=== PATIENT | female | born 1960 | race Caucasian/White ===

== ENCOUNTER 2018-03-28 11:19 | Emergency (ER) | payer OTHER, SELFPAY ==
[2018-03-28 11:23] VITALS: BP 156/100; PULSE 92; RESP 18; TEMP 36.7; O2SAT 93
--- NOTE | 2018-03-28 11:49 | DI.CT_ITS ---
SYMPTOMS/DIAGNOSIS: SURGICAL HARDWARE, ANTERIOR NECK STIFFNESS, SPASM CERVICAL CT: CT examination of the cervical region was performed without contrast administration. The visualized portions of the brain appear intact. The orbital structures appear intact. The temporal bone structures and mastoid air cells are unremarkable. The visualized paranasal sinuses are clear. The tracheal laryngeal structures appear normal. No cervical mass or adenopathy seen. No mass of the visualized portions of superior mediastinum. The visualized lung apices are clear. Note is made of cervical fusion anteriorly at the C 5 - 6 and C 7 levels which appears to have been present on previous examinations including chest film of November [address] of 2014. There appears to be new hardware at the C 7 - T 1 level both in the anterior vertebral bodies and cerclage wires are present in the posterior elements. There appears to be slight anterior spondylolisthesis of C 7 on T 1 which was not present on previous examination of 2014. I would request that examinations from outside institutions be obtained to evaluate the possibility that the spondylolisthesis is acute or subacute. No evidence of abscess by noncontrast criteria. CONCLUSION: No neck mass or adenopathy. Post surgical changes of the lower cervical spine and C-T junction some of which appear to be new. Please correlate with the patient's surgical history and if clinically appropriate, previous scans or radiographs could be obtained for comparison to evaluate any significant change in alignment.
[2018-03-28 11:53] VITALS: RESP 18
--- NOTE | 2018-03-28 11:56 | ED.GENADUL_ITS ---
Discharge Plan Discharge Details Chief Complaint: SOB Clinical Impression: Cervical paraspinous muscle spasm Primary Care Provider: Kourtney Chahal ED Provider: Tristin Lemus Disposition Patient Disposition: HOME Condition: Improving Home Meds and New Rx's Prescriptions: New baclofen 10 mg tablet 10 mg PO TID PRN (Reason: Muscle pain and spasm) Qty: 20 RF: 0 Continue ipratropium-albuterol [Combivent Respimat] 4 GM mist 1 puff Inhalation QID PRNQty: 1 RF: 12 hydrochlorothiazide 25 MG tablet 1 tab PO DAILY Qty: 90 RF: 12 trazodone 150 MG tablet 150 mg PO HS Qty: 90 RF: 11 prazosin 1 MG capsule PO HS Qty: 100 RF: 2 Citalopram Hydrobromide [Citalopram HBr] 10 MG tablet 10 mg PO DAILY Qty: 90 RF: 11 clonazepam 0.5 MG tablet 0.5 mg PO DAILY PRNQty: 10 RF: 2 Discharge Instructions Instructions: Cervical Strain (ED), Muscle Spasm (ED) Additional Instructions: Please follow-up with Dr. Chahal in the clinic for recheck. Call for an appointment the next 7-14 days time. I do recommend you follow-up with Dr. Dobson at for recheck as well. Continue previously prescribed medications, and may begin baclofen, as prescribed, as needed up to 3 times daily for neck pain and spasm. This may cause mild sedation and should be used with caution with your as needed clonazepam. Return to the ER for worsening pain, the development of weakness, numbness or tingling in the hands or fingers, or any other concern Stand Alone Forms: Physical Therapy Referral Medical Decision Making Medical Records 57-year-old female with bilateral anterior cervical's tenderness and spasm over weeks to months time. She is a history of previous cervical fixation. She is afebrile, well-appearing, with normal motor and sensory exam. She is quite tender overlying sternocleidomastoid bilaterally as well as posteriorly in the paraspinous musculature. She has had some ongoing anxiety and feels that her neck discomfort has been worse since decreasing her use of clonazepam in conjunction with her primary care physician Differential diagnosis includes displaced cervical hardware, edema or infection , muscular spasm. Patient had screening CT scan of the cervical spine and was given baclofen by mouth. CT does not show any soft tissue abnormalities. There is no acute findings of the exception of anterolisthesis since placement of hardware in comparison to previous exam. Patient improved with baclofen. I did discuss case with her primary care physician Dr. Chahal, who agrees a trial of baclofen, referral to physical therapy. Patient stable and improved, appropriate for discharge to home HPI - General Adult General Mode of arrival: ambulatory . Date/Time Provider Initiated Documentation: 03/28/18 11:31 . Limitations to Documentation: no limitations . Information obtained by: patient and family . History of Present Illness 57 year old F presents to the emergency department with the chief complaint of Next, described as moderate, Quality is described as aching, and is localized to the neck. Patient reports no radiation. Patient started experiencing this week(s) and it has been intermittent. No relieving factors improve symptom(s), No exacerbating factors reported . HPI Narrative: 57-year-old female presents from home with her daughter. She states that she has had weeks of near daily episodes of anterior lateral, moderate, nonradiating neck stiffness it is aching constant. It is been worse since having decreased use of as needed clonazepam that she uses for mood. She admits to ongoing moderate to severe anxiety regarding her discomfort, recent changes to her medicines, as well as pending trip to [place] to visit family in approximately 1 month. She states that she was seen for difficulty breathing at [facility] had a follow-up echo cardiogram that were unremarkable. She denies chest pain or shortness of breath today. She has not fallen or hurt her neck. She does not have numbness, tingling, weakness of the upper extremity. She has pre-standing fixation of cervical spine Related Data Previous Rx's Medication Instructions Recorded baclofen 10 mg PO TID PRN #20 tab 03/28/18 Allergies Allergy/AdvReac Type Severity Reaction Status Date / Time Penicillins Allergy Severe SKIN RASH Unverified 03/28/18 11:29 oxycodone AdvReac Mild NAUSEA Unverified 03/28/18 11:29 General Stated Complaint: SOB JACK: 3 Review of Systems Review of Systems 8 systems reviewed, otherwise neg PFSH Family History Mother Asthma Father Hip fracture Alcohol abuse CAD (coronary artery disease) Alzheimer disease Heart disease Sister Heart disease Brother Alcohol abuse Heart disease Hyperlipidemia Mental disorder Cerebrovascular accident Brother Alcohol abuse CAD (coronary artery disease) Brother Alcohol abuse CAD (coronary artery disease) FAMILY HISTORY Essential hypertension Hyperlipidemia Sister No problems noted. Sister No problems noted. Sister No problems noted. Sister No problems noted. Brother No problems noted. Brother Depression Daughter Depression Daughter Depression Asthma Social History Smoking/Tobacco Use Status: Former Tobacco Use Surgical History AXILLARY MASS BX BUNIONECTOMY LIVER BX Ligation of fallopian tube Reduction mammoplasty SKIN GRAFT Spinal Fusion cervical fusion Exam Const General: cooperative and comfortable Nutritional Appearance: average body habitus Orientation: alert, awake and oriented x3 HENMT Head: normal to inspection and normocephalic Eyes General: appearance normal, both eyes and all related structures Eyelids: eyelids normal Pupils: PERRL EOM: EOM intact bilaterally Neck Neck: no lymphadenopathy, no meningeal signs, tender and other (Anterior bilateral paraspinous cervical muscular spasm and tenderness. Posterior midline vertical incision is well-healed. No step-off or deformity appreciated. No posterior midline tenderness) Thyroid: thyroid normal Lymphatic: no lymphadenopathy noted Chest Chest: normal inspection of the chest Resp Effort & Inspection: normal respiratory effort and able to speak in complete sentences Auscultation: clear to auscultation bilaterally Cardio Rate: regular rate Rhythm: regular rhythm Heart Sounds: no murmurs GI Inspection: normal to inspection Palpation: soft and no hepatosplenomegaly Back/Spine/Pelvis Back: No back tenderness Thoracic/Lumbar Spine: other (Healed vertical midline posterior incisions of cervical and lumbar) Skin General skin exam: no rashes or lesions noted and no jaundice Neuro General: alert, awake and oriented x3 Cognition: normal cognition Speech: speech normal Motor: muscle tone normal throughout and strength 5/5 throughout Sensory Exam: no sensory deficits noted Extrem General: normal to inspection Right upper extremity: full ROM Left upper extremity: full ROM Psych Appearance: grossly normal Mood: congruent mood Affect: normal affect Course Vital Signs Temperature 36.7 C 03/28/18 11:23 Pulse 92 H 03/28/18 11:23 Respiratory Rate 18 03/28/18 11:23 Blood Pressure 156/100 H 03/28/18 11:23 Pulse Oximetry 93 L 03/28/18 11:23 Temperature 36.7 C 03/28/18 11:23 Pulse 92 H 03/28/18 11:23 Respiratory Rate 18 03/28/18 11:23 Blood Pressure 156/100 H 03/28/18 11:23 Pulse Oximetry 93 L 03/28/18 11:23
[2018-03-28] MEDS: Baclofen 10 MG TAB PO (11:57)
[2018-03-28 12:33] VITALS: BP 133/92; PULSE 88; RESP 18; TEMP 36.7; O2SAT 93
[2018-03-28 13:05] VITALS: BP 133/92; PULSE 88; RESP 18; TEMP 36.7; O2SAT 93
== END 2018-03-28 13:25 | disposition home or self-care (01) ==
PROVIDERS: Emergency Provider Emergency Medicine; PCP Family Medicine
DX: M62.838 Other muscle spasm (principal)
CPT/HCPCS: 99284; 70490

== ENCOUNTER 2018-05-03 07:58 | Outpatient (CLI) | payer OTHER, SELFPAY ==
--- NOTE | 2018-05-03 08:45 | DI.US_ITS ---
SYMPTOMS/DIAGNOSIS: GLOBUS SENSATION, F45.8, DYSPHAGIA, R13.10, HOARSENESS OF VOICE, R49.0, DYSPNEA, R06.00 THYROID ULTRASOUND: Routine examination. Comparison CT scan of the neck is from 03/28/18. The right lobe of the thyroid gland measures 4.5 x 2 x 2 cm. There is a small 0.2 cm avascular cystic lesion in the inferior pole of the right lobe. There is normal blood flow to the right lobe of the thyroid gland. The isthmus measures 0.5 cm. The left lobe measures 3.7 x 1.1 x 1.4 cm. There is a 1 x 0.5 x 0.9 cm slightly hypoechoic avascular nodule in the lower pole of the left thyroid gland. IMPRESSION: A 1.0 cm solid avascular left thyroid nodule. The finding is nonspecific. Followup as clinically appropriate. Otherwise negative thyroid ultrasound.
== END 2018-05-03 08:18 ==
PROVIDERS: PCP Family Medicine; Visit Provider Otolaryngology Otolaryngology/Facial Plastic Surgery
DX: F45.8 Other somatoform disorders (principal); R13.10 Dysphagia, unspecified; R49.0 Dysphonia; R06.00 Dyspnea, unspecified; E04.1 Nontoxic single thyroid nodule
CPT/HCPCS: 76536

== ENCOUNTER 2018-05-10 00:48 | Outpatient (CLI) | payer OTHER, SELFPAY ==
--- NOTE | 2018-05-10 09:09 | DI.RAD_ITS ---
SYMPTOMS/DIAGNOSIS: DYSPHAGIA, R13.10, GLOBUS SENSATION, F45.8 MODIFIED BARIUM SWALLOW: Fluoroscopy Time: 1.52 min The patient swallowed without difficulty. There is no abnormality involving the oropharynx or hypopharynx. There is no evidence of a mass or diverticulum. Please see the procedure report of Bonny Becker for further information.
== END 2018-05-10 01:08 ==
PROVIDERS: PCP Family Medicine; Visit Provider Otolaryngology Otolaryngology/Facial Plastic Surgery
DX: R13.10 Dysphagia, unspecified (principal); F45.8 Other somatoform disorders
CPT/HCPCS: 74220

== ENCOUNTER 2018-05-10 02:35 | Outpatient (CLI) | payer OTHER, SELFPAY | END 2018-05-10 02:55 | PROVIDERS: PCP Family Medicine | DX: R13.12 Dysphagia, oropharyngeal phase (principal) | CPT/HCPCS: 92611 ==

== ENCOUNTER 2018-07-12 01:53 | Outpatient (CLI) | payer OTHER, SELFPAY ==
[2018-07-12 10:08] LABS: HCT 46.5 % (36.0-46.0); Mean Corp. HGB Concentration 32.3 g/dL (32.0-36.0); Mean Corpuscular Volume 96.1 fL (80-95); Mean Platelet Volume 9.2 fL (8.0-11.0); Platelet Count 269 x1000/uL (130-400); RBC 4.84 m/cumm (4.00-5.20); RBC Distribution Width 12.7 % (11.7-14.6); White Blood Cell Count 8.96 k/cumm (4.4-10.8)
[2018-07-12 11:10] LABS: ALT 23 U/L (12-78); AST 16 U/L (15-37); Albumin 3.8 g/dL (3.4-5.0); Alkaline Phosphatase 75 U/L (46-116); Anion Gap 6.2 mmol/L (3-11); BUN 16 mg/dL (7-18); Bilirubin, Total 0.3 mg/dL (0.2-1.0); CO2 30.8 mmol/L (21.0-32.0); CREATININE 0.86 mg/dL (0.55-1.02); Calcium 9.6 mg/dL (8.5-10.1); Chloride 104 mmol/L (98-107); Cholesterol 261 mg/dL (50-200); Glucose 89 mg/dL (70-100); HDL Cholesterol 74 mg/dL (40-60); LDL CHOLESTEROL 160 mg/dL (<100); Potassium 4.8 mmol/L (3.5-5.1); Sodium 141 mmol/L (136-145); Total Protein 7.3 g/dL (6.4-8.2); Triglyceride 149 mg/dL (30-150)
== END 2018-07-12 02:13 ==
PROVIDERS: PCP Family Medicine; Visit Provider Family Medicine
DX: I10 Essential (primary) hypertension (principal); D75.1 Secondary polycythemia; I27.20 Pulmonary hypertension, unspecified
CPT/HCPCS: 36415; 80053; 80061; 83721; 85027; 85025

== ENCOUNTER 2018-10-17 15:56 | Outpatient (CLI) | payer OTHER, SELFPAY ==
--- NOTE | 2018-10-17 09:10 | DI.RAD_ITS ---
SYMPTOMS/DIAGNOSIS: ABD PAIN, DIVERTICULITIS, CONSTIPATION, R10.9, K57.92, K59.00 ABDOMEN: Three views were obtained. The bowel gas is unremarkable. No gross free intraperitoneal air identified on upright view.
== END 2018-10-17 16:16 ==
PROVIDERS: PCP Family Medicine; Visit Provider Family Medicine
DX: R10.9 Unspecified abdominal pain (principal); K57.92 Diverticulitis of intestine, part unspecified, without perforation or abscess without bleeding; K59.00 Constipation, unspecified
CPT/HCPCS: 74018

== ENCOUNTER 2019-03-06 16:23 | Outpatient (CLI) | payer OTHER, SELFPAY ==
[2019-03-06 17:08] LABS: Abs Immature Grans 0.02 k/cumm (0.0-0.09); Absolute Eosinophil Count 0.34 k/cumm (0.0-0.7); Absolute Lymphocyte Count 3.06 k/cumm (1.2-3.4); Absolute Monocyte Count 0.51 k/cumm (0.11-0.7); Absolute Neutrophil Count 4.48 k/cumm (1.2-6.7); Basophils % 1.2; HCT 47.5 % (36.0-46.0); HGB 15.7 g/dL (12.0-15.5); Immature Grans % 0.2; Mean Corp. HGB Concentration 33.1 g/dL (32.0-36.0); Mean Corpuscular Hemoglobin 32.3 pg (27.0-33.0); Mean Corpuscular Volume 97.7 fL (80-95); Mean Platelet Volume 9.6 fL (8.0-11.0); Neutrophils % 52.6; Platelet Count 254 x1000/uL (130-400); RBC 4.86 m/cumm (4.00-5.20); RBC Distribution Width 13.4 % (11.7-14.6); White Blood Cell Count 8.51 k/cumm (4.4-10.8)
[2019-03-06 17:49] LABS: D-Dimer 304 ng/mlFEU (<500)
[2019-03-06 17:54] LABS: ALT 36 U/L (12-78); AST 30 U/L (15-37); Albumin 4.1 g/dL (3.4-5.0); Alkaline Phosphatase 92 U/L (46-116); Anion Gap 9.3 mmol/L (3-11); BUN 14 mg/dL (7-18); Bilirubin, Total 0.3 mg/dL (0.2-1.0); CO2 29.7 mmol/L (21.0-32.0); CREATININE 0.97 mg/dL (0.55-1.02); Calcium 9.4 mg/dL (8.5-10.1); Chloride 101 mmol/L (98-107); Estimated GFR 58.98 (mL/min/1.73m2); Glucose 117 mg/dL (70-100); Potassium 3.8 mmol/L (3.5-5.1); Sodium 140 mmol/L (136-145); TSH (W/Ref FT4) 1.86 uIU/mL (0.36-3.74); Total Protein 7.8 g/dL (6.4-8.2)
== END 2019-03-06 16:43 ==
PROVIDERS: PCP Family Medicine; Visit Provider Family Medicine
DX: D75.1 Secondary polycythemia (principal); I27.20 Pulmonary hypertension, unspecified; R06.02 Shortness of breath
CPT/HCPCS: 36415; 80053; 84443; 85025; 85379

== ENCOUNTER 2019-03-12 01:27 | Outpatient (CLI) | payer OTHER, SELFPAY ==
--- NOTE | 2019-03-12 08:31 | DI.CT_ITS ---
SYMPTOM/DIAGNOSIS: K SOB D75.1, I 27.20, R06.[address]: 03/12 CT examination of the chest was performed with a bolus infusion of 70 cc Omnipaque 350. Note is made of anterior fusion of the lower cervical spine. Fixation plate and screws in place. Images obtained through the upper abdomen show unremarkable appearance of visualized portions of liver, spleen, pancreas, adrenals and kidneys. There is no evidence of mediastinal or hilar adenopathy. No evidence of pulmonary embolic disease. No thoracic aortic dissection or aneurysm. The lungs are clear with mild scattered central lobular emphysematous changes. Tracheobronchial tree appears intact. CONCLUSION: Mild changes of emphysema. No other specific abnormality.
[2019-03-12] MEDS: Omnipaque 350 MG/ML 100 ML BTL IJ (08:51)
== END 2019-03-12 01:47 ==
PROVIDERS: PCP Family Medicine; Visit Provider Family Medicine
DX: D75.1 Secondary polycythemia (principal); I27.20 Pulmonary hypertension, unspecified; R06.02 Shortness of breath; J43.9 Emphysema, unspecified
CPT/HCPCS: 71260; J3490

== ENCOUNTER 2019-03-27 00:34 | Outpatient (CLI) | payer OTHER, SELFPAY ==
--- NOTE | 2019-03-27 07:30 | MERGE_ITS ---
*[facility]* *[facility]* [address] [place] [address] Date of study: 03/27/2019 Transthoracic Echocardiography M-mode, complete 2D, complete spectral Doppler, and color Doppler *STUDY CONCLUSIONS* Summary: 1. Left ventricle: The cavity size was normal. Systolic function was normal. The estimated ejection fraction was 60-65%. There was no evidence of elevated ventricular filling pressure by Doppler parameters. 2. Aorta: Ascending aortic diameter: 3.9cm (S). 3. Ascending aorta: The ascending aorta was moderately dilated. 4. Right ventricle: The cavity size was normal. Wall thickness was normal. Systolic function was normal. 5. Pulmonary arteries: Pulmonary systolic pressure was in the range of 20mm Hg to 30mm Hg. 6. Inferior vena cava: The vessel was patent and normal in size. The respirophasic diameter changes were in the normal range (greater than or equal to 50%), consistent with normal central venous pressure. *PATIENT PRESENTATION* Height: 167.6cm (66in ) S/D Pressure: 141 / 85 Weight: 93.9kg (206.6lb ) BSA: 2.13m^2 Test start time: 07:45 AM. Test stop time: 08:40 AM. CONSULTING Kourtney Chahal ORDERING Kourtney Chahal REFERRING Kourtney Chahal PERFORMING Unknown PERFORMING [facility] MUSIC AGENT Giuliana Gerardo, (Lili)(KAVON)ROBERT *PROCEDURE DATA* Procedure information: The patient was identified by two identifiers. This study was interpreted by [facility]. Pertinent images and digital data are archived for permanent storage and are available for subsequent review. Comparison was made to the study of 12/22/2017. Study status: Routine. Transthoracic echocardiography. M-mode, complete 2D, complete spectral Doppler, and color Doppler. A Transthoracic Echocardiogram was performed. Scanning was performed from the parasternal, apical, subcostal, and suprasternal notch acoustic windows. Images were obtained using an [id number] cardiac ultrasound machine. Image quality was adequate. Study completion: The patient tolerated the procedure well. History: PMH: Pulmonary HTN SOB. I27.20 r06.02. *CARDIAC ANATOMY* Left ventricle: The cavity size was normal. Systolic function was normal. The estimated ejection fraction was 60-65%. There was no evidence of elevated ventricular filling pressure by Doppler parameters. Aortic valve: Doppler: There was no stenosis. There was no regurgitation. VTI ratio of LVOT to aortic valve: 0.75. Valve area (VTI): 2.4cm^2. Indexed valve area (VTI): 1.1cm^2/m^2. Peak velocity ratio of LVOT to aortic valve: 0.76. Valve area (Vmax): 2.5cm^2. Indexed valve area (Vmax): 1.2cm^2/m^2. Mean velocity ratio of LVOT to aortic valve: 0.8. Valve area (Vmean): 2.6cm^2. Indexed valve area (Vmean): 1.2cm^2/m^2. Mean gradient (S): 2.8mm Hg. Peak gradient (S): 4.5mm Hg. Aorta: Aortic root: The aortic root was normal in size. Ascending aorta: The ascending aorta was moderately dilated. Mitral valve: Doppler: There was no evidence for stenosis. There was no significant regurgitation. Valve area by pressure half-time: 4cm^2. Indexed valve area by pressure half-time: 1.9cm^2/m^2. Left atrium: The atrium was normal in size. Atrial septum: Poorly visualized. Right ventricle: The cavity size was normal. Wall thickness was normal. Systolic function was normal. Pulmonic valve: Doppler: There was no evidence for stenosis. There was no significant regurgitation. Peak gradient (S): 2.5mm Hg. Tricuspid valve: Doppler: There was mild regurgitation. Pulmonary artery: Poorly visualized. Pulmonary systolic pressure was in the range of 20mm Hg to 30mm Hg. Right atrium: The atrium was normal in size. Pericardium: There was no pericardial effusion. Systemic veins: Inferior vena cava: Well visualized. The vessel was patent and normal in size. The respirophasic diameter changes were in the normal range (greater than or equal to 50%), consistent with normal central venous pressure. Baseline ECG: Normal sinus rhythm. Measurements Left ventricle Value 12/22/2017 Reference LV ID, ED, PLAX 3.7 cm 4.1 3.5 - 6.0 LV ID, ES, PLAX 2.5 cm 2.8 2.1 - 4.0 LV PW thickness, ED, PLAX 1.1 cm 1.0 LV end-diastolic volume, 65 ml 43 1-p A2C LV ejection fraction, 1-p 61 % 70 A2C LV end-diastolic volume, 56 ml 76 1-p A4C LV ejection fraction, 1-p 56 % 65 A4C LV e', lateral 0.093 m/sec 0.087 LV E/e', lateral 5 8 LV e', medial 0.094 m/sec 0.069 LV E/e', medial 5 10 LV e', average 0.094 m/sec 0.078 LV E/e', average 5 9 Ventricular septum Value 12/22/2017 Reference IVS thickness, ED, PLAX 1.3 cm 1.0 LVOT Value 12/22/2017 Reference LVOT ID, A-P 2.0 cm 2.0 LVOT area 3.2 cm^2 3.1 LVOT peak velocity, S 0.8 m/sec 0.97 LVOT mean velocity, S 0.64 m/sec 0.75 LVOT VTI, S 17.3 cm 21.6 LVOT peak gradient, S 2.6 mm Hg 3.8 LVOT mean gradient, S 1.8 mm Hg 2.5 Stroke volume (SV), LVOT 56 ml 66 DP Stroke index (SV/bsa), 26 ml/m^2 34 LVOT DP Aortic valve Value 12/22/2017 Reference Aortic valve peak 1.1 m/sec 1.3 velocity, S Aortic valve mean 0.8 m/sec 0.9 velocity, S Aortic valve VTI, S 23.0 cm 25.9 Aortic mean gradient, S 2.8 mm Hg 3.4 Aortic peak gradient, S 4.5 mm Hg 6.5 VTI ratio, LVOT/AV 0.75 0.83 Aortic valve area, VTI 2.4 cm^2 2.6 Velocity ratio, peak, 0.76 0.76 LVOT/AV Aortic valve area, peak 2.5 cm^2 2.4 velocity Velocity ratio, mean, 0.8 0.85 LVOT/AV Aortic valve area, mean 2.6 cm^2 2.6 velocity Aortic valve area/bsa, 1.2 cm^2/m^2 1.3 mean velocity Aorta Value 12/22/2017 Reference Aortic root ID, ED 3.6 cm 3.4 Ascending aorta ID, A-P, S 3.9 cm 3.8 Left atrium Value 12/22/2017 Reference LA ID, A-P, ES 2.7 cm 2.2 LA ID/bsa, A-P 1.3 cm/m^2 1.1 <=2.2 LA volume/bsa, ES, 1-p A4C 24 ml/m^2 14 LA volume, ES, 2-p 45 ml 36 LA volume/bsa, ES, 2-p 21 ml/m^2 18 LA/aortic root ratio 0.76 0.66 Mitral valve Value 12/22/2017 Reference Mitral E-wave peak 0.5 m/sec 0.66 velocity Mitral A-wave peak 0.78 m/sec 0.86 velocity Mitral deceleration time 191 ms 244 150 - 230 Mitral pressure half-time 55 ms 71 Mitral E/A ratio, peak 0.64 0.77 Mitral valve area, PHT, DP 4 cm^2 3.1 Tricuspid valve Value 12/22/2017 Reference Tricuspid regurg peak 2.5 m/sec 2.8 velocity Tricuspid peak RV-RA 24.2 mm Hg 31.6 gradient Right atrium Value 12/22/2017 Reference RA area, ES, A4C 11.5 cm^2 12 8.3 - 19.5 Pulmonic valve Value 12/22/2017 Reference Pulmonic peak gradient, S 2.5 mm Hg Legend: (L) and (H) lauri values outside specified reference range. I have personally reviewed the images and have reviewed and edited the reported findings. Electronically signed by Satish Dickens MD 03/27/2019 13:13
== END 2019-03-27 00:54 ==
PROVIDERS: PCP Family Medicine; Visit Provider Family Medicine
DX: I27.20 Pulmonary hypertension, unspecified (principal); R06.02 Shortness of breath; I35.1 Nonrheumatic aortic (valve) insufficiency
CPT/HCPCS: 93306

== ENCOUNTER 2019-04-18 01:01 | Outpatient (CLI) | payer OTHER, SELFPAY ==
--- NOTE | 2019-04-18 10:00 | DI.MAMMO_ITS ---
EXAM: MG MAMMO SCREENING CLINICAL HISTORY: Screening, Z12.31. TECHNIQUE: Mammograms were interpreted according to the usual protocol including computer analysis w real trends CAD system, tomosynthesis and C-view imaging. COMPARISON: No exams were available for comparison FINDINGS: The breast tissue is moderately radiodense. There is no evidence of a mass. There are no suspicious calcifications. IMPRESSION: There is no evidence of malignancy, category 1, yearly screening mammography is recommended. BI-RADS category B BI-RADS Cat 1 - Negative Breast Density - Category B - Scattered areas of fibroglandular density
== END 2019-04-18 01:21 ==
PROVIDERS: PCP Family Medicine; Visit Provider Family Medicine
DX: Z12.31 Encounter for screening mammogram for malignant neoplasm of breast (principal)
CPT/HCPCS: 77063; 77067

== ENCOUNTER 2019-06-11 08:58 | Day surgery (SDC) | payer OTHER, SELFPAY ==
--- NOTE | 2019-06-11 06:47 | COLE_ITS ---
Date of service: 06/11/19 Time of Service: 10:07 Colonoscopy Report Date of procedure: 06/11/19 Pre-op diagnosis general: Colon CAncer Screening and change in bowel habits Post-op diagnosis procedure note: other (Polyps, diverticulosis) Procedure: Colonoscopy with polypectomy by cold forceps Surgeon: Karon Dao Anesthesia proc note operative: other (General/ ASA 3/Jami Rodriguez, CUSTOMER ENGAGEMENT MANAGER) Estimated blood loss (mL): 3 Complications: None Disposition: same day Indications: Mrs. Du is a pleasant 58 year old female seen in the office for a screening colonoscopy. She also has noted some change in bowel habits. Risks, benefits and complications have been reviewed. Complications include but are not limited to bleeding, pain, perforation, missed small lesion/polyp, sore throat, aspiration and adverse reaction to the medications. Questions were entertained and answered to their satisfaction and they wished to proceed. No guarantees were given or implied. Prep: Miralax/Dulcolax Procedure Start Time: 10:07 Procedure End Time: 10:38 Retraction Time: 23 minutes Findings: Moderate descending and sigmoid diverticulosis Multiple polyps Procedure Description: After informed consent was obtained the patient was taken to the procedure room and placed in a left decubitous position. Monitors were applied and a time out was done. The patients name, date of , procedure, allergies to medications and metal in their body was reviewed. The patient was then sedated. Once sedated and comfortable a rectal exam was done. External exam was normal. Internal exam revealed a normal sphincter tone and no palpable masses. The scope was then introduced and retro-flexed. No internal hemorrhoids, or masses were identified on retro-flexion. The scope was then advanced to the cecum without difficulty. The TI and appendiceal orifice were identified. The prep was adequate. The scope was then slowly retracted over 23 minutes back into the rectum. Polyps were removed with cold forceps in the Ascending colon x2, descending colon x1 and rectal polyps x2. There was moderate diverticulosis of the descending and sigmoid colon. The scope was removed and the patient was woken up and taken back to Same day surgery in stable condition. The patient tolerated the procedure well and there were no immediate complications. Follow up: The patient should follow up in 3-5 years unless they develop changes in bowel habits or other new gastrointestinal complaints.
--- NOTE | 2019-06-11 06:50 | W.PM.DSUDISC ---
Discharge Plan Disposition Patient Disposition: HOME Condition: Good Discharge Details Reason For Visit: SCREENING Attending Provider: Karon Dao Primary Care Provider: Kourtney Chahal Home Meds and New Rx's Prescriptions: Continued Symbicort 160-4.5 mcg/actuation HFA aerosol inhaler 2 puff IH BID Qty: 10.2 RF: 6 albuterol sulfate 90 mcg/actuation HFA aerosol inhaler 2 puff IH QID RF: 0 ipratropium-albuterol 20-100 mcg/actuation mist 1 puff IH QID RF: 0 hydrochlorothiazide 25 mg tablet 25 mg PO DAILY Qty: 90 RF: 3 trazodone 150 mg tablet 150 mg PO HS PRN (Reason: insomnia) Qty: 90 RF: 4 lorazepam 0.5 mg tablet 0.5 mg PO BID PRN (Reason: anxiety) Qty: 45 RF: 0 Discontinued polyethylene glycol 3350 17 gram/dose powder 238 g PO ONCE Qty: 238 RF: 0 bisacodyl [Dulcolax (bisacodyl)] 5 mg tablet,delayed release (DR/EC) 5 mg PO ONCE Qty: 4 RF: 0 Discharge Instructions Instructions: Colonoscopy (DC), Diverticulosis (DC), Colorectal Polyps (DC) Additional Instructions: Findings: 5 small polyps Diverticulosis Follow up: 3-5 years. You will receive a letter with my final recommendations in about 7-10 days Please call if you develop: fevers >101.5 Nausea or Vomiting Abdominal pain that is not transient DAY SURGERY UNIT POST ENDOSCOPY INSTRUCTIONS 1. Because there will be medication in your system for the next 24 hours, you may feel a little sleepy. Your coordination will be affected. Therefore: a. Do not drive or operate dangerous equipment for 24 hours. b. Do not drink alcohol beverages for 24 hours (not even beer). c. Plan to go home and rest for the day. 2. Generally there are no restrictions on your activity after a day or so has gone by, but you may feel a bit fatigued for a few days. 3 After you arrive home you may have a light meal and return to a normal diet as you can tolerate it without feeling sick to your stomach. 4. After surgery, you may feel pain or discomfort. This should be only transient, but if it persists please contact your doctor. 5. If there are any questions regarding the findings of your procedure, please feel free to contact your doctor. 6. If you are unable to contact your doctor with a problem, contact the hospital at [phone]. 7. Continue all your regular medications unless directed otherwise. I understand the above instructions and have no questions. Signature of Patient or Responsible Adult Escort Date/Time Name of Responsible Adult Escort Signature of Nurse Date/Time Activity:: Activity as Tolerated Diet:: High Fiber diet Discharge Orders Discharge Orders: Discharge Order (Routine); Ordered 06/11/19 Ordered By: Karon Dao DS: Diagnosis Discharge Diagnosis (1) S/P colonoscopy: Status: Acute (2) Colorectal polyps: Status: Acute
[2019-06-11 09:07] VITALS: BP 148/103; PULSE 97; RESP 16; TEMP 37; O2SAT 89
[2019-06-11] MEDS: Lactated Ringers 1,000 ML 80 ML IV (09:48)
--- NOTE | 2019-06-11 10:17 | BOWEL_PTH ---
PATIENT: Kandi Du LOC: [facility] U#:[id number] AGE/SX: 58/F ROOM: RE06/11/[address]: Karon Dao MD : 1960 BED: DIS: 06/11/2019 SPEC #: [id number] RECD: 06/11/19 11:37 STATUS: DANILO REQ #: [id number] JAYA: 06/11/19 10:[address]: Karon Dao DEPT: Surgical Specimen RECD BY: Lupe Cummins ENTERED: 06/11/19 11:38 SP TYPE: Bowel OTHR DR: Kourtney Chahal MD, DC Tissues: 1 - BIOPSY BOWEL 2 - BIOPSY BOWEL 3 - BIOPSY BOWEL Procedures: GROSS AND MICRO LEVEL 4 Comments: [id number]
[2019-06-11 11:27] VITALS: BP 135/91; PULSE 73; RESP 16; TEMP 36.2; O2SAT 92
== END 2019-06-11 11:32 | disposition home or self-care (01) ==
LOC: SUR 08:58
PROVIDERS: PCP Family Medicine; Visit Provider Surgery
PROC: 0DJD8ZZ Inspection of Lower Intestinal Tract, Via Natural or Artificial Opening Endoscopic (ICD-10-PCS; CPT 45378; principal; 2019-06-11 10:15)
DX: Z12.11 Encounter for screening for malignant neoplasm of colon (principal); K59.09 Other constipation; K57.30 Diverticulosis of large intestine without perforation or abscess without bleeding; D12.2 Benign neoplasm of ascending colon; D12.4 Benign neoplasm of descending colon; K62.1 Rectal polyp; K63.89 Other specified diseases of intestine
CPT/HCPCS: 45380; 88305

== ENCOUNTER 2019-07-31 18:15 | Outpatient (REF) | payer OTHER, SELFPAY ==
--- NOTE | 2019-07-31 16:00 | PAPFT_PTH ---
PATIENT: Kandi Du LOC: [facility] U#:[id number] AGE/SX: 58/F ROOM: RE07/31/[address]: Kourtney Chahal MD, DC : 1960 BED: DIS: 07/31/2019 SPEC #: [id number] RECD: 07/31/19 18:25 STATUS: DANILO REQ #: [id number] JAYA: 07/31/19 16:[address]: Kourtney Chahal DEPT: [facility] Cytology RECD BY: Myranda Reeder Tissues: 1 - CX/ENDOCX FOR PAP SMEARS Procedures: PAP THIN PREP/UVM Screening HPV DNA PROBE Comments: [id number]
== END 2019-07-31 18:35 ==
LOC: LBN 18:15
PROVIDERS: PCP Family Medicine; Visit Provider Family Medicine
DX: Z12.4 Encounter for screening for malignant neoplasm of cervix (principal)
CPT/HCPCS: 88142; 87624

== ENCOUNTER 2019-09-03 09:14 | Outpatient (CLI) | payer OTHER, SELFPAY ==
[2019-09-03 09:48] LABS: HCT 45.5 % (36.0-46.0); Mean Corpuscular Hemoglobin 31.3 pg (27.0-33.0); Mean Platelet Volume 9.2 fL (8.0-11.0); Platelet Count 354 x1000/uL (130-400); RBC 4.79 m/cumm (4.00-5.20); RBC Distribution Width 13.2 % (11.7-14.6); White Blood Cell Count 9.79 k/cumm (4.4-10.8)
[2019-09-03 10:53] LABS: Magnesium 2.2 mg/dL (1.8-2.4); Uric Acid 5.7 mg/dL (2.6-6.0)
[2019-09-03 11:15] LABS: ESR 21 mm/hr (0-30)
[2019-09-03 12:51] LABS: Vitamin D 25 Total 29.9 ng/ml (30-100)
[2019-09-03 14:01] LABS: Calculated LDL 145 mg/dL (<100); Cholesterol 241 mg/dL (<200); HDL Cholesterol 70 mg/dL (40-60); Triglyceride 133 mg/dL (<150); Vitamin B12 587 pg/mL (193-986)
[2019-09-04 09:53] LABS: Alpha 1 Antitrypsin,Serum 116 mg/dL (90-200)
[2019-09-04 11:49] LABS: Hepatitis C Ab w Rflx HCV PCR Reactive (Negative)
[2019-09-06 08:37] LABS: HCV RNA Detection Quantitative 0 IU/mL (Undetected)
== END 2019-09-03 09:34 ==
PROVIDERS: PCP Family Medicine; Visit Provider Family Medicine
DX: I10 Essential (primary) hypertension (principal); E11.9 Type 2 diabetes mellitus without complications; G62.9 Polyneuropathy, unspecified; M25.50 Pain in unspecified joint; J44.9 Chronic obstructive pulmonary disease, unspecified
CPT/HCPCS: 36415; 80061; 82306; 85027; 85652; 86803; 82103; 82607; 83036; 83735; 84550; 87522

== ENCOUNTER 2019-09-17 06:10 | Day surgery (SDC) | payer OTHER, SELFPAY ==
[2019-09-17 06:36] VITALS: BP 129/82; PULSE 80; RESP 18; TEMP 36; O2SAT 92
[2019-09-17] MEDS: Lactated Ringers 1,000 ML 80 ML IV (07:10)
[2019-09-17] MEDS: ceFAZolin 1 GM/50 ML BAG IVPB (12:25)
--- NOTE | 2019-09-17 13:05 | W.PM.DSUDISC ---
Discharge Plan Disposition Patient Disposition: HOME Condition: Good Discharge Details Reason For Visit: NEWSOME'S NEUROMA (R) FOOT Attending Provider: Tristin Gonzalez Primary Care Provider: Kourtney Chahal Home Meds and New Rx's Prescriptions: New ibuprofen 600 mg tablet 600 mg PO TID Qty: 30 RF: 0 hydrocodone-acetaminophen 5-325 mg tablet 1 tab PO Q6H PRN (Reason: pain) Qty: 7 RF: 0 Continued albuterol sulfate 90 mcg/actuation HFA aerosol inhaler 2 puff IH QID PRN (Reason: bronchospasm) RF: 0 hydrochlorothiazide 25 mg tablet 25 mg PO DAILY Qty: 90 RF: 3 trazodone 150 mg tablet 150 mg PO HS PRN (Reason: insomnia) Qty: 90 RF: 4 lorazepam 0.5 mg tablet 0.5 mg PO BID PRN (Reason: anxiety) Qty: 45 RF: 0 Discharge Instructions Additional Instructions: Try to elevate R foot on 1-2 pillows as much as possible for next 48 hours. May put as much weight on R foot as your pain allows. Crutches to walk. Discontinue crutches when you can step on R foot with minimal discomfort. May remove dressings, shower, and get incision wet in 72 hours. May leave incision uncovered when it is dry and sealed. After you remove dressings in 72 hours, can wear usual walking shoes/sneakers when you fit in them comfortably. Follow up with in 3 weeks. Take ibuprofen 3 times/day for 10 days to decrease swelling and inflammation. Take hydrocodone for breakthru pain, if needed. Referrals: Tristin Gonzalez MD [ [facility] STAFF PHYSICIAN] - (f/u in 3 weeks.) Equipment/Supplies: Partial Weight Bearing Crutches Activity:: Activity as Tolerated Remove Dressings/Wound Care:: 72 hours Shower/Bathe:: 72 hours Diet:: As Tolerated Discharge Orders Discharge Orders: Discharge Order (Routine); Ordered 09/17/19 Ordered By: Tristin Gonzalez DS: Diagnosis Discharge Diagnosis (1) Newsome's neuroma of right foot: Status: Acute
--- NOTE | 2019-09-17 16:19 | ROE_ITS ---
DATE OF PROCEDURE: September 17, 2019 PREOPERATIVE DIAGNOSIS: Newsome's neuroma, right foot between third and fourth toes. POSTOPERATIVE DIAGNOSIS: Same. PROCEDURE: Excision of Newsome's neuroma between third and fourth toes of the right foot. ANESTHESIA: General. SURGEON: Tristin Gonzalez M.D. SAP SPECIALIST: Damaris Zheng INDICATIONS: This is a 59-year-old white female who has been experiencing severe pain on the plantar aspect of the right foot. The pain has been progressing to the point where it's difficult for her t o walk. The pain is described as a burning pain that radiates proximally to the ankle. The pain is relieved by rest. I offered her orthotic treatment with a metatarsal pad. She did not want to try f urther conservative treatment. She wished to have the neuroma excised to alleviate her pain so that she can get walking again. The risks and complications of the procedure have been explained to the p atdipika in detail preoperatively. She is especially counseled that she will experience some numbness between the third and fourth toes following resection of the Newsome's neuroma. PROCEDURE: The patient was taken to the operating room on 09/17/2019. She was placed supine. A prox imal tourniquet was applied to the right thigh. A general anesthetic was administered. The right fo ot and ankle were prepped and draped free in the usual sterile fashion. An incision was made on the dorsum of the right foot between the third and fourth toes; it began at the web space between the thi rd and fourth toes and extended proximally about 2.5 inches. The incision was carried down through t he skin and subcu. Blunt-tipped Littler scissors were used to mobilize the soft tissue so that the i ntermetatarsal ligament was visualized. This ligament was then incised and released. The third and fourth metatarsal heads were spread with retractors and the digital nerve was encountered. The patie nt had noticeable enlargement of the digital nerve right at its bifurcation, consistent with a Newsome 's neuroma. I mobilized the digital branches to the nerve and in the distal portion of the wound I t ransected the branches of the plantar cutaneous nerve to the lateral side of the third toe and medial side of the fourth toe. I then grasped the nerve with an Allis clamp and mobilized the nerve proxim ally and put tension on the nerve to bring it up into the wound. I then transected the nerve with Li ttler scissors far proximal to the metatarsal heads. The nerve then was allowed to retract into the depths of the wound. The wound was irrigated with Betadine and saline solution. There were only a f ew bleeders and they were cauterized. The wound margins were then infiltrated with 0.5% Marcaine wit h an epinephrine solution, as was the digital nerve between the third and fourth metatarsals. The sk in edges were approximated with a running subcuticular suture followed by tissue glue. The wound was dressed with Xeroform gauze followed by fluff gauze 4x4's between the toes, wrapped with a 4-inch Ke rlix bandage and then wrapped with an LOLIS bandage. She was placed in a postop shoe. The tourniquet did not need to be used. The patient's anesthesia was reversed without complications. She was disch arged to the recovery room in good condition. The patient was later discharged home from the Day Surgery Unit when fully recovered from her anesthe noel. She was given instructions to try to elevate her right foot on one to two pillows as much as po ssible for the next 48 hours. She will use crutches to walk, weightbearing as tolerated to the right foot. She may discontinue the crutches as soon as she can step fully on her right foot with minimal pain. She may remove her dressings, shower and get her incision wet after 72 hours. She can leave the wound uncovered after 72 hours if it is dry and sealed. She may transition from the postop cristiano l to her regular shoes as soon as swelling allows her to fit comfortably in her own shoes. She will take ibuprofen 600 mg p.o. t.i.d. for ten days. She was also given a prescription of Hydrocodone wit h APAP 5/325, one tablet every six hours, if needed, for breakthrough pain. She will follow-up with me in three weeks for suture removal in the office.
== END 2019-09-17 14:06 | disposition home or self-care (01) ==
PROVIDERS: PCP Family Medicine; Visit Provider Orthopaedic Surgery
PROC: (CPT 28080; principal; 2019-09-17 07:30)
DX: G57.61 Lesion of plantar nerve, right lower limb (principal); I10 Essential (primary) hypertension
CPT/HCPCS: 28080; E0114; J0690; J1885; J2001; J2250

== ENCOUNTER 2020-01-23 09:11 | Emergency (ER) | payer OTHER, SELFPAY ==
[2020-01-23] VITALS (28 sets, daily range): BP systolic 123–163; BP diastolic 62–106; PULSE 83–118; RESP 9–40; TEMP 36.4–36.5; O2SAT 83–98
--- NOTE | 2020-01-23 09:15 | DI.US_ITS ---
EXAM: US ABDOMEN RENAL CLINICAL HISTORY: R/O Cholecystitis, vs kidney stone TECHNIQUE: Ultrasound abdomen performed using standard protocol. COMPARISON: No exams were available for comparison FINDINGS: LIVER: Normal. Mild hepatomegaly. GALLBLADDER: No evidence of cholelithiasis. No evidence of wall thickening. No pericholecystic fluid identified. KIDNEYS: Kidneys are symmetric in size. No evidence of renal calculi. No evidence of hydronephrosis. No renal mass or cyst identified. BILIARY SYSTEM: Common bile duct measures 2.8 mm. No intrahepatic biliary ductal dilation. HORTA'S SIGN: Negative. PANCREAS: Normal where visualized. SPLEEN: Not enlarged. ABDOMINAL AORTA AND IVC: Visualized portions normal caliber. ASCITES: None seen. Renal size in cm: Right: 10 left: 10.8 Echogenicity: Normal Hydronephrosis: No Cyst or mass: No Nephrolithiasis: No Other findings: None Bladder:Normal Prevoid vol:46 cc Both ureteral jets were visualized. IMPRESSION: Mild hepatomegaly otherwise negative examination. No evidence nephrolithiasis or hydronephrosis. Un remarkable gallbladder. No biliary ductal dilatation. DATA REPOSITORY:
--- NOTE | 2020-01-23 09:28 | ED.GENADUL_ITS ---
Discharge Plan Disposition Patient Disposition: HOME Condition: Stable Discharge Details Chief Complaint: Abd Prob Clinical Impression: Acute right flank pain, Incidental pulmonary nodule, less than or equal to 3mm Primary Care Provider: Kourtney Chahal ED Provider: Selina Muniz Home Meds and New Rx's Prescriptions: New ondansetron HCl [Zofran] 4 mg tablet 4 mg PO Q8H PRN (Reason: nausea and vomiting) Qty: 7 RF: 0 No Action albuterol sulfate 90 mcg/actuation HFA aerosol inhaler 2 puff IH QID PRN (Reason: bronchospasm) RF: 0 trazodone 150 mg tablet 150 mg PO HS PRN (Reason: insomnia) Qty: 90 RF: 4 lorazepam 0.5 mg tablet 0.5 mg PO BID PRN (Reason: anxiety) Qty: 45 RF: 3 ibuprofen 600 mg tablet 600 mg PO TID Qty: 30 RF: 0 Discharge Instructions Instructions: Flank Pain (ED) Additional Instructions: Follow up with primary care provider in 3-5 days. Return to ED sooner if any worsening or concerns. Increase oral fluids. On the chest CT you have a 2 mm small nodule in your right lower lobe which needs to be followed up on in the next 6 months. Return to the ED if you have any worsening pain, fever, shortness of breath, chest pain or any other concerns. Referrals: Kourtney Chahal MD, [place] [Primary Care Provider] - Discharge Data Discharge Date/Time-TO BE ENTERED AT DEPARTURE: 01/23/20 13:48 Medical Decision Making 59-year-old female presents to the ED with chief complaint of right upper quadrant abdominal pain which radiates into her back which began increased since last night. She rates his pain 10 out of 10. She reports recent weight loss 20 pounds and associated nausea. Denies fever, diarrhea. Reports straining to have a bowel movement but no constipation. She does have surgical history to her foot and back. Denies any dysuria or problems urinating. She is postmenopausal with a history of tubal ligation. Has a history of anxiety, depression, diverticulosis, hypertension, pulmonary hypertension. 0933: At this time abdominal work-up ordered including CBC, CMP, lipase, urinalysis, ultrasound of abdomen renal to rule out Cholecystitis, gallstones, renal stone. Meds ordered including normal saline 1 L, Zofran 4 mg, Dilaudid 0.5 mg. Patient is slightly tachycardic and hypertensive upon initial exam. Will observe and reevaluate. 1130: Preliminary result received from prior roof technician reports no gallstones or cholecystitis no renal stones. Patient reevaluation and, she is still complaining of moderate right upper quadrant abdominal pain. Discussed options for discharge outpatient general surgery follow-up for possible HIDA scan versus CT abdomen pelvis. Patient opted for CT at this time. GI cocktail ordered. Patient does have a history of hiatal hernia and reports increased stress at home which could be contributing to her abdominal pain. At this time vital signs have improved, heart rate is down to 85 bpm, blood pressure is 125/66. 1206: Informed by director staffing that patient's O2 sat has decreased to 87 to 91% on room air. Patient has no complaints of shortness of breath or cough. She does have some posterior right chest wall tenderness with palpation. She does have a history of COPD and states that she has weaned herself off the steroids and nebulizers recently. She is no longer taking those. Patient sat up in bed placed on 2 L oxygen nasal cannula, she does have clear lung sounds on the right, will add on a chest x-ray to rule out pneumonia or other etiology. At this time also I feel like it could be due to due to the Dilaudid and is causing the patient mild respiratory depression. CT chest abdomen pelvis resulted shows a small incidental 2 mm right upper lobe pulmonary nodule, some scarring to the bases bilateral lung puga, hepatomegaly, IMPRESSION: 1. Mild hepatomegaly. 2. Colonic diverticulosis but no evidence of acute diverticulitis. 3. No acute abdominal or pelvic process. 4. 2 mm noncalcified right upper lobe pulmonary nodule. If there are known risk factors (example smoking), follow-up CT scan in 12 months is recommended. 5. Centrilobular emphysema. 6. No acute pulmonary process. 7. These findings were discussed with the emergency department on the date of the examination. Discussed findings with patient,verbalized understanding. Discussed follow-up with PCP and follow-up CT scan in 6 to 12 months for incidental pulmonary lobe nodule. Patient verbalized understanding. Patient discharged home with Zofran 4 mg as needed for nausea vomiting and given a to go bottle of tramadol 2 tablets in it. Patient remained hemodynamically stable throughout stay. Markedly improved prior to discharge. This text was generated using Ruby Ribbonation system, please disregard any oddities of phrase or misspellings. HPI General Mode of arrival: ambulatory . Date/Time Provider Initiated Documentation: 01/23/20 09:12 . Limitations to Documentation: no limitations . Information obtained by: patient . HPI Narrative: 59-year-old female presents to the ED with chief complaint of right upper quadrant abdominal pain which radiates into her back which began increased since last night. She rates his pain 10 out of 10. She reports recent weight loss 20 pounds and associated nausea. Denies fever, diarrhea. Reports straining to have a bowel movement but no constipation. She does have surgical history to her foot and back. Denies any dysuria or problems urinating. She is postmenopausal with a history of tubal ligation. Has a history of anxiety, depression, diverticulosis, hypertension, pulmonary hypertension. Related Data Home Medications Medication Instructions Recorded Confirmed trazodone 150 mg tablet 150 mg PO HS PRN #90 tab 01/29/19 01/23/20 albuterol sulfate 90 mcg/actuation 2 puff IH QID PRN gm 07/31/19 01/23/20 aerosol inhaler ibuprofen 600 mg PO TID #30 tab 09/17/19 01/23/20 lorazepam 0.5 mg tablet 0.5 mg PO BID PRN #45 tab 10/11/19 01/23/20 ondansetron HCl [Zofran] 4 mg PO Q8H PRN #7 tab 01/23/20 Previous Rx's Medication Instructions Recorded trazodone 150 mg tablet 150 mg PO HS PRN #90 tab 01/29/19 ibuprofen 600 mg PO TID #30 tab 09/17/19 lorazepam 0.5 mg tablet 0.5 mg PO BID PRN #45 tab 10/11/19 ondansetron HCl [Zofran] 4 mg PO Q8H PRN #7 tab 01/23/20 Allergies Allergy/AdvReac Type Severity Reaction Status Date / Time Penicillins Allergy Severe SKIN RASH Unverified 01/23/20 09:24 oxycodone AdvReac Mild NAUSEA Unverified 01/23/20 09:24 General Stated Complaint: Abd Prob JACK: 3 Review of Systems Narrative: Constitutional: Negative for alert and oriented, well groomed, normal body habitus, appears uncomfortable. Recent intended weight loss of 20 pounds. HEENT: Denies trauma, headaches, blurry vision, nasal discharge, sore throat, trouble swallowing. Chest: Denies chest pain, palpitations, irregular rhythm, hypertension. Respiratory: Denies Shortness of breath, cough, hemoptysis. GI: Denies vomiting, diarrhea, constipation. Positive right upper quadrant abdominal pain radiating into the back, associated with nausea. : Denies dysuria, hematuria, rectal bleeding. Reports right flank pain. Neuro: Denies dizziness, blurry vision, weakness, syncope, headache or facial numbness. Hematologic: Denies easy bruising, intolerance to heat or cold, hair loss. 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 Insomnia (Chronic 06/14/16) Keratoacanthoma of chin (Resolved) 12/08/15 right chin Lipoma of axilla (Resolved) 07/28/15 left. removed 05/08 Memory impairment of gradual onset (Acute) Neck pain (Chronic 01/10/15) surgery March,, repeat with titanium plates and cadaver grafts 06/11/15 Polycythemia (Chronic 03/15/16) Pulmonary hypertension (Chronic 12/22/17) Right hand pain (Resolved) 08/17/17 Shortness of breath (Inactive) Speech disturbance (Chronic 07/28/15) Spondylolisthesis at L5-S1 level (Chronic 04/25/13) MRI, LUMBAR 2000: GRADE 1 2 LB surgeries with fusing Unspecified injury of head, sequela (Resolved) 07/28/15 continue post-concussive headaches Unspecified injury of right shoulder and upper arm, subsequent encounter (Resolved) 06/14/17 Surgical History AXILLARY MASS BX cervical fusion 03/2014 C5-6 fusion Teresita Valle[facility] ; 06/11/15 H/O reduction mammoplasty (Resolved) H/O skin graft (Resolved) for lumbar fusion (scars B/L flanks/buttocks H/O spinal fusion (Resolved) 07/25/99 L5-S1 History of bilateral tubal ligation (Resolved) LIVER BX S/P bunionectomy (Resolved) B/L S/P colonoscopy (Acute ~06/11/19) Hyperplastic polyps x2. Tubular adenoma x2. Sessile serrated adenoma x1. SKIN GRAFT FOR LUMBAR FUSION (SCARS B/L FLANKS/BUTTOCKS) Status post cervical spinal arthrodesis (Inactive) Family History Mother , at age 74. Asthma Father , AGE 74 Hip fracture Alcohol abuse CAD (coronary artery disease) Alzheimer disease Heart disease Sister Heart disease Alzheimer disease Brother , AGE 70 Alcohol abuse Heart disease Hyperlipidemia Mental disorder Stroke Brother , AGE 58 CAD (coronary artery disease) Stroke Depression Brother , AGE 55 Alcohol abuse CAD (coronary artery disease) FAMILY HISTORY Essential hypertension Hyperlipidemia Sister Diabetes Hyperlipidemia Sister No problems noted. Sister Asthma Sister Asthma Brother Depression Daughter Depression Daughter Depression Asthma Social History Smoking/Tobacco Use Status: Former Tobacco Use Quit Date: 07/25/10 Tobacco: How many years used: 30 Alcohol Intake: former Drug use: Occasionally Substance use type: former substance user Date of last use: LAST TIME , marijuana, heroin, opiates and painkillers Details: She consumes marijuana edibles. t-1, edibles Caregiver/Support person: No Household members: spouse Housing: house Do you need help understanding health information?: Never Pets and animals: Yes Pets and animals: cat(s) Sexually active: No Do you think of yourself as: straight/heterosexual Current gender identity: female What is your relationship status?: How often do you talk on the phone with friends or family?: three or more times per week How often do you get together with friends or relatives?: twice per week How often do you attend advent or buddhist services?: 1-3 times per year Do you belong to any clubs or organized social groups?: no Panel score (0-1 are the most socially isolated patients): 2 What type of physical activity do you participate in: swimming Duration: 60-90 minutes/day Frequency: 5-6 times per week Lisa/Anabaptist: Latter-Day Special lisa needs: No Seatbelt use: always Drive intox or ride w/intox 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 Appears stated age. Normal body habitus. Head: Normocephalic, no trauma. Eyes: Pupils PERRLA, Red reflex noted, EOM's intact. Eyelids symmetrical without lesions, discharge, or swelling. ENT: Bilateral TM's WNL, External ear normal to inspection, no mastoid TTP, swelling, or erythema, Nasal turbinates WNL, no nasal discharge. Normal dentition, Posterior pharynx WNL, no exudate. Chest: RRR, Normal S1, S2, distal pulses intact. Resp: Lungs clear to auscultation bilaterally, no wheezes, rales, or rhonchi. Musculoskeletal: Normal gait, 5/5 strength to all four extremities. Abdomen: Tender to palpation right upper quadrant, hyperactive bowel sounds all 4 quadrants. Soft, nondistended. Positive Hardin sign on initial exam. Right CVA tenderness. Skin: No suspicious rashes or lesions. Capillary refill less than 2 sec. Neurologic: Cranial nerves II-XII intact. Alert and oriented x 3. DTR's intact. Hematologic/Lymphatic: No ecchymosis, no lymphadenopathy. Course Vital Signs Vital signs: Vital Signs Temperature 36.5 C 01/23/20 09:16 Pulse 118 H 01/23/20 09:16 Respiratory Rate 18 01/23/20 09:16 Blood Pressure 147/102 H 01/23/20 09:16 Pulse Oximetry 94 L 01/23/20 09:16 Temperature 36.5 C 01/23/20 09:16 Temperature Source Temporal Artery Scan 01/23/20 09:16 Pulse 118 H 01/23/20 09:16 Respiratory Rate 18 01/23/20 09:16 Respiratory Effort Non-Labored 01/23/20 09:21 Blood Pressure 147/102 H 01/23/20 09:16 Blood Pressure Position Sitting 01/23/20 09:16 Pulse Oximetry 94 L 01/23/20 09:16 Oxygen Delivery Method Room Air 01/23/20 09:16 Oxygen Flow Rate 0 01/23/20 09:16 Pain Level 10 01/23/20 09:16
[2020-01-23 09:39] LABS: Abs Immature Grans 0.01 k/cumm (0.0-0.09); Absolute Basophil Count 0.05 k/cumm (0.0-0.2); Absolute Eosinophil Count 0.11 k/cumm (0.0-0.7); Absolute Lymphocyte Count 2.98 k/cumm (1.2-3.4); Absolute Monocyte Count 0.45 k/cumm (0.11-0.7); Absolute Neutrophil Count 5.21 k/cumm (1.2-6.7); Basophils % 0.6; Eosinophils % 1.2; HCT 46.8 % (36.0-46.0); HGB 15.3 g/dL (12.0-15.5); Immature Grans % 0.1 %; Lymphocytes % 33.8; Mean Corp. HGB Concentration 32.7 g/dL (32.0-36.0); Mean Corpuscular Hemoglobin 30.4 pg (27.0-33.0); Mean Platelet Volume 9.4 fL (8.0-11.0); Monocytes % 5.1; Neutrophils % 59.2; Platelet Count 322 x1000/uL (130-400); RBC 5.03 m/cumm (4.00-5.20); RBC Distribution Width 12.9 % (11.7-14.6); White Blood Cell Count 8.81 k/cumm (4.4-10.8)
[2020-01-23] MEDS: Ondansetron 4 MG/2 ML VIAL IVP (09:45)
[2020-01-23] MEDS: HYDROmorphone 2 MG/ML VIAL 0.5 MG IVP (09:46)
[2020-01-23] MEDS: Normal Saline 1,000 ML 1000 ML IV (09:46)
[2020-01-23 09:55] LABS: ALT 23 U/L (14-59); AST 22 U/L (15-37); Albumin 4.3 g/dL (3.4-5.0); Alkaline Phosphatase 80 U/L (46-116); Anion Gap 10.7 mmol/L (3-11); BUN 18 mg/dL (7-18); Bilirubin, Total 0.5 mg/dL (0.2-1.0); CO2 28.3 mmol/L (21.0-32.0); CREATININE 1.07 mg/dL (0.55-1.02); Calcium 9.7 mg/dL (8.5-10.1); Chloride 100 mmol/L (98-107); Estimated GFR 52.49 (mL/min/1.73m2); Glucose 143 mg/dL (74-106); Lipase 135 U/L (73-393); Potassium 3.4 mmol/L (3.5-5.1); Sodium 139 mmol/L (136-145); Total Protein 8.5 g/dL (6.4-8.2)
[2020-01-23 10:06] LABS: Bilirubin Negative (Negative); Blood Negative (Negative); Clarity Clear (Clear); Glucose Negative (Negative); Ketones 15 mg/dL (Negative); Leukocyte Esterase Trace (Negative); Nitrite Negative (Negative); Specific Gravity >= 1.030 (1.005-1.025); Urobilinogen 0.2 EU/dL (Up TO 0.2); pH 5.5 (5-8)
[2020-01-23 10:24] LABS: Bacteria Many HPF (Negative); C & S Indicated? No/Sq. Contamination; Casts Negative LPF (Negative); Crystals Negative HPF (Negative); Epithelial Cells Many HPF (Negative); Mucus Negative (Negative)
--- NOTE | 2020-01-23 11:30 | DI.CT_ITS ---
EXAM: CT CHEST/ABD/PEL W CLINICAL HISTORY: RUQ abdominal pain, hx of hiatal hernia TECHNIQUE: Imaging Protocol: Axial computed tomography images with coronal and sagittal reformatted images were created and reviewed CONTRAST MATERIAL: Intravenous: Omnipaque 350 Contrast volume:100 mL Oral: No COMPARISON: No exams were available for comparison FINDINGS: Patient motion artifact is present. CHEST: Tracheobronchial tree: Patent where visualized. Mediastinum and Angela: No dominant adenopathy or fluid collection. Pulmonary parenchyma: There is a 2 mm noncalcified pulmonary nodule in the posterolateral aspect of t he right upper lobe. There is scarring seen in the right lower lobe. No focal consolidating infiltr ate is present. Mild centrilobular emphysematous changes. Pleura: No effusion or pneumothorax. Heart: The heart is not dilated. Mild coronary artery calcification is present. No significant peric ardial effusion. Aorta: Atherosclerosis. Lymph nodes: Within normal limits. Bones:Degenerative changes are present in the thoracic spine. Fusion is seen in the lower cervical s pine. ABDOMEN: Liver: Normal density. No measurable mass. Mild hepatomegaly. Portal, Superior Mesenteric, and Splenic Veins: Unremarkable. Gallbladder and Biliary Tract: No radiodense calculus or dilation. Pancreas: Normal density, no abnormal calcifications or inflammatory process. Spleen: Normal. Adrenals: No masses seen. Kidneys: Normal size, contour and axis. No radiodense stones or obstructive uropathy. No masses seen. Abdominal Aorta: Abdominal portion non-dilated. Atherosclerosis. Bowel: No obstruction or bowel wall thickening. Appendix is unremarkable. Colonic diverticulosis but no evidence of acute diverticulitis. Peritoneal Cavity: No ascites, collection or mesenteric inflammatory response. Lymph Nodes: Within normal limits. Bones: Degenerative changes are present. Grade 1 pseudo spondylolisthesis of L5 on S1. Soft Tissues: Unremarkable. PELVIS: Bladder: Symmetric distention, no gross wall thickening. Reproductive Organs: Unremarkable as visualized. Lymph Nodes: Within normal limits. Bones: Please see above. IMPRESSION: 1. Mild hepatomegaly. 2. Colonic diverticulosis but no evidence of acute diverticulitis. 3. No acute abdominal or pelvic process. 4. 2 mm noncalcified right upper lobe pulmonary nodule. If there are known risk factors (example smo yuniel), follow-up CT scan in 12 months is recommended. 5. Centrilobular emphysema. 6. No acute pulmonary process. 7. These findings were discussed with the emergency department on the date of the examination. RADIATION DOSE DELIVERED: Total DLP DATA REPOSITORY: All CT scans at this facility are submitted to the National Radiology Data Registry (NRDR) Dose Index Registry (DIR) with the [employer] (A[employer]). RADIATION OPTIMIZATION: All CT scans at this facility use at least one of these dose optimization te chniques: automated exposure control; mA and/or kV adjustment per patient size (includes targeted exa ms where dose is matched to clinical indication); or iterative reconstruction.
[2020-01-23] MEDS: Omnipaque 350 MG/ML 100 ML BTL IJ (12:59)
== END 2020-01-23 13:48 | disposition home or self-care (01) ==
PROVIDERS: Emergency Provider Registered Nurse Emergency; PCP Family Medicine
DX: R10.11 Right upper quadrant pain (principal); R91.1 Solitary pulmonary nodule; R11.0 Nausea; I10 Essential (primary) hypertension; J44.9 Chronic obstructive pulmonary disease, unspecified; Z87.891 Personal history of nicotine dependence
CPT/HCPCS: 36415; 74177; 76770; 80053; 83690; 96361; 96374; 96375; 99285; 71260; 76700; 81003; 81015; 83735; 85025; 99284; J2405; J3490

== ENCOUNTER 2020-03-09 18:33 | Emergency (ER) | payer OTHER, SELFPAY ==
[2020-03-09 18:37] VITALS: BP 148/92; PULSE 100; RESP 18; TEMP 36.7; O2SAT 94
--- NOTE | 2020-03-09 18:42 | ED.GENADUL_ITS ---
Discharge Plan Disposition Patient Disposition: HOME Condition: Stable Discharge Details Chief Complaint: Cellulitis Clinical Impression: Leg wound, left, Cellulitis of leg, left Primary Care Provider: Kourtney Chahal ED Provider: Delaney Powell Home Meds and New Rx's Prescriptions: New clindamycin HCl 150 mg capsule 450 mg PO TID 7 Days Qty: 63 RF: 0 Continued albuterol sulfate 90 mcg/actuation HFA aerosol inhaler 2 puff IH QID PRN (Reason: bronchospasm) RF: 0 trazodone 150 mg tablet 150 mg PO HS PRN (Reason: insomnia) Qty: 90 RF: 4 lorazepam 0.5 mg tablet 0.5 mg PO BID PRN (Reason: anxiety) Qty: 45 RF: 3 ibuprofen 600 mg tablet 600 mg PO TID Qty: 30 RF: 0 Discharge Instructions Instructions: Cellulitis (ED), Acute Wound Care (ED) Additional Instructions: Keep wound clean and dry. Cover wound with bandage if risk of contamination. Otherwise you can keep the wound open to air if resting at home to allow edges to dry and heal. Apply the topical antibiotic ointment as directed. If you have no relief or worsening of symptoms in the next 24 hours, start the oral antibiotics. Follow-up with your primary care doctor in 1 week. Return to the emergency department with any worsening or new concerning symptoms. Discharge Data Discharge Date/Time-TO BE ENTERED AT DEPARTURE: 03/09/20 19:20 Discharge Physician: Delaney Powell Medical Decision Making 59-year-old female presents with left leg wound sustained on a stick 3 days ago now with worsening redness, pain and swelling. She appears nontoxic. There is a 3 x 1 cm open wound with surrounding cellulitis to the left lower leg. No evidence of abscess. She is neurovascular intact. We will treat with mupirocin. Also give prescription for clindamycin if symptoms do not improve or worsen. She has a history of allergy to penicillin which causes rash and declines Keflex. Advised to follow up with the primary care doctor for re-evaluation. Usual and customary return precautions given prior to discharge. Medical Records Medical records reviewed: Yes I reviewed the patient's medical records. HPI General Mode of arrival: ambulatory . Date/Time Provider Initiated Documentation: 03/09/20 18:33 . Limitations to Documentation: no limitations . Information obtained by: patient . HPI Narrative: Patient is a 59-year-old female presents with left leg wound for the past 3 days after caught on a stick while outside. She has noticed increased pain, redness and swelling to the area and is concerned about infection. She denies any fever. She has been washing the area with soap and water and applying Neosporin and bag balm. Tetanus up-to-date. Related Data Home Medications Medication Instructions Recorded Confirmed trazodone 150 mg tablet 150 mg PO HS PRN #90 tab 01/29/19 03/09/20 albuterol sulfate 90 mcg/actuation 2 puff IH QID PRN gm 07/31/19 03/09/20 aerosol inhaler ibuprofen 600 mg PO TID #30 tab 09/17/19 03/09/20 lorazepam 0.5 mg tablet 0.5 mg PO BID PRN #45 tab 10/11/19 03/09/20 clindamycin HCl 450 mg PO TID 7 Days #63 cap 03/09/20 Previous Rx's Medication Instructions Recorded trazodone 150 mg tablet 150 mg PO HS PRN #90 tab 01/29/19 ibuprofen 600 mg PO TID #30 tab 09/17/19 lorazepam 0.5 mg tablet 0.5 mg PO BID PRN #45 tab 10/11/19 clindamycin HCl 450 mg PO TID 7 Days #63 cap 03/09/20 Allergies Allergy/AdvReac Type Severity Reaction Status Date / Time Penicillins Allergy Severe SKIN RASH Unverified 03/09/20 18:41 oxycodone AdvReac Mild NAUSEA Unverified 03/09/20 18:41 General Stated Complaint: Cellulitis JACK: 3 Review of Systems All systems reviewed & are unremarkable except as noted in HPI and below Constitutional Constitutional: Reports as per HPI, Denies chills and Denies fever(s) Eyes Eyes: Denies blurry vision ENT Ears, Nose, Mouth, and Throat: Denies dizziness, Denies sore throat and Denies throat swelling Cardiovascular Cardiovascular: Denies chest pain and Denies dyspnea Respiratory Respiratory: Denies cough and Denies dyspnea Gastrointestinal Gastrointestinal: Denies abdominal pain, Denies diarrhea and Denies vomiting Genitourinary Genitourinary: Denies hematuria and Denies dysuria Musculoskeletal Musculoskeletal: Denies back pain and Denies numbness Integumentary/Breasts Skin/Breast: Reports lesions and Denies rash Neurologic Neurologic: Denies dizziness, Denies localized weakness and Denies numbness Allergic/Immunologic Allergic/Immunologic: Denies throat swelling [facility] Medical History (Updated 03/09/20 @ 19:07 by Delaney Powell DO) Anxiety (Chronic 12/26/12) 11/24/17/ SYBIL 7 SCORE=20 Chronic pain (Chronic 02/28/15) Colorectal polyps (Inactive) Depressive disorder (Chronic 11/22/12) Diverticula of colon (Chronic) Diverticulosis (Acute) Essential hypertension (Chronic) Headache (Chronic 04/25/13) HEAD CT 2005 NORMAL History of drug abuse (Resolved) 11/22/12 h/o heroin, rehab [employer] [facility];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 2016:27 years sober! Insomnia (Chronic 06/14/16) Keratoacanthoma of chin (Resolved) 12/08/15 right chin Lipoma of axilla (Resolved) 07/28/15 left. removed 05/08 Memory impairment of gradual onset (Acute) Neck pain (Chronic 01/10/15) surgery March,, repeat with titanium plates and cadaver grafts 06/11/15 Polycythemia (Chronic 03/15/16) Pulmonary hypertension (Chronic 12/22/17) Right hand pain (Resolved) 08/17/17 Shortness of breath (Inactive) Speech disturbance (Chronic 07/28/15) Spondylolisthesis at L5-S1 level (Chronic 04/25/13) MRI, LUMBAR 2000: GRADE 1 2 LB surgeries with fusing Unspecified injury of head, sequela (Resolved) 07/28/15 continue post-concussive headaches Unspecified injury of right shoulder and upper arm, subsequent encounter (Resolved) 06/14/17 Surgical History AXILLARY MASS BX cervical fusion 03/2014 C5-6 fusion Teresita Vallejo ; 06/11/15 H/O reduction mammoplasty (Resolved) H/O skin graft (Resolved) for lumbar fusion (scars B/L flanks/buttocks H/O spinal fusion (Resolved) 07/25/99 L5-S1 History of bilateral tubal ligation (Resolved) LIVER BX S/P bunionectomy (Resolved) B/L S/P colonoscopy (Acute ~06/11/19) Hyperplastic polyps x2. Tubular adenoma x2. Sessile serrated adenoma x1. SKIN GRAFT FOR LUMBAR FUSION (SCARS B/L FLANKS/BUTTOCKS) Status post cervical spinal arthrodesis (Inactive) Family History Mother , at age 74. Asthma Father , AGE 74 Hip fracture Alcohol abuse CAD (coronary artery disease) Alzheimer disease Heart disease Sister Heart disease Alzheimer disease Brother , AGE 70 Alcohol abuse Heart disease Hyperlipidemia Mental disorder Stroke Brother , AGE 58 CAD (coronary artery disease) Stroke Depression Brother , AGE 55 Alcohol abuse CAD (coronary artery disease) FAMILY HISTORY Essential hypertension Hyperlipidemia Sister Diabetes Hyperlipidemia Sister No problems noted. Sister Asthma Sister Asthma Brother Depression Daughter Depression Daughter Depression Asthma Social History Smoking/Tobacco Use Status: Former Tobacco Use Quit Date: 07/25/10 Tobacco: How many years used: 30 Alcohol Intake: former Drug use: Occasionally Substance use type: former substance user Date of last use: LAST TIME , marijuana, crack/cocaine, heroin, opiates and painkillers Details: She consumes marijuana edibles. t-1, edibles Caregiver/Support person: No Household members: spouse Housing: house Do you need help understanding health information?: Never Pets and animals: Yes Pets and animals: cat(s) Sexually active: No Do you think of yourself as: straight/heterosexual Current gender identity: female What is your relationship status?: How often do you talk on the phone with friends or family?: three or more times per week How often do you get together with friends or relatives?: twice per week How often do you attend scientologist or presybeterian services?: 1-3 times per year Do you belong to any clubs or organized social groups?: no Panel score (0-1 are the most socially isolated patients): 2 What type of physical activity do you participate in: swimming Duration: 60-90 minutes/day Frequency: 5-6 times per week Lisa/Taoism: Rastafarian Special lisa needs: No Seatbelt use: always Drive 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 Do you feel safe at home: Yes Do you feel safe in your relationship?: Yes Exam Const General: cooperative and healthy appearing Orientation: alert and awake [facility] Head: normal to inspection Ears: hearing grossly normal bilaterally and external ears normal General nose exam: external nose normal Face and sinus: normal facial exam Eyes General: appearance normal, both eyes and all related structures Neck Neck: normal visual inspection Lymphatic: no lymphadenopathy noted Chest Chest: normal inspection of the chest Resp Effort & Inspection: normal respiratory effort and able to speak in complete sentences Cardio Rate: regular rate Skin General skin exam: no rashes or lesions noted Neuro General: patient alert and patient awake Cognition: normal cognition Speech: speech normal Gait: normal gait Motor: muscle tone normal throughout Sensory Exam: no sensory deficits noted Extrem General: full ROM and capillary refill normal Ankle/foot/toe images: 1. [id number] open wound with 1 cm of surrounding erythema, edema and tenderness to left anterior distal leg. There is no fluctuance, drainage or bleeding. No crepitus. Psych Appearance: grossly normal Mental Status: mental status grossly normal Speech and Movement: speech and movement normal Affect: normal affect Thought Process: normal Course Vital Signs Vital signs: Vital Signs Temperature 98.1 F 03/09/20 18:37 Pulse 100 H 03/09/20 18:37 Respiratory Rate 18 03/09/20 18:37 Blood Pressure 148/92 H 03/09/20 18:37 Pulse Oximetry 94 L 03/09/20 18:37 Temperature 98.1 F 03/09/20 18:37 Temperature Source Skin 03/09/20 18:37 Pulse 100 H 03/09/20 18:37 Respiratory Rate 18 03/09/20 18:37 Respiratory Effort Non-Labored 03/09/20 18:39 Blood Pressure 148/92 H 03/09/20 18:37 Blood Pressure Position Sitting 03/09/20 18:37 Pulse Oximetry 94 L 03/09/20 18:37 Oxygen Delivery Method Room Air 03/09/20 18:37 Oxygen Flow Rate 0 03/09/20 18:37 Pain Level 7 03/09/20 18:37
== END 2020-03-09 19:20 | disposition home or self-care (01) ==
PROVIDERS: Emergency Provider Physician Assistant; PCP Family Medicine
DX: L03.116 Cellulitis of left lower limb (principal); S81.832A Puncture wound without foreign body, left lower leg, initial encounter; W26.8XXA Contact with other sharp object(s), not elsewhere classified, initial encounter; I10 Essential (primary) hypertension
CPT/HCPCS: 99283

== ENCOUNTER 2020-03-17 12:26 | Emergency (ER) | payer OTHER, SELFPAY ==
[2020-03-17 12:40] VITALS: BP 196/98; PULSE 116; RESP 18; TEMP 37.2; O2SAT 93
--- NOTE | 2020-03-17 13:40 | ED.GENADUL_ITS ---
Discharge Plan Disposition Patient Disposition: OTHER Discharge Details Chief Complaint: Cellulitis Clinical Impression: Rash Primary Care Provider: Kourtney Chahal ED Provider: Redd Canchola Home Meds and New Rx's Prescriptions: Continued albuterol sulfate 90 mcg/actuation HFA aerosol inhaler 2 puff IH QID PRN (Reason: bronchospasm) RF: 0 prednisone 20 mg tablet 40 mg PO DAILY Qty: 10 RF: 0 trazodone 150 mg tablet 150 mg PO HS PRN (Reason: insomnia) Qty: 90 RF: 4 ibuprofen 600 mg tablet 600 mg PO TID Qty: 30 RF: 0 No Action lorazepam 0.5 mg tablet 0.5 mg PO BID PRN (Reason: anxiety) Qty: 45 RF: 3 Discharge Instructions Additional Instructions: Patient eloped Discharge Data Discharge Date/Time-TO BE ENTERED AT DEPARTURE: 03/17/20 13:19 Medical Decision Making <MADELEINE Mcguire - Last Filed: 03/18/20 08:21> 59-year-old female presents for a right lower extremity painful rash. As described in the HPI the area is with ecchymosis, papule, no petechiae, non- blanchable. Clinically it appears more traumatic in nature but she denies any trauma. Given the 10 at a 10 pain, burning sensation, certainly cannot rule out shingles but this is not a typical shingles rash. We did asked Dr. Aguiar to personally evaluate the patient given the presentation of the rash. He evaluated the patient, please see his note. Plan was to obtain CBC, CMP, evaluate white count, platelet count, liver function. Will provide oral Tylenol, Motrin, antiviral for potential shingles. Patient did request so mething stronger for her discomfort. We will had a discussion that we did not feel as though narcotic analgesia was warranted in this case and we would initiate the Tylenol, Motrin, antiviral. I was told by the patient's RN that she was requesting to speak with me. I went in the room and she told me that she did not want to speak with me and instead wanted to speak with Dr. Aguiar. I made Dr. Aguiar aware of this, he went back into the room to speak with the patient, please see his note. Shortly after it appeared as though the patient had eloped. Laboratory values were not obtained, medications were not given. Medical Records Medical records reviewed: Yes I reviewed the patient's medical records. <Guerrero Aguiar MD - Last Filed: 03/22/20 08:49> Patient seen, examined, and discussed with MADELEINE Canchola. I was asked to see the patient by MADELEINE Canchola. I spoke with her and confirmed HPI is obtained by MADELEINE Canchola. I examined her right lower extremity and noted focal ecchymotic lesions anterior lockett with some small area of excoriation and some slightly raised papules. No fluctuance or induration. No significant erythema. Given atraumatic injury and description of pain, I am most concerned about herpes zoster. Consider other etiologies. Plan to check labs including complete metabolic panel to assess liver function and CBC to assess platelets. Plan to treat pain with high-dose ibuprofen and acetaminophen as well as start antiviral. Patient inquired about stronger analgesic. I explained that opioid analgesic would not be indicated at this time and that we should try the ibuprofen/acetaminophen combination to start. Patient seemed initially agreeab le with this plan. I was then notified by MADELEINE Canchola that patient refused analgesic treatment from nursing and noted that she was upset with treatment plan. I went to discuss her concerns and she informed that she was upset with my communication about treatment plan. I did feel that there was miscommunication as I did not intend to imply drug-seeking behavior - I attempted to apologize for her experience and discuss her concerns and but she demanded to leave immediately. She immediately got up and walked out of the emergency department threatening to contact her PCP to file a complaint. P atient ambulated without dysfunction from the emergency department. I agree with treatment plan as discussed/documented. HPI <MADELEINE Mcguire - Last Filed: 03/18/20 08:21> General Mode of arrival: ambulatory . Date/Time Provider Initiated Documentation: 03/17/20 12:43 . Limitations to Documentation: no limitations . Information obtained by: patient . HPI Narrative: This is a 59-year-old female with history of COPD, chronic pain, anxiety, hypertension, presenting to the ER for a right lower leg rash-pain that began yesterday. She denies any trauma whatsoever. No known environmental exposure. She reports that the pain is severe, 10 out of 10, constant, burning, and feels like a blade cutting her skin. She recently finished antibiotics for left lower leg cellulitis which she reports has healed completely. She denies rash elsewhere on her body. She denies fever, numbness, tingling, weakness, chest pain, shortness of breath, abdominal pain. She denies any joint pain. She has never had a rash like this. Denies easy bruising or bleeding. Related Data Home Medications Medication Instructions Recorded Confirmed trazodone 150 mg tablet 150 mg PO HS PRN #90 tab 01/29/19 03/17/20 albuterol sulfate 90 mcg/actuation 2 puff IH QID PRN gm 07/31/19 03/17/20 aerosol inhaler ibuprofen 600 mg PO TID #30 tab 09/17/19 03/17/20 prednisone 20 mg tablet 40 mg PO DAILY #10 tab 03/17/20 03/17/20 lorazepam 0.5 mg tablet 0.5 mg PO BID PRN #45 tab 03/20/20 Previous Rx's Medication Instructions Recorded trazodone 150 mg tablet 150 mg PO HS PRN #90 tab 01/29/19 ibuprofen 600 mg PO TID #30 tab 09/17/19 prednisone 20 mg tablet 40 mg PO DAILY #10 tab 03/17/20 lorazepam 0.5 mg tablet 0.5 mg PO BID PRN #45 tab 03/20/20 Allergies Allergy/AdvReac Type Severity Reaction Status Date / Time Penicillins Allergy Severe SKIN RASH Unverified 03/17/20 14:03 oxycodone AdvReac Mild NAUSEA Unverified 03/17/20 14:03 General Stated Complaint: Cellulitis JACK: 3 Review of Systems <MADELEINE Mcguire - Last Filed: 03/18/20 08:21> Constitutional Constitutional: Denies fever(s) and Denies weakness Cardiovascular Cardiovascular: Denies chest pain and Denies dyspnea Respiratory Respiratory: Denies dyspnea Gastrointestinal Gastrointestinal: Denies abdominal pain, Denies nausea and Denies vomiting Musculoskeletal Musculoskeletal: Denies joint swelling, Denies numbness and Denies tingling Integumentary/Breasts Skin/Breast: Reports rash Neurologic Neurologic: Denies numbness, Denies tingling and Denies weakness Hematologic/Lymphatic Hematologic/Lymphatic: Denies easy bleeding and Denies easy bruising [facility] <MADELEINE Mcguire - Last Filed: 03/18/20 08:21> Medical History Anxiety (Chronic 12/26/12) 11/24/17/ SYBIL 7 SCORE=20 Chronic pain (Chronic 02/28/15) Colorectal polyps (Inactive) Depressive disorder (Chronic 11/22/12) Diverticula of colon (Chronic) Diverticulosis (Acute) Essential hypertension (Chronic) Headache (Chronic 04/25/13) HEAD CT 2005 NORMAL History of drug abuse (Resolved) 11/22/12 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 2016:27 years sober! Insomnia (Chronic 06/14/16) Keratoacanthoma of chin (Resolved) 12/08/15 right chin Lipoma of axilla (Resolved) 07/28/15 left. removed 05/08 Memory impairment of gradual onset (Acute) Neck pain (Chronic 01/10/15) surgery March,, repeat with titanium plates and cadaver grafts 06/11/15 Polycythemia (Chronic 03/15/16) Pulmonary hypertension (Chronic 12/22/17) Right hand pain (Resolved) 08/17/17 Shortness of breath (Inactive) Speech disturbance (Chronic 07/28/15) Spondylolisthesis at L5-S1 level (Chronic 04/25/13) MRI, LUMBAR 2000: GRADE 1 2 LB surgeries with fusing Unspecified injury of head, sequela (Resolved) 07/28/15 continue post-concussive headaches Unspecified injury of right shoulder and upper arm, subsequent encounter (Resolved) 06/14/17 Surgical History AXILLARY MASS BX cervical fusion 03/2014 C5-6 fusion Teresita Vallejo ; 06/11/15 H/O reduction mammoplasty (Resolved) H/O skin graft (Resolved) for lumbar fusion (scars B/L flanks/buttocks H/O spinal fusion (Resolved) 07/25/99 L5-S1 History of bilateral tubal ligation (Resolved) LIVER BX S/P bunionectomy (Resolved) B/L S/P colonoscopy (Acute ~06/11/19) Hyperplastic polyps x2. Tubular adenoma x2. Sessile serrated adenoma x1. SKIN GRAFT FOR LUMBAR FUSION (SCARS B/L FLANKS/BUTTOCKS) Status post cervical spinal arthrodesis (Inactive) Family History Mother , at age 74. Asthma Father , AGE 74 Hip fracture Alcohol abuse CAD (coronary artery disease) Alzheimer disease Heart disease Sister Heart disease Alzheimer disease Brother , AGE 70 Alcohol abuse Heart disease Hyperlipidemia Mental disorder Stroke Brother , AGE 58 CAD (coronary artery disease) Stroke Depression Brother , AGE 55 Alcohol abuse CAD (coronary artery disease) FAMILY HISTORY Essential hypertension Hyperlipidemia Sister Diabetes Hyperlipidemia Sister No problems noted. Sister Asthma Sister Asthma Brother Depression Daughter Depression Daughter Depression Asthma Social History Smoking/Tobacco Use Status: Former Tobacco Use Quit Date: 07/25/10 Tobacco: How many years used: 30 Alcohol Intake: former Drug use: Occasionally Substance use type: former substance user Date of last use: LAST TIME , marijuana, crack/cocaine, heroin, opiates and painkillers Details: She consumes marijuana edibles. t-1, edibles Caregiver/Support person: No Household members: spouse Housing: house Do you need help understanding health information?: Never Pets and animals: Yes Pets and animals: cat(s) Sexually active: No Do you think of yourself as: straight/heterosexual Current gender identity: female What is your relationship status?: How often do you talk on the phone with friends or family?: three or more times per week How often do you get together with friends or relatives?: twice per week How often do you attend mandaen or sabianist services?: 1-3 times per year Do you belong to any clubs or organized social groups?: no Panel score (0-1 are the most socially isolated patients): 2 What type of physical activity do you participate in: swimming Duration: 60-90 minutes/day Frequency: 5-6 times per week Lisa/Islam: Jehovah'S Witness Special lisa needs: No Seatbelt use: always 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 Do you feel safe at home: Yes Do you feel safe in your relationship?: Yes Exam <MADELEINE Mcguire - Last Filed: 03/18/20 08:21> Const General: cooperative, healthy appearing, comfortable and no acute distress Orientation: alert and awake HENCA Head: normal to inspection, normocephalic and atraumatic Face and sinus: normal facial exam Mouth: moist mucous membranes Eyes Conjunctivae: conjunctivae normal Sclera: sclerae normal Neck Neck: normal visual inspection, full ROM, trachea midline and supple Resp Effort & Inspection: normal respiratory effort and able to speak in complete sentences Auscultation: clear to auscultation bilaterally Cardio Rate: tachycardic (108) Rhythm: regular rhythm GI Inspection: normal to inspection Back/Spine/Pelvis Back: No back tenderness and other (Normal to inspection) Skin General skin exam: no rashes or lesions noted Neuro General: patient alert, patient awake, patient oriented x3, moves all extremities and no focal motor deficits Cognition: normal cognition Speech: speech normal Gait: normal gait Sensory Exam: no sensory deficits noted Psych Appearance: grossly normal Mental Status: mental status grossly normal Course <MADELEINE Mcguire - Last Filed: 03/18/20 08:21> Vital Signs Vital signs: Vital Signs Temperature 37.2 C 03/17/20 12:40 Pulse 116 H 03/17/20 12:40 Respiratory Rate 18 03/17/20 12:40 Blood Pressure 196/98 H 03/17/20 12:40 Pulse Oximetry 93 L 03/17/20 12:40 Temperature 37.2 C 03/17/20 12:40 Pulse 116 H 03/17/20 12:40 Respiratory Rate 18 03/17/20 12:40 Respiratory Effort Non-Labored 03/17/20 12:45 Blood Pressure 196/98 H 03/17/20 12:40 Pulse Oximetry 93 L 03/17/20 12:40 Oxygen Delivery Method Room Air 03/17/20 12:40 Oxygen Flow Rate 0 03/17/20 12:40 Pain Level 10 03/17/20 12:40
== END 2020-03-17 13:19 | disposition other institution (70) ==
PROVIDERS: Emergency Provider Physician Assistant; PCP Family Medicine
DX: R21 Rash and other nonspecific skin eruption (principal); Z53.29 Procedure and treatment not carried out because of patient's decision for other reasons; I10 Essential (primary) hypertension; J44.9 Chronic obstructive pulmonary disease, unspecified
CPT/HCPCS: 80053; 99281; 85025

== ENCOUNTER 2020-03-17 21:38 | Outpatient (REF) | payer OTHER, SELFPAY ==
[2020-03-17 21:12] LABS: Abs Immature Grans 0.02 10^3/uL (0.0-0.06); Absolute Lymphocyte Count 3.23 10^3/uL (1.2-3.4); Absolute Monocyte Count 0.71 10^3/uL (0.1-0.8); Absolute Neutrophil Count 5.57 10^3/uL (1.2-6.7); HGB 14.7 g/dL (11.2-15.7); Immature Grans % 0.2; Lymphocytes % 33.2; MCH 30.9 pg (27.0-33.0); MCHC 33.4 % (32.0-36.0); MCV 92.6 fL (80-95); Monocytes % 7.3; Neutrophils % 57.3; Nucleated RBC 0 %; Platelet Count 325 10^3/uL (130-400); RBC 4.75 10^6/uL (3.93-5.22); RDW 12.4 % (11.7-14.6); RDW-SD 42.4 fL; WBC 9.73 10^3/uL (4.4-10.8)
== END 2020-03-17 21:58 ==
LOC: LBN 21:38
PROVIDERS: PCP Family Medicine; Visit Provider Nurse Practitioner Family
DX: L30.8 Other specified dermatitis (principal)
CPT/HCPCS: 85025

== ENCOUNTER 2020-08-29 01:58 | Outpatient (CLI) | payer OTHER, SELFPAY ==
[2020-08-30 11:29] LABS: COVID-19 RT-PCR UVMMC Result Negative (Negative)
== END 2020-08-29 01:59 | disposition home or self-care (01) ==
LOC: LBO 01:58
PROVIDERS: PCP Family Medicine; Visit Provider Student in an Organized Health Care Education/Training Program
DX: Z20.828 Contact with and (suspected) exposure to other viral communicable diseases (principal); Z01.818 Encounter for other preprocedural examination
CPT/HCPCS: U0003

== ENCOUNTER 2020-09-02 11:40 | Day surgery (SDC) | payer OTHER, SELFPAY ==
--- NOTE | 2020-09-02 07:47 | PDOC.DSDIS_ITS ---
Discharge Plan Disposition Patient Disposition: HOME Condition: Good Discharge Details Reason For Visit: Left Plantar Fascia Fibromatosis Attending Provider: Galen Lane Primary Care Provider: Kourtney Chahal Home Meds and New Rx's Prescriptions: New hydrocodone-acetaminophen 5-325 mg tablet 1 tab PO Q8H PRN PRN (Reason: pain) Qty: 6 RF: 0 acetaminophen 500 mg tablet 500 mg PO Q6H PRN PRN (Reason: pain) Qty: 40 RF: 3 Continued lorazepam 0.5 mg tablet 0.5 mg PO BID PRN (Reason: anxiety) Qty: 60 RF: 3 trazodone 150 mg tablet 150 mg PO HS PRN (Reason: insomnia) Qty: 90 RF: 4 albuterol sulfate 90 mcg/actuation HFA aerosol inhaler 2 puff IH QID PRN (Reason: bronchospasm) RF: 0 ibuprofen 600 mg tablet 600 mg PO TID Qty: 60 RF: 1 Discharge Instructions Additional Instructions: Activity: You may weight bear as tolerated with the post-op shoe and mostly through your heel. You may use crutches for support to offload the foot as necessary for the first 2 weeiks. You should keep the leg elevated as much as possible. You may wiggle your toes and move your hip and knee. You may remove the post-op shoe when not ambulating. You can apply ice to the sole of your foot for pain relief. Dressings: You should keep the initial dressing on for at least 3 days. After 3 days, you may remove it and get it wet in the shower. You should keep it covered with a light gauze dressing or wrap until follow-up. Medications: - You should take Tylenol and Ibuprofen around the clock for baseline pain. - You have been prescribed a stronger narcotic, Hydrocodone, for breakthrough pain. Follow-up: 2 weeks Referrals: Galen Lane MD [ [facility] STAFF PHYSICIAN] - Equipment/Supplies: Partial Weight Bearing Crutches Activity:: Elevate Remove Dressings/Wound Care:: 72 hours Shower/Bathe:: 72 hours Diet:: As Tolerated Discharge Orders Discharge Orders: Discharge Order (Routine); Ordered 09/02/20 Ordered By: Galen Lane DS: Diagnosis Discharge Diagnosis (1) Plantar fascial fibromatosis of left foot: Status: Acute
[2020-09-02 12:08] VITALS: BP 147/97; PULSE 91; RESP 12; TEMP 36.1; O2SAT 94
[2020-09-02] MEDS: Lactated Ringers 1,000 ML 80 ML IV (12:46)
[2020-09-02] MEDS: ceFAZolin 2 GM/50 ML BAG IVPB (13:34)
[2020-09-02] MEDS: Sodium Bicarbonate 50 MEQ/50 ML VIAL (13:50)
[2020-09-02] MEDS: Bupivacaine 0.25% Pres-Free 10 ML VIAL (13:50)
[2020-09-02] MEDS: HYDROcodone 5/Acetaminophen 325 TAB PO (14:40)
--- NOTE | 2020-09-02 14:48 | W.PM.OP ---
Date of service: 09/02/20 Time of Service: 14:13 Operative Note Operative Note DATE OF PROCEDURE: 09/02/20 PRE-OP DIAGNOSIS: Left Plantar Fibroma POST-OP DIAGNOSIS: same PROCEDURE: Left Plantar Fasciectomy SURGEON: Galen Lane ANESTHESIA: MAC ESTIMATED BLOOD LOSS: 0 PATHOLOGY: none sent TOURNIQUET TIME: 0 COMPLICATIONS: None Patient was transported to: same day Patient's condition: stable Indications: Edith is an active 60-year-old who has had worsening pain and prominence of her left plantar fascia. She was diagnosed with a plantar fascial fibroma. She had tried conservative measures but continued to have pain and dysfunction. Therefore, I offered plantar fasciectomy with removal of the fibroma. I discussed the risk of the procedure to include bleeding, infection, pain, recurrence, damage to nerves and vessels, painful scar, need for repeat procedures. Despite these risks, she elected to proceed. Findings: There is a fibroma, thickened plantar fascial tissue, seen over the medial half of the plantar fascia which was excised. Procedure Description: Edith was greeted in the preoperative holding area. Her identity was confirmed the correct site was identified and marked. The consent was reviewed the patient and signed. History and physical was updated. Edith was taken back to the operating room. She was placed in the supine position. The leg was externally rotated and placed on top of a bone foam ramp for exposure. Left foot was prepped with ChloraPrep and draped in a standard fashion. Prophylactic antibiotics in the form of cefazolin were given. A timeout was performed for safe surgery. A MAC anesthetic was administered. The proposed surgical site overlying the medial aspect of the fibroma was then anesthetized with 5 cc of 1% lidocaine with epinephrine. An incision was then made longitudinally, approximately 3 cm long over the medial border of the plantar fascia at the level of the fibroma. This was taken down sharply through the skin and the medial edge of the plantar fascia was identified. Using a tenotomy scissor is able to resect attachments from the plantar fascia and the obtains tissue. The fibroma was easily palpable. It involved the least half of the plantar fascia. I then bluntly dissected off the deeper layer of the plantar fascia with a [place] so I had excellent visualization of both sides of the plantar fascia. The full extent of the fibroma was identified. I then used a knife cutting against the [place] to resect the plantar fascia including the fibroma. This resection was approximately 1 x 1 cm, leaving behind some lateral portions of the plantar fascia. The wounds and thoroughly irrigated. The deep tissues and subcutaneous tissues were then injected with 0.5% ropivacaine. The deeper tissue was reapproximated with a 3-0 Vicryl and the skin was closed with a 4-0 Monocryl in a running subcuticular fashion. Skin glue was applied. The wound was dressed with 4 x 4's, Kerlix, Jason wrap. Edith tolerated the procedure well. She was taken to the same-day surgery in stable condition. She will have a postop shoe for immobilization but I encouraged her to weight-bear through the heel and use crutches for the first few days.
[2020-09-02 14:55] VITALS: BP 140/82; PULSE 74; RESP 16; TEMP 35.9; O2SAT 98
== END 2020-09-02 15:30 | disposition home or self-care (01) ==
LOC: SUR 11:40
PROVIDERS: PCP Family Medicine; Visit Provider Student in an Organized Health Care Education/Training Program
PROC: (CPT 28060; principal; 2020-09-02 13:15)
DX: M72.2 Plantar fascial fibromatosis (principal)
CPT/HCPCS: 28060; J0690; J1885; J2001; J2250; J2405

== ENCOUNTER 2020-10-13 15:45 | Outpatient (CLI) | payer OTHER, SELFPAY ==
--- NOTE | 2020-10-13 15:00 | DI.RAD_ITS ---
EXAM: XR FOOT RT COMPLETE CLINICAL HISTORY: pain about surgical site. TECHNIQUE: 2D digital imaging was performed. COMPARISON: No exams were available for comparison FINDINGS: There is no evidence of acute fracture nor diastasis of the Lisfranc joint. There is a healed fractu re or osteotomy site at the junction of the diaphysis and neck of the great toe metatarsal. This wir e exhibits a discontinuity. However, it does there is no evidence of abnormal lucency around this ar ea. No osteomyelitis. No erosions at this level nor elsewhere in the foot. Accessory ossicle is no hola lateral to the cuboid bone. Incidentally noted is density at the anterior ankle joint level partially included in the field of vi ew, difficult to assess without ankle films. If clinically indicated additional ankle films can be p erformed. IMPRESSION: DATA REPOSITORY: RADIATION DOSE DELIVERED:
--- NOTE | 2020-10-13 15:15 | DI.RAD_ITS ---
EXAM: XR PELVIS AP CLINICAL HISTORY: pain. TECHNIQUE: 2D digital imaging was performed. COMPARISON: CR XR HIP SINGLE W PELVIS from 06/25/2020 FINDINGS: There is no evidence of pelvic nor hip fracture. Visualized SI joints appear unremarkable as does th e symphysis pubis. No obvious degenerative changes in the hips. No osseous lesions. Umbilical antwan ment again noted IMPRESSION: DATA REPOSITORY: RADIATION DOSE DELIVERED:
== END 2020-10-13 15:46 | disposition home or self-care (01) ==
LOC: DIORS 15:45
PROVIDERS: PCP Family Medicine; Referring Provider Family Medicine; Visit Provider Physician Assistant Surgical
DX: M79.671 Pain in right foot (principal); R10.2 Pelvic and perineal pain
CPT/HCPCS: 72170; 73630

== ENCOUNTER 2021-01-02 04:05 | Outpatient (CLI) | payer OTHER, SELFPAY ==
[2021-01-02 09:19] LABS: HCT 45.3 % (36.0-46.0); HGB 14.8 g/dL (11.2-15.7); MCH 31.3 pg (27.0-33.0); MCHC 32.7 % (32.0-36.0); MCV 95.8 fL (80-95); MPV 9.1 fL (8.0-11.0); Platelet Count 324 10^3/uL (130-400); RBC 4.73 10^6/uL (3.93-5.22); RDW 12.4 % (11.7-14.6); RDW-SD 43.7 fL; WBC 8.97 10^3/uL (4.4-10.8)
[2021-01-02 11:13] LABS: ALT 26 U/L (14-59); AST 23 U/L (15-37); Albumin 4.2 g/dL (3.4-5.0); Alkaline Phosphatase 89 U/L (46-116); Anion Gap 5.4 mmol/L (3-11); BUN 15 mg/dL (7-18); Bilirubin, Total 0.5 mg/dL (0.2-1.0); CO2 32.6 mmol/L (21.0-32.0); CREATININE 0.9 mg/dL (0.55-1.02); Calcium 10.1 mg/dL (8.5-10.1); Chloride 105 mmol/L (98-107); Glucose 101 mg/dL (74-106); Potassium 4.8 mmol/L (3.5-5.1); Sodium 143 mmol/L (136-145); Total Protein 7.7 g/dL (6.4-8.2)
== END 2021-01-02 04:06 | disposition home or self-care (01) ==
LOC: LBO 04:05
PROVIDERS: PCP Family Medicine; Visit Provider Family Medicine
DX: I10 Essential (primary) hypertension; D75.1 Secondary polycythemia
CPT/HCPCS: 36415; 80053; 85027

== ENCOUNTER 2021-01-21 01:57 | Outpatient (CLI) | payer OTHER, SELFPAY ==
--- NOTE | 2021-01-21 07:00 | DI.MAMMO_ITS ---
Exam(s) MAMMO SCREENING EXAM: MAMMO SCREENING CLINICAL HISTORY: screening, Z12.39. TECHNIQUE: Bilateral full field digital CC and MLO mammographic images were obtained with 3D tomosyn thesis and utilizing computer aided detection (CAD). COMPARISON: Prior mammograms dating back to 2012, the most recent being March 2019. FINDINGS: Asymmetric densities in both breasts are unchanged from prior studies. However, in the left breast there is a nodular density measuring approximately 8 x 7 millimeters and located approximately 5 cm in from the nipple on the MLO view. More evident than on prior studies. No malignant-appearing microcalcification groups is region or elsewhere in either breast There is no significant architectural distortion nor skin thickening-retraction. IMPRESSION: 8 x 7 millimeter asymmetric density-possible nodule in the left breast as described above. Spot comp ression views and ultrasound recommended. BI-RADS Category 0 - Assessment Incomplete: Need additional imaging evaluation Breast Density - Category C - Heterogeneously dense Breast density Category C or D implies that the patient has dense breast tissue. Dense breast tissue can make it harder to find cancer on a mammogram. Dense breast tissue is also associated with an incr eased risk of breast cancer. This information about the result of the mammogram report was provided to the patient to raise their awareness. Use this report when you speak with the patient about their risks for breast cancer, which includes their family history. At that time, you may recommend additional screening tests (Ultrasoun d or MRI) as these tests may add significant information. A negative radiographic report should not delay biopsy if a dominant or clinically suspicious mass is present. Up to ten percent of cancers are not identified on mammography. A negative report may reinforce clinical impression. Adenosis and dense breasts may obscure an underlying neoplasm. False positive reports average 6 to 10%. Patient will receive a letter notifying them of these results.
== END 2021-01-21 02:17 ==
PROVIDERS: PCP Family Medicine; Visit Provider Family Medicine
DX: Z12.31 Encounter for screening mammogram for malignant neoplasm of breast (principal); N64.89 Other specified disorders of breast
CPT/HCPCS: 77063; 77067

== ENCOUNTER 2021-03-31 03:14 | Outpatient (CLI) | payer OTHER, SELFPAY ==
--- NOTE | 2021-03-31 | DI.MAMMO_ITS ---
Exam(s) MAMMO SCREEN CALL BACK UNI EXAM: MAMMO SCREEN CALL BACK UNI CLINICAL HISTORY: F/U MAMMO, LT ASYMMETRIC DENSITY, ? NODULE TECHNIQUE: Spot compression views and tomographic imaging were performed. COMPARISON: 2012 through 21 January 2021 FINDINGS: No suspicious masses or suspicious microcalcifications are seen. No persistent abnormality is seen on the additional views performed. The findings are consistent wit h overlying fibroglandular tissue. There is stable scarring related to breast reduction. There has been no significant change from prior exams. IMPRESSION: BI-RADS Category 1, Negative Yearly screening mammography is recommended. Breast Density - Category B, scattered fibroglandular densities.
== END 2021-03-31 03:34 ==
PROVIDERS: PCP Family Medicine; Visit Provider Family Medicine
DX: R92.8 Other abnormal and inconclusive findings on diagnostic imaging of breast (principal)
CPT/HCPCS: 77063; 77067

== ENCOUNTER 2021-04-20 10:36 | Outpatient (CLI) | payer OTHER, SELFPAY ==
--- NOTE | 2021-04-20 10:30 | RT.EKG_ITS ---
APPROVED REPORT Exam: Resting ECG Reason for Exam: Pre-op H P Patient Location: O HR:90 bpm ECG Measurements Heart Rate 90 AXIS IL 164 P 81 QRSd 76 QRS -2 QT 361 T 54 QTc 443 Conclusion Sinus rhythm...normal P axis, V-rate 60- 99 Probable left atrial enlargement...P >50mS, <-0.10mV V1
== END 2021-04-20 10:37 | disposition home or self-care (01) ==
LOC: DI.CM 10:37
PROVIDERS: PCP Family Medicine; Visit Provider Family Medicine
DX: R00.0 Tachycardia, unspecified (principal); Z01.818 Encounter for other preprocedural examination
CPT/HCPCS: 93010

== ENCOUNTER 2021-07-20 09:59 | Outpatient (CLI) | payer OTHER, SELFPAY ==
--- NOTE | 2021-07-20 08:30 | DI.RAD_ITS ---
Exam(s) XR ANKLE LT COMPLETE EXAM: XR ANKLE LT COMPLETE CLINICAL HISTORY: pain at operative site M79.672 PAIN LT FOOT, B99.9 INFECTIOUS DISEASE. TECHNIQUE: 2D digital imaging was performed. COMPARISON: CR XR FOOT RT COMPLETE from 10/13/2020 CR XR FOOT RT COMPLETE from 10/13/2020 FINDINGS: Three views of the left ankle reveal generalized osteopenia no fracture nor widening of the ankle mor tise. No distinct focal abnormality in the talar dome. No radiographic evidence of osteomyelitis. No obvious degenerative changes in the ankle and subtalar joints. Calcaneocuboid and tail 0 navicula r joints also appear unremarkable. There is no inferior calcaneal spur. No evidence of osseous tars al coalition. IMPRESSION: Generalized osteopenia bones of the ankle. Incidentally noted in the distal aspect field of this study is in exostoses-possible osteo chondroma off of the medial aspect of the distal 3rd of the 2nd toe metatarsal. If clinically indicated follow -up foot radiographs can be obtained. DATA REPOSITORY: RADIATION DOSE DELIVERED:
== END 2021-07-20 10:19 ==
PROVIDERS: PCP Family Medicine; Visit Provider Family Medicine
DX: M79.672 Pain in left foot; M85.872 Other specified disorders of bone density and structure, left ankle and foot; Z98.890 Other specified postprocedural states
CPT/HCPCS: 73610

== ENCOUNTER 2021-07-21 02:56 | Outpatient (CLI) | payer OTHER, SELFPAY ==
[2021-07-21 11:04] LABS: Abs Immature Grans 0.04 10^3/uL (0.0-0.06); Absolute Basophil Count 0.14 10^3/uL (0.0-0.2); Absolute Eosinophil Count 0.21 10^3/uL (0.0-0.7); Absolute Lymphocyte Count 3.31 10^3/uL (1.2-3.4); Absolute Monocyte Count 0.78 10^3/uL (0.1-0.8); Absolute Neutrophil Count 5.39 10^3/uL (1.2-6.7); Basophils % 1.4; ESR 13 mm/hr (0-30); Eosinophils % 2.1; HGB 13.9 g/dL (11.2-15.7); Immature Grans % 0.4; Lymphocytes % 33.5; MCH 30.8 pg (27.0-33.0); MCHC 31.6 % (32.0-36.0); MCV 97.3 fL (80-95); Monocytes % 7.9; Neutrophils % 54.7; Nucleated RBC 0 %; Platelet Count 312 10^3/uL (130-400); RBC 4.52 10^6/uL (3.93-5.22); RDW 12.5 % (11.7-14.6); RDW-SD 44.7 fL; WBC 9.87 10^3/uL (4.4-10.8)
[2021-07-21 12:08] LABS: ALT 23 U/L (14-59); AST 20 U/L (15-37); Albumin 3.9 g/dL (3.4-5.0); Alkaline Phosphatase 83 U/L (46-116); Anion Gap 5.8 mmol/L (3-11); BUN 11 mg/dL (7-18); Bilirubin, Total 0.3 mg/dL (0.2-1.0); C-Reactive Protein 0.23 mg/dL (0.0-0.3); CO2 31.2 mmol/L (21.0-32.0); CREATININE 0.8 mg/dL (0.55-1.02); Calcium 9.4 mg/dL (8.5-10.1); Chloride 100 mmol/L (98-107); Glucose 94 mg/dL (74-106); Potassium 4.6 mmol/L (3.5-5.1); Sodium 137 mmol/L (136-145); Total Protein 7.4 g/dL (6.4-8.2)
== END 2021-07-21 02:57 | disposition home or self-care (01) ==
LOC: LBO 02:56
PROVIDERS: PCP Family Medicine; Visit Provider Family Medicine
DX: B99.9 Unspecified infectious disease (principal); M77.41 Metatarsalgia, right foot; M77.42 Metatarsalgia, left foot
CPT/HCPCS: 36415; 80053; 85652; 85025; 86140

== ENCOUNTER → 2022-07-20 14:39 | Outpatient (CLI) | payer OTHER, SELFPAY ==
--- NOTE | 2022-07-20 14:15 | DI.RAD_ITS ---
Exam(s) XR ANKLE LT COMPLETE EXAM: XR ANKLE LT COMPLETE CLINICAL HISTORY: ankle swelling; s/p hardware removal ? any left M25.572 PAIN LT ANKLE. TECHNIQUE: 2D digital imaging was performed. COMPARISON: CR XR ANKLE LT COMPLETE from 07/20/2021 FINDINGS: 3 views There is no evidence of fracture or widening of ankle mortise. Talar dome appears unremarkable. No soft tissue swelling. No obvious degenerative changes in the ankle and subtalar joints. No osseous tarsal coalition evident. IMPRESSION: No significant osseous findings in the ankle. DATA REPOSITORY: RADIATION DOSE DELIVERED:
== END ==
PROVIDERS: PCP Family Medicine; Visit Provider Family Medicine
DX: M25.572 Pain in left ankle and joints of left foot (principal)
CPT/HCPCS: 73610

== ENCOUNTER 2023-02-01 11:06 | Outpatient (REF) | payer OTHER, SELFPAY ==
[2023-02-01 13:17] LABS: Bilirubin Negative (Negative); Blood Trace-lysed (Negative); Clarity Sl Cloudy (Clear); Glucose Negative (Negative); Ketones Negative (Negative); Leukocyte Esterase Trace (Negative); Nitrite Positive (Negative); Specific Gravity 1.015 (1.005-1.025); Urobilinogen 0.2 mg/dL (Up to 0.2)
[2023-02-01 13:29] LABS: Bacteria Moderate HPF (Negative); C & S Indicated? No/Sq. Contamination; Casts Negative LPF (Negative); Crystals Negative HPF (Negative); Epithelial Cells Moderate HPF (Negative); Mucus Negative (Negative); WBC >50 HPF (0-5)
== END 2023-02-01 11:07 | disposition home or self-care (01) ==
LOC: LBN 11:06
PROVIDERS: PCP Family Medicine; Visit Provider Family Medicine
DX: R30.0 Dysuria (principal)
CPT/HCPCS: 81003; 81015

== ENCOUNTER 2023-02-14 14:25 | Outpatient (REF) | payer OTHER, SELFPAY ==
--- NOTE | 2023-02-14 14:00 | PAPFT_PTH ---
PATIENT: Kandi Du LOC: [facility] U#:[id number] AGE/SX: 62/F ROOM: RE02/14/[address]: Kourtney Chahal MD, DC : 1960 BED: DIS: 02/14/2023 SPEC #: [id number] RECD: 02/15/23 12:51 STATUS: DANILO REAbbe #: [id number] JAYA: 02/14/23 14:[address]: Kourtney Chahal DEPT: [facility] Cytology RECD BY: Myranda Reeder Tissues: 1 - CX/ENDOCX FOR PAP SMEARS Procedures: PAP THIN PREP/UVM Screening HPV DNA PROBE Comments: [id number]
== END 2023-02-14 14:26 | disposition home or self-care (01) ==
LOC: LBN 14:25
PROVIDERS: PCP Family Medicine; Visit Provider Family Medicine
DX: Z11.51 Encounter for screening for human papillomavirus (HPV) (principal)
CPT/HCPCS: 88142; 87624

== ENCOUNTER 2023-04-22 10:25 | Outpatient (CLI) | payer OTHER, SELFPAY ==
[2023-04-22 10:58] LABS: ALT 29 U/L (14-59); AST 26 U/L (15-37); Albumin 4.1 g/dL (3.4-5.0); Alkaline Phosphatase 73 U/L (46-116); BUN 13 mg/dL (7-18); Bilirubin, Total 0.3 mg/dL (0.2-1.0); CREATININE 0.8 mg/dL (0.55-1.02); Calcium 9.7 mg/dL (8.5-10.1); Chloride 104 mmol/L (98-107); Estimated GFR 83.26 (mL/min/1.73m2); Glucose 102 mg/dL (74-106); Potassium 4.2 mmol/L (3.5-5.1); Sodium 141 mmol/L (136-145); Total Protein 8.1 g/dL (6.4-8.2)
== END 2023-04-22 10:26 | disposition home or self-care (01) ==
LOC: LBO 10:25
PROVIDERS: PCP Family Medicine; Visit Provider Family Medicine
DX: I10 Essential (primary) hypertension (principal)
CPT/HCPCS: 36415; 80053

== ENCOUNTER 2023-12-07 10:18 | Outpatient (CLI) | payer OTHER, SELFPAY ==
[2023-12-07 10:29] VITALS: BP 150/108; PULSE 87; RESP 20; TEMP 36.7; O2SAT 100
[2023-12-07 11:19] VITALS: PULSE 86; O2SAT 95
[2023-12-07] MEDS: Bupivacaine 0.5% Pres-Free 10 ML VIAL IJ (11:20)
[2023-12-07] MEDS: Lidocaine 2% Pres-Free 5 ML VIAL IJ (11:21)
[2023-12-07] MEDS: methylPREDNISolone ACETATE 40 MG/ML VIAL IJ (11:21)
[2023-12-07] MEDS: Nerve Block Tray 1 EACH MC (11:21)
--- NOTE | 2023-12-12 06:03 | PDOC.PAIN_ITS ---
Date of service: 12/07/23 Time of Service: 11:00 Pain Managment Procedure Note Procedure Note Procedure Note: ULTRASOUND GUIDED left Sural nerve block : Pre-Procedural Evaluation: Kandi Du has been referred to the Pain Management Center for an Ultrasound Guided left Sural nerve block for a chief complaint of lateral left ankle and foot pain. Pre-procedure Pain Score: 9/10 Dx: Left Sural neuropathy Patient was interviewed and the medical record reviewed. There were no medical, pharmacologic, radiographic, or other structural contraindications to preforming an ultrasound guided injection. Risks and expected side effects as well as potential benefits of the procedure were reviewed. The patient consent form was signed and witnessed. Standard time-out procedure was performed. The use of direct ultrasound visualization of the needle (rather than a non- guided injection) was required to increase patient safety by excluding inadvertent intramuscular, intratendinous, or intraneural needle placement and minimizing bleeding by avoiding osteochondral or vascular injury from the needle. Additionally, the increased accuracy of placement may increase clinical effectiveness and will allow higher diagnostic specificity when evaluating effectiveness of this injection. Procedure Description: The patient was placed in the right lateral recumbant position and automated blood pressure cuff and pulse oximeter applied for monitoring during the procedure and recorded in the medical record. Pre-injection ultrasound scanning of the area of interest was performed using li near transducer, identifying relevant anatomy, landmarks, and neurovascular structures allowing for optimal needle path. The site was then prepared in the usual sterile fashion, using thorough Chlorhexadine preparation of the skin and sterile draping. The same ultrasound transducer was then passed into the sterile field using sterile probe cover and sterile ultrasound gel. The injection target was again visualized. Skin and subcutaneous tissues were anesthetized with 2 mL of 1% Lidocaine. A 21G Pajunk Ultrasound needle was placed under live ultrasound guidance, using an in- plane approach, to the target area. After visualization of the needle tip at the target area, next I injected 3 cc of 2% Lidocaine followed by 1 cc of Depomedrol (40 mg/cc) and this was followed by 3 cc of 0.5% Bupivacaine. This was all delivered after negative aspiration for blood. Ultrasound images were captured and stored for documentation purposes. Post-procedure Pain Score:0/10 Vital signs were stable throughout the procedure and were as recorded in the docflowsheet by the nursing staff. Follow up plans and appointments were discussed with the patient.Post procedure instruction was given as documented in nursing documentation and having met discharge criteria, they were discharged from the Pain Management Center. COMMENTS: She tolerated this procedure well. This procedure can be repeated if she receives significant pain relief Srini Christine DO, MPH [facility]-Pain Management [facility]-Center for Pain Management
== END 2023-12-07 10:19 | disposition home or self-care (01) ==
PROVIDERS: PCP Nurse Practitioner Family; Visit Provider Preventive Medicine Occupational Medicine
DX: G57.82 Other specified mononeuropathies of left lower limb (principal)
CPT/HCPCS: 64450; 64510; J0665; J1010

== ENCOUNTER 2024-01-13 01:16 | Outpatient (CLI) | payer OTHER, SELFPAY ==
[2024-01-13 12:51] LABS: Abs Immature Grans 0.04 10^3/uL (0.0-0.06); Absolute Basophil Count 0.11 10^3/uL (0.0-0.2); Absolute Eosinophil Count 0.27 10^3/uL (0.0-0.7); Absolute Lymphocyte Count 2.67 10^3/uL (1.2-3.4); Absolute Monocyte Count 0.79 10^3/uL (0.1-0.8); Absolute Neutrophil Count 5.89 10^3/uL (1.2-6.7); Basophils % 1.1 %; Eosinophils % 2.8 %; HCT 46.4 % (36.0-46.0); HGB 15.1 g/dL (11.2-15.7); Immature Grans % 0.4 %; Lymphocytes % 27.3 %; MCH 32.1 pg (27.0-33.0); MCHC 32.5 % (32.0-36.0); MCV 99 fL (80-95); MPV 9.6 fL (8.0-11.0); Monocytes % 8.1 %; Neutrophils % 60.3 %; Platelet Count 307 10^3/uL (130-400); RBC 4.71 10^6/uL (3.93-5.22); RDW 13.4 % (11.7-14.6); RDW-SD 49.4 fL; WBC 9.77 10^3/uL (4.4-10.8)
[2024-01-13 13:03] LABS: INR 0.9 (0.9-1.1); PTT Activated 26.2 sec (23.6-32.8); Prothrombin Time 9.2 sec (9.1-11.1)
[2024-01-13 13:17] LABS: Iron 54 ug/dL (50-170); Total Iron Binding Capacity 335 ug/dL (250-450); Transferrin Sat 16 % (15-50)
[2024-01-13 13:29] LABS: ALT 30 U/L (14-59); AST 23 U/L (15-37); Albumin 3.6 g/dL (3.4-5.0); Alkaline Phosphatase 84 U/L (46-116); Anion Gap 3.5 mmol/L (3-11); BUN 18 mg/dL (7-18); Bilirubin, Total 0.36 mg/dL (0.2-1.0); CO2 33.5 mmol/L (21.0-32.0); CREATININE 0.8 mg/dL (0.55-1.02); Calcium 9.2 mg/dL (8.5-10.1); Chloride 102 mmol/L (98-107); Estimated GFR 82.74 (mL/min/1.73m2); Ferritin 192 ng/mL (8-252); Glucose 98 mg/dL (74-106); Magnesium 2.2 mg/dL (1.8-2.4); Potassium 4.2 mmol/L (3.5-5.1); Sodium 139 mmol/L (136-145); TSH (W/Ref FT4) 1.15 uIU/mL (0.36-3.74); Total Protein 7.5 g/dL (6.4-8.2)
[2024-01-13 13:57] LABS: Uric Acid 4.9 mg/dL (2.6-6.0)
== END 2024-01-13 01:17 | disposition home or self-care (01) ==
LOC: LOS 01:17
PROVIDERS: PCP Nurse Practitioner Family; Visit Provider Nurse Practitioner Family
DX: M25.572 Pain in left ankle and joints of left foot (principal); M79.672 Pain in left foot; R23.3 Spontaneous ecchymoses; R25.2 Cramp and spasm
CPT/HCPCS: 36415; 80053; 82728; 83540; 83550; 83735; 84443; 84550; 85025; 85610; 85730

== ENCOUNTER 2024-01-24 08:23 | Day surgery (SDC) | payer OTHER, SELFPAY ==
--- NOTE | 2024-01-24 06:33 | W.ANESPRE ---
General Info Date of Service Date Performed: 01/24/24 Height: 5 ft 6.5 in Weight: 81 kg Body Mass Index (BMI): 28.3 Surgical Procedure: Operation Date: 01/24/24 09:50 Proposed Procedure Side Surgeon jamir Phipps MD Meds Allergies and Home Medications Allergies Allergy/AdvReac Type Severity Reaction Status Date / Time Penicillins Allergy Severe SKIN RASH Unverified 01/24/24 08:45 oxycodone AdvReac Mild NAUSEA Unverified 01/24/24 08:45 Home Medication Medication Instructions Recorded acetaminophen 500 mg tablet 500 mg PO Q6H PRN PRN pain #40 tabs 09/02/20 trazodone 150 mg tablet 150 mg PO HS PRN insomnia #90 tabs 06/29/21 montelukast 10 mg tablet 10 mg PO DAILY #90 tabs 04/20/23 (Singulair) diclofenac sodium 1 % topical gel 4 g topical QID PRN 04/25/23 (Arthritis Pain (diclofenac)) budesonide 160 mcg-glycopyr 9 2 inh inhalation QAM AND QPM #10.7 09/26/23 mcg-formot 4.8 mcg/actuation HFA grams inhaler (Breztri Aerosphere) hydrochlorothiazide 12.5 mg tablet See Rx Instructions .Route 09/26/23 .COMPLEX #90 tabs ipratropium 0.5 mg-albuterol 3 mg 3 ml inhalation Q4H PRN wheezing 09/26/23 (2.5 mg base)/3 mL nebulization #90 mL soln gabapentin 300 mg capsule See Rx Instructions .Route 11/23/23 .COMPLEX #180 caps albuterol sulfate 90 mcg/actuation 2 puff inhalation QID PRN 01/09/24 aerosol inhaler bronchospasm #8.5 grams clonazepam 0.5 mg disintegrating 0.5 mg PO DAILY PRN anxiety #28 01/09/24 tablet tabs oxycodone-acetaminophen 5 mg-325 1 tab PO BID PRN pain #56 tabs 01/09/24 mg tablet (Percocet) Current Visit Medications: Current Medications Generic Name Dose Route Start Last Admin Trade Name Freq PRN Reason Stop Dose Admin Ringer's Solution 1,000 mls @ 80 mls/hr 01/24/24 06:00 IV 07/31/24 23:59 INFUSION HAZEL IV Miscellaneous Supplies 1 each 01/24/24 06:00 Iv Access IV 02/22/24 23:59 DIRECTED HAZEL Sodium Chloride 0 ml 01/24/24 06:00 Normal Saline Flush 10 Ml Syr IV 02/22/24 23:59 PRN PRN Sodium Chloride 0 ml 01/24/24 06:00 Normal Saline 10 Ml Vial IJ 02/22/24 23:59 DIRECTED PRN Sterile Water 0 ml 01/24/24 06:00 Water,Injection,Sterile 10 Ml Vial IJ 02/22/24 23:59 DIRECTED PRN PFSH Active Problems Active Problems: Problem Status Onset Code Muscle cramps R25.2 Easy bruising R23.3 Sural neuropathy G57.90 COPD (chronic obstructive pulmonary disease) 06/07/11 J44.9 Hypertension I10 Left ankle pain M25.572 CRPS (complex regional pain syndrome) Left ankle instability M25.372 Foot pain, left M79.672 Infection B99.9 COVID ~03/2021 U07.1 Ischial bursitis of left side M70.72 Metatarsalgia of both feet M77.41, M77.42 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 states r/t to a mild concussion 2014, but memory has returned and has had no issues. Shortness of breath pt. states she was overmedicated on steroids, and since been weened off and states her breathing is perfect. Unspecified injury of head, sequela 07/28/15 continue post-concussive headaches Lipoma of axilla 07/28/15 left. 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 Tubular adenoma x2. Sessile serrated adenoma x1. Status post cervical spinal arthrodesis History of bilateral tubal ligation H/O reduction mammoplasty S/P bunionectomy B/L H/O skin graft for lumbar fusion (scars B/L flanks/buttocks H/O spinal fusion 07/25/99 L5-S1 cervical fusion 03/[address] C5-[address] Dobson, Teresita Moore; 06/11/15 SKIN GRAFT FOR LUMBAR FUSION (SCARS B/L FLANKS/BUTTOCKS) LIVER BX AXILLARY MASS BX Tobacco Smoking/Tobacco Use Status: Former Tobacco Use Passive smoking exposure: No Second hand exposure: Yes Alcohol Alcohol Intake: former Substance Use Substance use: Occasionally Details: She consumes marijuana edibles. t-1, edibles, last taken one month ago Vital Signs and Lab Results Vital Signs Most Recent Vital Signs in EMR: Temp Pulse Resp BP Pulse Ox 36.7 C 97 H 16 158/89 H 93 01/24/24 09:02 01/24/24 09:02 01/24/24 09:02 01/24/24 09:02 01/24/24 09:02 Lab Results Blood Type / Crossmatch: No Data to Display Complete Blood Count: White Blood Count 9.77 10^3/uL (4.4-10.8) 01/13/24 08:58 Red Blood Count 4.71 10^6/uL (3.93-5.22) 01/13/24 08:58 Hemoglobin 15.1 g/dL (11.2-15.7) 01/13/24 08:58 Hematocrit 46.4 % (36.0-46.0) H 01/13/24 08:58 Platelet Count 307 10^3/uL (130-400) 01/13/24 08:58 Complete Metabolic Panel: Sodium 139 mmol/L (136-145) 01/13/24 08:58 Potassium 4.2 mmol/L (3.5-5.1) 01/13/24 08:58 Chloride 102 mmol/L (98-107) 01/13/24 08:58 Carbon Dioxide 33.5 mmol/L (21.0-32.0) H 01/13/24 08:58 BUN 18 mg/dL (7-18) 01/13/24 08:58 Creatinine 0.8 mg/dL (0.55-1.02) 01/13/24 08:58 Est GFR (CKD-EPI 2020) 82.74 (mL/min/1.73m2) 01/13/24 08:58 Magnesium 2.2 mg/dL (1.8-2.4) 01/13/24 08:58 Calcium 9.2 mg/dL (8.5-10.1) 01/13/24 08:58 Albumin 3.6 g/dL (3.4-5.0) 01/13/24 08:58 Glucose 98 mg/dL (74-106) 01/13/24 08:58 Liver Function Panel: Alanine Aminotransferase (ALT/SGPT) 30 U/L (14-59) 01/13/24 08:58 Aspartate Amino Transf (AST/SGOT) 23 U/L (15-37) 01/13/24 08:58 Coagulation Panel: INR International Normalized Ratio 0.9 (0.9-1.1) 01/13/24 08:58 Prothrombin Time 9.2 sec (9.1-11.1) 01/13/24 08:58 Activated Partial Thromboplast Time 26.2 sec (23.6-32.8) 01/13/24 08:58 Cardiac Panel: No Data to Display Arterial Blood Gas: No Data to Display Venous Blood Gas: No Data to Display Pancreas Panel: No Data to Display Thyroid Panel: Thyroid Stimulating Hormone (TSH) 1.15 uIU/mL (0.36-3.74) 01/13/24 08:58 Infectious Disease: No Data to Display Blood Cultures: No Data to Display Toxicology Panel: No Data to Display Imaging and Studies Imaging and Studies Study information below may be from another EMR and interpreted by another provider. Please see original notes in EMR for more complete details. EKG Summary: 04/14: sinus rhythm. probable LAE. Echocardiogram Summary: 04/12: LVEF 60-65%. moderate ascending Ao dilation, PAS 20-30 mmhg. Anesthesia Assessment and Plan Anesthesia History Personal History: No History of Anesthesia Complications Family History: No Family History of Anesthesia Complications Exercise Tolerance Exercise Tolerance: Metabolic Equivalents>4 Cardiac & Pulmonary Exam Cardiac Exam: Normal S1/S2 Heart Sounds Pulmonary Exam: Clear Bilateral Breath Sounds Implantable Cardiac Device Does patient have a Pacemaker or an ICD?: No Airway Exam Known Difficult Airway: No Mallampati Class: 1 Mouth Opening: Normal (> 3cm) Thyromental Distance: Greater than 3 cm Neck Range of Motion: Full ROM and History of Cervical Fusion Neck Circumference: Normal Teeth Condition: Removable Dentures/Plates Upper ASA Classification ASA Score: ASA 3 Emergency Case?: No NPO Status NPO Status: NPO Clears >2 hours, Solids >8 hours Anesthesia Plan Resuscitation Status: Full Code Anesthesia Technique: General Anesthesia Airway Planned: Natural Airway Monitors Used: Standard Monitors Preoperative Comments:: 63 yo female for colo. Sig PMHx: HTN, COPD, anxiety/depression. former smoker, occ cannabis. Chronic ankle pain. Previous Anes: - plantar fasciectomy, ketamine/midz, prop, natural airway no issues. - Mortons neuroma, midz, prop, natural airway. no issues. - colo, prop, natural airway, no issues.
[2024-01-24 09:02] VITALS: BP 158/89; PULSE 97; RESP 16; TEMP 36.7; O2SAT 93
[2024-01-24] MEDS: Lactated Ringers 1,000 ML 80 ML IV (09:06)
[2024-01-24 09:39] VITALS: BMI 28.3
--- NOTE | 2024-01-24 10:24 | BOWEL_PTH ---
PATIENT: Kandi Du LOC: [facility] U#:[id number] AGE/SX: 63/F ROOM: RE01/24/[address]: Andrae Phipps : 1960 BED: DIS: 01/24/2024 SPEC #: [id number] RECD: 01/24/24 13:05 STATUS: DANILO REAbbe #: [id number] JAYA: 01/24/24 10:[address]: Andrae Phipps DEPT: Surgical Specimen RECD BY: Myranda Reeder ENTERED: 01/24/24 13:05 SP TYPE: Bowel OTHR DR: Anne Marie Ruth, ARNULFO Tissues: 1 - BIOPSY BOWEL Procedures: GROSS AND MICRO LEVEL 4 Comments: [id number]
[2024-01-24 10:31] VITALS: BP 124/104; PULSE 85; RESP 16; TEMP 36; O2SAT 98
--- NOTE | 2024-01-24 10:39 | COLE_ITS ---
Date of service: 01/24/24 Time of Service: 10:39 Colonoscopy Report Procedure Description: PROCEDURES PERFORMED: 1. Colonoscopy with hot snare polypectomy 2. Ablation/fulguration/destruction of polyps x 2 PREOPERATIVE DIAGNOSIS: Surveillance colonoscopy, colon polyps POSTOPERATIVE DIAGNOSIS: Rectal polyp, redundant sigmoid with extensive sigmoid fibrosis and sigmoid diverticulosis. No focal stricture. SURGEON: Lisa Phipps MD INDICATION for procedure: The patient is a 63-year-old woman due for surveillance colonoscopy. She has a history of sessile serrated adenomatous polyps. Last colonoscopy 5 years ago. She does have difficulty going to the bathroom sometimes FINDINGS: Terminal ileum was normal. There were no polyps seen or found in the colon. A small 3-5 mm sessile polyp was removed with hot snare from the rectum. 2 other small, flat polyps were ablated with the tip of the hot snare. Her sigmoid colon is quite redundant and forms and now for loop. It is also fibrotic and noticeably stiff related to sigmoid diverticular disease. There is no focal stricture but about 20 cm of sigmoid was notably difficult to navigate with the colonoscope. Minimal internal hemorrhoid disease noted on retroflexion. SURVEILLANCE interval/FOLLOW-UP: 3-5 years. If the polyp is sessile serrated then she should have another colonoscopy in 3 years. If any other histology then a 5-year follow-up. A sigmoid resection electively could potentially provi de symptom relief based off of my findings today. SPECIMENS: yes EBL: Minimal COMPLICATIONS: None QUALITY of prep: Excellent Procedure in detail: The patient gave written consent and was in agreement with the indications, the potential risks as well as the benefits of the procedure. They were taken to the endoscopy suite and laid in the left lateral decubitus position. A timeout was performed and anesthesia was administered which was tolerated well. I started the procedure. Digital rectal and visual examination was performed and grossly within normal limits. A well-lubricated flexible colonoscope was then introduced and passed without any notable difficulty all the way to the cecum identified by the ileocecal valve and the appendiceal orifice. I briefly intubated the terminal ileum and it looked normal. The scope was then slowly withdrawn with the above- noted findings. The patient tolerated the procedure well and was taken to the PACU in hemodynamically stable condition.
--- NOTE | 2024-01-24 10:46 | PDOC.DSDIS_ITS ---
Date of service: 01/24/24 Time of Service: 10:46 Discharge Plan Disposition Patient Disposition: Home Condition: Good Discharge Details Attending Provider: Andrae Phipps Primary Care Provider: Anne Marie Ruth Home Meds and New Rx's Prescriptions: No Action trazodone 150 mg tablet 150 mg PO HS PRN (Reason: insomnia) Qty: 90 4RF albuterol sulfate 90 mcg/actuation HFA aerosol inhaler 2 puff IH QID PRN (Reason: bronchospasm) Qty: 8.5 12RF clonazepam 0.5 mg tablet,disintegrating 0.5 mg PO DAILY MDD 1 tablet PRN (Reason: anxiety) Qty: 28 0RF oxycodone-acetaminophen [Percocet] 5-325 mg tablet 1 tab PO BID MDD 2 tablets PRN (Reason: pain) Qty: 56 0RF montelukast [Singulair] 10 mg tablet 10 mg PO DAILY Qty: 90 4RF diclofenac sodium [Arthritis Pain (diclofenac)] 1 % gel 4 g topical QID PRN Patient Comments: Prescribed by MADELEINE Daugherty [facility] 04/22/23 Rx Instructions: apply to single knee, ankle, foot; for foot includes sole/toes/top of foot hydrochlorothiazide 12.5 mg tablet See Rx Instructions .ROUTE .COMPLEX Qty: 90 4RF Dose Instruction: TAKE ONE TABLET BY MOUTH EVERY MORNING Rx Instructions: TAKE ONE TABLET BY MOUTH EVERY MORNING Breztri Aerosphere 160-9-4.8 mcg/actuation HFA aerosol inhaler 2 inh inhalation QAM AND QPM Qty: 10.7 3RF ipratropium-albuterol 0.5 mg-3 mg(2.5 mg base)/3 mL solution for nebulization 3 ml inhalation Q4H PRN (Reason: wheezing) Qty: 90 0RF Rx Instructions: COPD gabapentin 300 mg capsule See Rx Instructions .ROUTE .COMPLEX Qty: 180 5RF Dose Instruction: TAKE ONE CAPSULE BY MOUTH TWICE A DAY Rx Instructions: TAKE ONE CAPSULE BY MOUTH TWICE A DAY acetaminophen 500 mg tablet 500 mg PO Q6H PRN PRN (Reason: pain) Qty: 40 3RF Discharge Instructions Additional Instructions: FINDINGS: A few more small polyps were found and removed today. Overall they are nothing to worry about and are probably similar to the prior polyps you have had taken out. You do not have an intestinal blockage, but your diverticulosis has made an area in your sigmoid colon loose and floppy such that I think some amount of kinking is taking place on and off and that is probably the cause of your difficulty having a bowel movement. If you want to discuss this further, call and schedule follow-up appointment in the office to go over next steps and strategy. You should have another colonoscopy in 3 to 5 years depending on the path results of the polyps. Activity:: Activity as Tolerated Diet:: As Tolerated
--- NOTE | 2024-01-24 10:49 | W.ANESPOSTOP ---
Postoperative Evaluation Date, Time and Location Date Performed: 01/24/24 Time Performed: 10:49 Patient Location: Day Surgery Unit Vital Signs Most Recent Imported Vital Signs: Most Recent Vital Signs Temp Pulse Resp BP Pulse Ox 36 C L 85 16 124/104 H 98 01/24/24 10:31 01/24/24 10:31 01/24/24 10:31 01/24/24 10:31 01/24/24 10:31 Pain Score Most Recent Pain Score: Most Recent Pain Score Pain Level 0 01/24/24 10:31 Assessment Mental Status: Awake (Alert & Oriented to Patient Baseline) Airway and Respiratory Function: Patent airway with normal (patient baseline) respiratory exam Cardiovascular Function: Hemodynamically Stable Hydration Status: Adequately Hydrated Nausea & Vomiting: No Nausea or Vomiting Pain: Pt. Denies Any Pain Peripheral Nerve Block: Patient did not receive a nerve block
[2024-01-24 10:58] VITALS: BP 133/67; PULSE 86; RESP 16; TEMP 36.2; O2SAT 95
== END 2024-01-24 11:42 | disposition home or self-care (01) ==
PROVIDERS: PCP Nurse Practitioner Family; Visit Provider Student in an Organized Health Care Education/Training Program
PROC: 0DJD8ZZ Inspection of Lower Intestinal Tract, Via Natural or Artificial Opening Endoscopic (ICD-10-PCS; CPT 45378; principal; 2024-01-24 09:45)
DX: Z12.11 Encounter for screening for malignant neoplasm of colon (principal); I10 Essential (primary) hypertension; K57.30 Diverticulosis of large intestine without perforation or abscess without bleeding; K64.8 Other hemorrhoids; K62.1 Rectal polyp
CPT/HCPCS: 45388; 45385; 00123; 88305; J2704

== ENCOUNTER 2024-03-14 14:58 | Outpatient (CLI) | payer OTHER, SELFPAY ==
[2024-03-14 15:18] VITALS: BP 152/98; PULSE 97; RESP 18; TEMP 36.8; O2SAT 95
--- NOTE | 2024-03-14 16:01 | PDOC.PAIN_ITS ---
Date of service: 03/14/24 Time of Service: 16:02 Pain Managment Procedure Note Procedure Note Procedure Note: PROCEDURE NOTE Ultrasound-guided Left Sural nerve block Date of Service: March 14, 2024 Patient: Kandi Du Provider: Srini Christine DO, MPH Kandi Du has been referred to the Pain Management Center for an Ultrasound-guided Left Sural nerve block. Comments: She had 2 months of >50% pain relief with the first left Sural nerve block. She was able to walk for exercise. About 50% of her pain has returned. Pain Managment Procedure Note ULTRASOUND GUIDED left Sural nerve block : Pre-Procedural Evaluation: Kandi Du has been referred to the Pain Management Center for an Ultr asound Guided left Sural nerve block for a chief complaint of lateral left ankle and foot pain. Pre-procedure Pain Score: 7/10 Dx: Left Sural neuropathy Patient was interviewed and the medical record reviewed. There were no medical, pharmacologic, radiographic, or other structural contraindications to preforming an ultrasound guided injection. Risks and expected side effects as well as potential benefits of the procedure were reviewed. The patient consent form was signed and witnessed. Standard time-out procedure was performed. The use of direct ultrasound visualization of the needle (rather than a non- guided injection) was required to increase patient safety by excluding inadvertent intramuscular, intratendinous, or intraneural needle placement and minimizing bleeding by avoiding osteochondral or vascular injury from the needle. Additionally, the increased accuracy of placement may increase clinical effectiveness and will allow higher diagnostic specificity when evaluating effectiveness of this injection. Procedure Description: The patient was placed in the right lateral recumbant position and automated blood pressure cuff and pulse oximeter applied for monitoring during the procedure and recorded in the medical record. Pre-injection ultrasound scanning of the area of interest was performed using linear transducer, identifying relevant anatomy, landmarks, and neurovascular structures allowing for optimal needle path. The site was then prepared in the usual sterile fashion, using thorough Chlorhexadine preparation of the skin and sterile draping. The same ultrasound transducer was then passed into the sterile field using sterile probe cover and sterile ultrasound gel. The injection target was again visualized. Skin and subcutaneous tissues were anesthetized with 2 mL of 1% Lidocaine. A 21G Pajunk Ultrasound needle was placed under live ultrasound guidance, using an in- plane approach, to the target area. After visualization of the needle tip at the target area, next I injected 3 cc of 2% Lidocaine followed by 1 cc of Depomedrol (40 mg/cc) and this was followed by 3 cc of 0.5% Bupivacaine. This was all delivered after negative aspiration for blood. Ultrasound images were captured and stored for documentation purposes. Post-procedure Pain Score:0/10 Vital signs were stable throughout the procedure and were as recorded in the docflowsheet by the nursing staff. Follow up plans and appointments were discussed with the patient.Post procedure instruction was given as documented in nursing documentation and having met discharge criteria, they were discharged from the Pain Management Center. COMMENTS: She tolerated this procedure well. This procedure can be repeated if she receives significant pain relief Srini Christine DO, MPH [facility]-Pain Management [facility]-Center for Pain Management
[2024-03-14 16:04] VITALS: PULSE 97; O2SAT 100
[2024-03-14] MEDS: Bupivacaine 0.5% Pres-Free 10 ML VIAL IJ (16:06)
[2024-03-14] MEDS: methylPREDNISolone ACETATE 40 MG/ML VIAL IJ (16:07)
[2024-03-14] MEDS: Lidocaine 2% Pres-Free 5 ML VIAL IJ (16:07)
[2024-03-14] MEDS: Nerve Block Tray 1 EACH MC (16:08)
== END 2024-03-14 14:59 | disposition home or self-care (01) ==
LOC: PC 14:59
PROVIDERS: PCP Nurse Practitioner Family; Visit Provider Preventive Medicine Occupational Medicine
DX: G57.82 Other specified mononeuropathies of left lower limb (principal)
CPT/HCPCS: 64450; J0665; J1010

== ENCOUNTER 2024-04-11 02:28 | Outpatient (CLI) | payer OTHER, SELFPAY ==
--- NOTE | 2024-04-11 06:45 | DI.RAD_ITS ---
Exam(s) XR ANKLE LT COMPLETE EXAM: XR ANKLE LT COMPLETE CLINICAL HISTORY: Left ankle pain,m25.572 TECHNIQUE: 2D digital imaging was performed. Three views. COMPARISON: CR XR FOOT LT COMPLETE from 04/11/2024 FINDINGS: BONES: No acute fracture is present. No bony destructive lesion is seen. JOINTS:The ankle mortise is normally aligned. Mild narrowing of the medial tibiotalar joint. Minim al periarticular spurring. SOFT TISSUE: Normal. IMPRESSION: Minimal degenerative changes. DATA REPOSITORY: RADIATION DOSE DELIVERED:
--- NOTE | 2024-04-11 06:45 | DI.RAD_ITS ---
Exam(s) XR FOOT LT COMPLETE EXAM: XR FOOT LT COMPLETE CLINICAL HISTORY: Left foot pain,m79.672. TECHNIQUE: 2D digital imaging was performed. Three views. COMPARISON: CR XR FOOT RT COMPLETE from 10/13/2020 MR MRI LEFT FOOT W/WO from 01/06/2021 FINDINGS: BONES: No acute fracture is present. No bony destructive lesion is seen. Chronic appearing deformit ies of the 1st metatarsal head and neck of the 2nd metatarsal. JOINTS: No dislocation present. Minimal degenerative changes. SOFT TISSUE: Normal. IMPRESSION: No acute abnormality. DATA REPOSITORY: RADIATION DOSE DELIVERED:
== END 2024-04-11 02:48 ==
LOC: DI 02:28
PROVIDERS: PCP Nurse Practitioner Family; Visit Provider Podiatrist
DX: M25.572 Pain in left ankle and joints of left foot (principal)
CPT/HCPCS: 73610; 73630

== ENCOUNTER 2024-04-17 02:35 | Outpatient (CLI) | payer OTHER, SELFPAY | END 2024-04-17 02:36 | disposition home or self-care (01) | LOC: LBO 02:35 | PROVIDERS: PCP Nurse Practitioner Family; Visit Provider Student in an Organized Health Care Education/Training Program | DX: K56.699 Other intestinal obstruction unspecified as to partial versus complete obstruction (principal) | CPT/HCPCS: 36415; 86850; 86900; 86901 ==

== ENCOUNTER 2024-04-19 06:22 | Inpatient (IN) | payer OTHER, SELFPAY ==
[2024-04-19] VITALS (12 sets, daily range): BP systolic 119–160; BP diastolic 62–88; PULSE 71–97; RESP 12–20; TEMP 36–37.7; O2SAT 91–98; BMI 30.6
--- NOTE | 2024-04-19 07:13 | W.ANESPRE ---
General Info Date of Service Date Performed: 04/19/24 Height: 5 ft 5 in Weight: 83.4 kg Body Mass Index (BMI): 30.6 Surgical Procedure: Operation Date: 04/19/24 07:50 Proposed Procedure Side Surgeon p Laparoscopic Sigmoid resection, Cysto and stent Andrae Phipps MD s Cystoscopy with Stent Insertion Bilateral Stevenson Wise MD Actual Procedure Side Surgeon p Laparoscopic Sigmoid resection, Cysto and stent Adnrae Phipps MD s Cystoscopy with Stent Insertion Bilateral Stevensno Wise MD Pre-Op Diagnosis Post-Op Diagnosis Stricture of sigmoid colon Meds Allergies and Home Medications Allergies Allergy/AdvReac Type Severity Reaction Status Date / Time Penicillins Allergy Severe SKIN RASH Verified 04/19/24 06:28 Home Medication ?Medication ?Instructions ?Recorded trazodone 150 mg tablet 150 mg PO HS PRN insomnia #90 tabs 06/29/21 montelukast 10 mg tablet 10 mg PO DAILY #90 tabs 04/20/23 (Singulair) diclofenac sodium 1 % topical gel 4 g topical QID PRN 04/25/23 (Arthritis Pain (diclofenac)) hydrochlorothiazide 12.5 mg tablet See Rx Instructions .Route 09/26/23 .COMPLEX #90 tabs ipratropium 0.5 mg-albuterol 3 mg 3 ml inhalation Q4H PRN wheezing 09/26/23 (2.5 mg base)/3 mL nebulization #90 mL soln gabapentin 300 mg capsule See Rx Instructions .Route 11/23/23 .COMPLEX #180 caps albuterol sulfate 90 mcg/actuation 2 puff inhalation QID PRN 01/09/24 aerosol inhaler bronchospasm #8.5 grams budesonide 160 mcg-glycopyr 9 2 inh inhalation QAM AND QPM #10.7 02/17/24 mcg-formot 4.8 mcg/actuation HFA grams inhaler (Breztri Aerosphere) clonazepam 0.5 mg disintegrating 0.5 mg PO DAILY PRN anxiety #28 03/19/24 tablet tabs metformin 500 mg tablet 500 mg PO BID #180 tabs 03/19/24 oxycodone-acetaminophen 5 mg-325 1 tab PO BID PRN pain #56 tabs 03/19/24 mg tablet (Percocet) bisacodyl 5 mg tablet,delayed 5 mg PO ONCE colonscopy bowel prep 03/21/24 release (Dulcolax (bisacodyl)) #8 tabs metronidazole 500 mg tablet 500 mg PO .COMPLEX #8 tabs 03/21/24 ondansetron HCl 8 mg tablet 8 mg PO Q12H #3 tabs 03/21/24 polyethylene glycol 3350 17 238 g PO ONCE colonoscopy prep 03/21/24 gram/dose oral powder #238 grams neomycin 500 mg tablet 500 mg PO .COMPLEX #8 tabs 04/09/24 multivitamin 1 tab PO DAILY 04/16/24 Current Visit Medications: Current Medications Generic Name Dose Route Start Last Admin Trade Name Freq PRN Reason Stop Dose Admin Heparin Sodium (Porcine) 5,000 units 04/19/24 06:00 Heparin 5,000 Units/Ml Vial SC 04/19/24 16:00 PREOP [facility] Ringer's Solution 1,000 mls @ 75 mls/hr 04/19/24 06:00 IV 05/18/24 23:59 INFUSION HAZEL Metronidazole 500 mg in 100 mls @ 100 mls/hr 04/19/24 06:00 Flagyl IVPB 04/19/24 16:00 PREOP [facility] IV Miscellaneous Supplies 1 each 04/19/24 06:00 Iv Access IV 05/18/24 23:59 DIRECTED HAZEL Sodium Chloride 0 ml 04/19/24 06:00 Normal Saline Flush 10 Ml Syr IV 05/18/24 23:59 PRN PRN Sodium Chloride 0 ml 04/19/24 06:00 Normal Saline 10 Ml Vial IJ 05/18/24 23:59 DIRECTED PRN Sterile Water 0 ml 04/19/24 06:00 Water,Injection,Sterile 10 Ml Vial IJ 05/18/24 23:59 DIRECTED PRN PFSH Active Problems Active Problems: Problem Status Onset Code Paresthesia of left foot Acute R20.2 Foreign body of left ankle Acute S90.552A Peroneal tendinitis of left lower extremity Acute M76.72 Stricture of sigmoid colon Acute K56.699 Obesity (BMI 30.0-34.9) Acute E66.9 Muscle cramps Acute R25.2 Easy bruising Acute R23.3 Sural neuropathy Acute G57.90 COPD (chronic obstructive pulmonary disease) Chronic 06/07/11 J44.9 Hypertension Chronic I10 Left ankle pain Acute M25.572 CRPS (complex regional pain syndrome) Acute Left ankle instability Acute M25.372 Foot pain, left Acute M79.672 Infection Acute B99.9 Ischial bursitis of left side Acute M70.72 Metatarsalgia of both feet Acute M77.41, M77.42 Newsome's neuroma of right foot Acute G57.61 Buttock pain Acute M79.18 Plantar fascial fibromatosis of left foot Acute M72.2 Buttock pain Acute M79.18 Speech disturbance Chronic 07/28/15 Diverticula of colon Chronic K57.30 Spondylolisthesis at L5-S1 level Chronic 04/25/13 M43.17 Pulmonary hypertension Chronic 12/22/17 I27.20 Polycythemia Chronic 03/15/16 D75.1 Neck pain Chronic 01/10/15 M54.2 Insomnia Chronic 06/14/16 G47.00 Headache Chronic 04/25/13 R51 Essential hypertension Chronic I10 Depressive disorder Chronic 11/22/12 F32.9 Chronic pain Chronic 02/28/15 G89.29 Anxiety Chronic 12/26/12 F41.9 Medical History Medical History Hyperplastic colon polyp (~01/2024) Leg wound, left Colorectal polyps Diverticulosis Memory impairment of gradual onset pt. states r/t to a mild concussion 2014, but memory has returned and has had no issues. Shortness of breath pt. states she was overmedicated on steroids, and since been weened off and states her breathing is perfect. Unspecified injury of head, sequela 07/28/15 continue post-concussive headaches Lipoma of axilla 07/28/15 left. 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 states she bruises really easily if she could have minimal bandages Pt. states concern with intubation and her cervical spinal fusion Surgical History Surgical History History of ankle surgery Bilat Status post excision of Newsome's neuroma S/P colonoscopy (~01/2024) Hyperplastic polyps x2. Tubular adenoma x2. Sessile serrated adenoma x1. Status post cervical spinal arthrodesis History of bilateral tubal ligation H/O reduction mammoplasty S/P bunionectomy B/L H/O skin graft for lumbar fusion (scars B/L flanks/buttocks H/O spinal fusion 07/25/99 L5-S1 cervical fusion 03/2014 C5-[address] Dobson, Teresita ; 06/11/15 SKIN GRAFT FOR LUMBAR FUSION (SCARS B/L FLANKS/BUTTOCKS) LIVER BX AXILLARY MASS BX Tobacco Smoking/Tobacco Use Status: Former Tobacco Use Passive smoking exposure: No Second hand exposure: Yes Alcohol Alcohol Intake: former Substance Use Substance use: Occasionally Substance use type: marijuana Details: She consumes THC drops at night. Vital Signs and Lab Results Vital Signs Most Recent Vital Signs in EMR: Most Recent Vital Signs Temp Pulse Resp BP Pulse Ox 36.4 C L 97 H 16 150/88 H 93 04/19/24 06:33 04/19/24 06:33 04/19/24 06:33 04/19/24 06:33 04/19/24 06:33 Lab Results Blood Type / Crossmatch: Antibody Screen NEGATIVE 04/17/24 Complete Blood Count: No Data to Display Complete Metabolic Panel: No Data to Display Liver Function Panel: No Data to Display Coagulation Panel: No Data to Display Cardiac Panel: No Data to Display Arterial Blood Gas: No Data to Display Venous Blood Gas: No Data to Display Pancreas Panel: No Data to Display Thyroid Panel: No Data to Display Infectious Disease: No Data to Display Blood Cultures: No Data to Display Toxicology Panel: No Data to Display Imaging and Studies Imaging and Studies Study information below may be from another EMR and interpreted by another provider. Please see original notes in EMR for more complete details. EKG Summary: 04/20 Sinus rhythm...normal P axis, V-rate 60- 99 Probable left atrial enlargement...P >50mS, <-0.10mV V1 Echocardiogram Summary: 03/27/19 1. Left ventricle: The cavity size was normal. Systolic function was normal. The estimated ejection fraction was 60-65%. There was no evidence of elevated ventricular filling pressure by Doppler parameters. 2. Aorta: Ascending aortic diameter: 3.9cm (S). 3. Ascending aorta: The ascending aorta was moderately dilated. 4. Right ventricle: The cavity size was normal. Wall thickness was normal. Systolic function was normal. 5. Pulmonary arteries: Pulmonary systolic pressure was in the range of 20mm Hg to 30mm Hg. 6. Inferior vena cava: The vessel was patent and normal in size. The respirophasic diameter changes were in the normal range (greater than or equal to 50%), consistent with normal central venous pressure. Anesthesia Assessment and Plan Anesthesia History Personal History: No History of Anesthesia Complications Family History: No Family History of Anesthesia Complications Exercise Tolerance Exercise Tolerance: Metabolic Equivalents>4 Cardiac & Pulmonary Exam Cardiac Exam: Normal S1/S2 Heart Sounds Pulmonary Exam: Clear Bilateral Breath Sounds Implantable Cardiac Device Does patient have a Pacemaker or an ICD?: No Airway Exam Known Difficult Airway: No Mallampati Class: 1 Mouth Opening: Normal (> 3cm) Thyromental Distance: Greater than 3 cm Neck Range of Motion: Full ROM and History of Cervical Fusion Neck Circumference: Normal Teeth Condition: Removable Dentures/Plates Upper ASA Classification ASA Score: ASA 3 Emergency Case?: No NPO Status NPO Status: NPO Clears >2 hours, Solids >8 hours Anesthesia Plan Resuscitation Status: Full Code Anesthesia Technique: General Anesthesia Airway Planned: Endotracheal Tube Monitors Used: Standard Monitors and SedLine
[2024-04-19] MEDS: Heparin 5,000 UNITS/ML VIAL 5000 UNITS SC ×3 (07:33→23:57)
[2024-04-19] MEDS: metroNIDAZOLE 500 MG/100 ML BAG 100 MG IVPB (07:33)
[2024-04-19] MEDS: Lactated Ringers 1,000 ML 75 ML IV ×2 (07:33→14:05)
[2024-04-19] MEDS: Lidocaine 2% Jelly 6 ML SYR (08:30)
--- NOTE | 2024-04-19 08:45 | ROE_ITS ---
Date of service: 04/19/24 Time of Service: 08:45 Operative Note Operative Note DATE OF PROCEDURE: 04/19/24 PRE-OP DIAGNOSIS: Sigmoid colon stricture POST-OP DIAGNOSIS: same PROCEDURE: Cystoscopy, urethral dilation, insert left ureteral stent SURGEON: Stevenson Wise ANESTHESIA TYPE: Local By Surgeon and General LMA/ETT Refer to Anesthesia Record ESTIMATED BLOOD LOSS: 5 PATHOLOGY: none sent COMPLICATIONS: None Patient was transported to: no change Patient's condition: stable Implants: 5 Citizen [place] left ureteral access catheter 16 [place] Mcfarlane catheter with 10 cc of sterile water in the balloon Indications: This is a 63-year-old woman who has a history of a sigmoid stricture. She is due to have a colon resection today. I have been asked to place a left ureteral stent to help with ureteral identification during the procedure Findings: Unable to pass a 22 [place] cystoscope through the urethral meatus, so the meatus was dilated to size 24 [place] Normal bladder Procedure Description: The patient was brought to the operating room on 04/19/2024. After successful induction of general anesthesia, she was placed in the dorsal lithotomy position. Her genitalia was prepped and draped. 2% Xylocaine jelly was passed through the urethra to act as a local anesthetic. Initially, I was unable to pass a 22 [place] cystoscope through the urethra, so we dilated the urethral meatus up to 24 [place] using urethral dilators. The scope could then be passed quite easily. The bladder was inspected with the 30 degree lens. Both ureteral orifice ease appeared normal with no blood coming from either side. No papillary or nodular lesions were found within the bladder. The left ureteral orifice was cannulated with a 5 [place] ureteral access catheter and the catheter was advanced until resistance was met. The cystoscope was removed leaving the ureteral catheter in place. I then passed a 16 [place] Mcfarlane catheter through the urethra into the bladder. The catheter balloon was inflated with 10 cc of sterile water. I brought the ureteral access catheter into the lumen of the Mcfarlane catheter so both catheters were drained into the same urinary collection bag. The 2 catheters were secured to each other using Steri-Strips. The patient tolerated this procedure well. She remained in the operating room for the colon resection portion of her surgery.
[2024-04-19] MEDS: Bupivacaine LIPOSOME/PF 133 MG/10 ML VIAL IJ (08:59)
[2024-04-19] MEDS: Bupivacaine 0.25% Pres-Free 10 ML VIAL (09:03)
[2024-04-19] MEDS: Bupivacaine 0.25% Pres-Free 30 ML VIAL (09:03)
[2024-04-19] MEDS: Normal Saline 20 ML VIAL (09:04)
[2024-04-19] MEDS: Indocyanine green 25 MG VIAL (10:13)
--- NOTE | 2024-04-19 10:35 | BOWEL_PTH ---
PATIENT: Kandi Du LOC: U#:[id number] AGE/SX: 63/F ROOM: 207 RE04/19/[address]: Andrae Phipps : 1960 BED: A DIS: 04/22/2024 SPEC #: [id number] RECD: 04/19/24 13:17 STATUS: DANILO REQ #: [id number] JAYA: 04/19/24 10:[address]: Andrae Phipps DEPT: Surgical Specimen RECD BY: Myranda Reeder ENTERED: 04/19/24 13:18 SP TYPE: Bowel OTHR DR: Anne Marie Ruth, ARNULFO Tissues: 1 - BOWEL RESECTION(OTHER) Procedures: GROSS AND MICRO LEVEL 5 Comments: [id number]
--- NOTE | 2024-04-19 12:59 | ROE_ITS ---
Date of service: 04/19/24 Time of Service: 13:09 Operative Note Operative Note DATE OF PROCEDURE: 04/19/24 POST-OP DIAGNOSIS: same ANESTHESIA TYPE: Local By Surgeon and General LMA/ETT Refer to Anesthesia Record ESTIMATED BLOOD LOSS: 5 PATHOLOGY: none sent Patient was transported to: no change Patient's condition: stable Procedure Description: Procedures performed: 1. Laparoscopic bilateral TAP block 2. Laparoscopic low anterior resection (rectosigmoid colectomy) 3. ICG fluorescence imaging 4. Laparoscopic-assisted Proctocolostomy 5. Flexible colonoscopy leak test Preoperative Diagnosis: Sigmoid Diverticulosis Fibrosis and Stricture Postoperative Diagnosis: same Surgeon: Lisa Phipps Assist: Paola Anesthesia: General Anesthesiologist: Sergey Indication: Patient has chronic pelvic abdominal discomfort, bloating and difficulty have a bowel movement. Findings: ICG confirmed good perfusion to the proximal resection. Flexible anastomic leak test was negative - anastomosis grossly hemostatic - mucosa pink prox and dist. Complications: None Estimated Blood Loss: 50 Specimens removed: 1. Rectosigmoid colon(low anterior resection) Grafts or implants: none Procedure in detail: Written consent was obtained from the patient who was in agreement with the risks, the benefits and the indications for the procedure. The patient was taken to the operating suite and laid supine on the operating table with arms out. IV antibiotics had been administered and 5000 units of heparin subcutaneous given. Venodynes were in place. General anesthesia was administered which was tolerated very well. Urology placed a left ureteral stent and Mcfarlane catheter. See their procedure note for details. Next we tucked the patient's arms and placed the patient in lithotomy. We then prepped and draped the abdomen, the pelvis and perineum and perianal region in sterile fashion. A timeout was performed. When we were all in agreement we began the procedure. Local anesthetic was injected. Within the [facility] a small stab incision was made and a 5 mm Optiview trocar was used to enter into the abdomen under direct visualization. The patient has an existing very small umbilical hernia at this location. The trocar was placed through it. The liver was inspected and did not appear cirrhotic. No visible lesions. Two more 5mm trochars were placed across the abdomen under visualization. Under direct visualization a laparoscopic bilateral TAP block was administered using a diluted mixture of Exparel and 1/4%. The patient was placed in Trendelenburg and we had good visualization of the pelvis and sigmoid colon. I used a combined approach, both lateral to medial & medial to lateral dissection and was able to freely mobilize the sigmoid colon, proximal rectum as well as the descending colon off of the left lateral sidewall. We released the white line of Toldt all the way to the level of the splenic flexure. Next I created a window through the mesocolon. I was well away from the retroperitoneum and the left ureter was left alone in the RP. We dissected inferiorly all the way to the bowel wall circumferentially creating a nice window for the stapler. Next I took the rest of the mesocolon superiorly including the LIANNE pedicle. This was all done with the LigaSure. Satisfied with a complete dissection, we created a Pfannenstiel incision in standard fashion. A wound protector was placed. A 12 mm port was used through t he wound protractor to facilitate the stapler. I then divided the rectum just distal to the rectosigmoid junction with the laparoscopic stapler. Any remaining mesenteric attachments were taken down with the LigaSure. We had complete mobilization and we then delivered the distal end of the sigmoid through the wound protector. The specimen was inspected and palpated. We found a soft portion of descending colon which was an excellent site for our proximal side of the colorectal anastomosis. I sharply divided the colon at this location. There was good bleeding of the mucosa and it was pink. The specimen was passed off the back table. At this point ICG fluorescence imaging was performed. Good perfusion of the descending colon was objectively identified all the way to the level at which I had transected. Satisfied that thecolonic mucosa was pink and healthy and had adequate bleeding. The anvil was placed in standard fashion and a pursestring suture placed and tied. This was then placed back into the peritoneal cavity and confirmed on laparoscopy to reach without any significant tension. In particular, it lay draped over the sacral promontory without any difficulty while the patient was in Trendelenburg. We used the dilators and were able to facilitate a #28 through the anus and gently up to the rectal stump without difficulty. The proximal end for the anastomosis, which was the descending colon, lay nicely over the promontory without any tension, and was able to reach the rectal stump without difficulty. We had some difficulty with the #28 EEA stapler passing and this created a serosal tear at the rectal stump. I was unhappy with how this appeared and I decided to resect a centimeter more distal in order to have fresh/new rectal stump. This was done in a usual fashion and a 1 cm segment was removed creating a new staple line. At this point because of the difficulty I had passing the #28 EEA stapler, I circumferentially mobilized the rectum by dividing all of the peritoneal attachments at the level of the peritoneal reflection. This really helped by allowing everything to straighten out and this time the sizers were able to be advanced much easier. Because I had taken more of the rectum, I was now concerned that I might not have enough distance to reach without tension. I performed further mobilization at the level of the splenic flexure and I also took down all of the peritoneal lining of the mesocolon. There were a few locations where the mesocolon was tethered but there was no named vasculature or vessels at that location and I divided the ensuring that the colon was still surviving off of the marginal artery at that location. I wanted to be sure I had not inadvertently compromised the colon blood supply so I injected more ICG and confirmed that I still had good/excellent perfusion at my anvil. This would give me another couple of centimeters and allowed my distal colon and anvil to lay a near the rectal stump without any tension. Next, in standard fashion we then created our coloproctostomy using the EEA stapler. The anastomosis looked excellent. There was good hemostasis. We introduced a flexible colonoscope and assessed the anastomosis and the mucosa. All were intact, hemostatic and mucosa pink and viable on both sides. No active bleeding seen. We insufflated with the colonoscope and leak test was negative. For the final time I injected ICG and confirmed that good blood flow existed all the way down to the anastomosis. Of course on the rectal side of the anastomosis there was excellent flow as well. Hemostasis was excellent. There was no tension. All 5 mm trochars were removed. The Pfannenstiel incision was closed in layers. We used lemuel to close the skin. Sterile dressings were placed. The Mcfarlane and stent were removed. The sponge, instrument and sharps count was correct x3 at the end of the procedure. The patient tolerated the procedure well and was taken to the PACU in hemodynamically stable condition.
[2024-04-19] MEDS: fentaNYL 100 MCG/2 ML VIAL IVP ×3 (13:04→13:20)
[2024-04-19] MEDS: HYDROmorphone 2 MG/ML SYR IVP (13:25)
--- NOTE | 2024-04-19 13:52 | W.ANESPOSTOP ---
Postoperative Evaluation Date, Time and Location Date Performed: 04/19/24 Time Performed: 13:52 Patient Location: PACU Vital Signs Most Recent Imported Vital Signs: Most Recent Vital Signs Temp Pulse Resp BP Pulse Ox 36.4 C L 71 12 119/73 92 04/19/24 13:05 04/19/24 13:35 04/19/24 13:35 04/19/24 13:35 04/19/24 13:35 Pain Score Most Recent Pain Score: Most Recent Pain Score Pain Level 10 04/19/24 13:35 Assessment Mental Status: Awake (Alert & Oriented to Patient Baseline) Airway and Respiratory Function: Patent airway with normal (patient baseline) respiratory exam Cardiovascular Function: Hemodynamically Stable Hydration Status: Adequately Hydrated Nausea & Vomiting: No Nausea or Vomiting Pain: Pain is tolerable per patient (Reports rectal pressure. Not affected by pain medication) Peripheral Nerve Block: Patient did not receive a nerve block
[2024-04-19] MEDS: ACETAMINOPHEN 1,000 MG/100 ML BTL 400 MG IVPB ×2 (14:39→20:07)
--- NOTE | 2024-04-19 17:25 | W.PC.ACHO ---
Registration Status: Primary Language: Preferred Language: Medical / Surgical History (Last Reviewed 04/19/24 @ 06:43 by Rosalia Cardoza, YOHAN) Hyperplastic colon polyp (~01/2024) Leg wound, left Colorectal polyps Diverticulosis Memory impairment of gradual onset Shortness of breath Unspecified injury of head, sequela Lipoma of axilla Keratoacanthoma of chin Unspecified injury of right shoulder and upper arm, subsequent encounter Right hand pain (Last Reviewed 04/19/24 @ 06:43 by Rosalia Cardoza, YOHAN) History of ankle surgery Status post excision of Newsome's neuroma S/P colonoscopy (~01/2024) Status post cervical spinal arthrodesis History of bilateral tubal ligation H/O reduction mammoplasty S/P bunionectomy H/O skin graft H/O spinal fusion cervical fusion SKIN GRAFT LIVER BX AXILLARY MASS BX Most Recent Vital Signs Temperature 36.2 C L 04/19/24 16:00 Temperature Source Temporal Artery Scan 04/19/24 16:00 Pulse 88 04/19/24 16:00 Pulse Rhythm Regular 04/19/24 06:33 Respiratory Rate 20 04/19/24 16:00 Respiratory Depth Deep 04/19/24 06:33 Blood Pressure 138/83 04/19/24 16:00 Pulse Oximetry 92 04/19/24 16:00 Respiratory End-tidal CO2 45 04/19/24 13:35 Oxygen Delivery Method Nasal Cannula 04/19/24 16:00 Oxygen Flow Rate 2 04/19/24 16:00 Pain Level 9 04/19/24 14:47 Allergies Penicillins Allergy (Severe, Verified 04/19/24 06:28) SKIN RASH years ago Active Medications Generic Name Dose Route Start Last Admin Trade Name Freq PRN Reason Stop Dose Admin Heparin Sodium (Porcine) 5,000 units 04/19/24 16:00 04/19/24 15:40 Heparin 5,000 Units/Ml Vial SC 5,000 units Q8H HAZEL Administration Ringer's Solution 1,000 mls @ 75 mls/hr 04/19/24 06:00 04/19/24 14:05 IV 05/18/24 23:59 75 mls/hr INFUSION HAZEL Administration Acetaminophen 1,000 mg in 100 mls @ 400 mls/hr 04/19/24 14:00 04/19/24 14:39 Ofirmev IVPB 400 mls/hr Q6H HAZEL Administration IV IV Catheter Type [Left Forearm Peripheral IV ] IV Catheter Gauge [Left 20 Forearm] Diet Orders Category Date Time Status Post Op Diet [DIET] Nutrition 04/19/24 Lunch Active Intake and Output - 24 Hour Total 03/30/24 10:35 thru 04/19/24 16:12 Intake Total 1100 Output Total 450 Balance 650 Weight 83.4 kg Intake: IV 1100 Output: Urine 450 Other: Urine Color Yellow Urine Appearance Clear Comment pt thought she still had the guardado in and was incontinent. Emesis Description None Voiding Methods Incontinent Urinary Catheter Urinary Catheter Date of 04/19/24 Insertion [Urethral (Guardado)] v v v v v v v v v Sending and/or Receiving Nurses: Please use comment section below to note any information pertinent to the patient hand-off not included above. Information / Comments: Report received from:
--- NOTE | 2024-04-19 17:29 | W.PC.ACHO ---
Registration Status: Primary Language: Preferred Language: Medical / Surgical History (Last Reviewed 04/19/24 @ 06:43 by Rosalia Cardoza, YOHAN) Hyperplastic colon polyp (~01/2024) Leg wound, left Colorectal polyps Diverticulosis Memory impairment of gradual onset Shortness of breath Unspecified injury of head, sequela Lipoma of axilla Keratoacanthoma of chin Unspecified injury of right shoulder and upper arm, subsequent encounter Right hand pain (Last Reviewed 04/19/24 @ 06:43 by Rosalia Cardoza, YOHAN) History of ankle surgery Status post excision of Newsome's neuroma S/P colonoscopy (~01/2024) Status post cervical spinal arthrodesis History of bilateral tubal ligation H/O reduction mammoplasty S/P bunionectomy H/O skin graft H/O spinal fusion cervical fusion SKIN GRAFT LIVER BX AXILLARY MASS BX Most Recent Vital Signs Temperature 36.2 C L 04/19/24 16:00 Temperature Source Temporal Artery Scan 04/19/24 16:00 Pulse 88 04/19/24 16:00 Pulse Rhythm Regular 04/19/24 06:33 Respiratory Rate 20 04/19/24 16:00 Respiratory Depth Deep 04/19/24 06:33 Blood Pressure 138/83 04/19/24 16:00 Pulse Oximetry 92 04/19/24 16:00 Respiratory End-tidal CO2 45 04/19/24 13:35 Oxygen Delivery Method Nasal Cannula 04/19/24 16:00 Oxygen Flow Rate 2 04/19/24 16:00 Pain Level 9 04/19/24 14:47 Allergies Penicillins Allergy (Severe, Verified 04/19/24 06:28) SKIN RASH years ago Active Medications Generic Name Dose Route Start Last Admin Trade Name Freq PRN Reason Stop Dose Admin Heparin Sodium (Porcine) 5,000 units 04/19/24 16:00 04/19/24 15:40 Heparin 5,000 Units/Ml Vial SC 5,000 units Q8H HAZEL Administration Ringer's Solution 1,000 mls @ 75 mls/hr 04/19/24 06:00 04/19/24 14:05 IV 05/18/24 23:59 75 mls/hr INFUSION HAZEL Administration Acetaminophen 1,000 mg in 100 mls @ 400 mls/hr 04/19/24 14:00 04/19/24 14:39 Ofirmev IVPB 400 mls/hr Q6H HAZEL Administration IV IV Catheter Type [Left Forearm Peripheral IV ] IV Catheter Gauge [Left 20 Forearm] Diet Orders Category Date Time Status Post Op Diet [DIET] Nutrition 04/19/24 Lunch Active Intake and Output - 24 Hour Total 03/30/24 10:35 thru 04/19/24 16:12 Intake Total 1100 Output Total 450 Balance 650 Weight 83.4 kg Intake: IV 1100 Output: Urine 450 Other: Urine Color Yellow Urine Appearance Clear Comment pt thought she still had the guardado in and was incontinent. Emesis Description None Voiding Methods Incontinent Urinary Catheter Urinary Catheter Date of 04/19/24 Insertion [Urethral (Guardado)] v v v v v v v v v Sending and/or Receiving Nurses: Please use comment section below to note any information pertinent to the patient hand-off not included above. Information / Comments: Report taken by Nurse Rubin from PACU Nurse Juvencio Patino. Post digmoid resection, cystoscopy & urethral dilation, insert left urteral stent and was removed when the guardado was discontinued.nbAll quesions answered. Report received from:
[2024-04-19] MEDS: MORPHine 2 MG/ML SYR IVP ×2 (19:57→23:56)
[2024-04-19] MEDS: Gabapentin 300 MG CAP PO (20:07)
[2024-04-19] MEDS: Pt's Own Budesonide-Glycopyr-Formoterol [Breztri Aerosphere] Inhaler 2 EACH IH (20:09)
[2024-04-19] MEDS: oxyCODONE 5 MG TAB PO (21:42)
[2024-04-20] VITALS (9 sets, daily range): BP systolic 104–144; BP diastolic 61–92; PULSE 65–83; RESP 14–20; TEMP 36.6–37.5; O2SAT 89–97
[2024-04-20] MEDS: MORPHine 2 MG/ML SYR IVP ×2 (02:16→06:27)
[2024-04-20] MEDS: ACETAMINOPHEN 1,000 MG/100 ML BTL 400 MG IVPB ×4 (02:17→20:38)
[2024-04-20 07:21] LABS: Anion Gap 4.3 mmol/L (3-11); BUN 3 mg/dL (7-18); CO2 29.7 mmol/L (21.0-32.0); CREATININE 0.7 mg/dL (0.55-1.02); Calcium 9.1 mg/dL (8.5-10.1); Chloride 103 mmol/L (98-107); Estimated GFR 97.12 (mL/min/1.73m2); Glucose 108 mg/dL (74-106); Potassium 3.8 mmol/L (3.5-5.1); Sodium 137 mmol/L (136-145)
--- NOTE | 2024-04-20 07:26 | PGE_ITS ---
Date of Service Date of service: 04/20/24 Time of Service: 07:26 Assessment and Plan Assessment and plan (1) Status post laparoscopic-assisted sigmoidectomy: Status: Acute Assessment and plan: Edith seems to be making nice recovery from her sigmoid colectomy yesterday. I will increase her morphine a little bit this morning, and add some ketorolac. Like to see her up and moving around a little bit. Subjective Subjective Interval history since last seen: Edith looks pretty good this morning, although she does complain of some difficulty managing pain through the night. She gets a little bit of relief with the morphine, but not enough to cover the pain. She passed some flatus, and had a small mostly liquid bowel movement this morning. Exam GI Other: Her abdomen is soft and nondistended. Bandages are all clean. Objective Last Vital Signs Temp 98.6 F 04/20/24 06:28 Pulse 81 04/20/24 06:28 Resp 20 04/20/24 06:28 BP 140/83 04/20/24 06:28 Pulse Ox 94 04/20/24 06:28 Laboratory Results - last 24 hr 04/20/24 06:37 Sodium 137 Potassium 3.8 Chloride 103 Carbon Dioxide 29.7 Anion Gap 4.3 BUN 3 L Creatinine 0.7 Est GFR (CKD-EPI 2020) 97.12 Glucose 108 H Calcium 9.1 Time Spent with Patient Time Spent with Patient: 25-34 minutes Time was spent: preparing to see the patient(eg.review tests), ordering medicati ons,tests, procedures, counseling the patient and care coordination
[2024-04-20] MEDS: Pt's Own Budesonide-Glycopyr-Formoterol [Breztri Aerosphere] Inhaler 2 EACH IH ×2 (08:02→20:57)
[2024-04-20] MEDS: Ketorolac 30 MG/ML VIAL IVP ×2 (08:42→19:55)
[2024-04-20] MEDS: Normal Saline Flush 10 ML SYR IV ×3 (08:43→15:09)
[2024-04-20] MEDS: Gabapentin 300 MG CAP PO ×2 (08:44→20:38)
[2024-04-20] MEDS: Montelukast 10 MG TAB PO (08:44)
[2024-04-20] MEDS: Heparin 5,000 UNITS/ML VIAL 5000 UNITS SC ×2 (08:45→16:33)
--- NOTE | 2024-04-20 09:00 | INITIAL_ITS ---
Date of service: 04/20/24 Time of Service: 09:00 Care Management Initial Assmt Initial Assessment Reason for Hospitalization: sigmoid colectomy Functional Status/Living Situation Patient Presentation: Edith was sitting up in bed when CM met with her. She stated that she continues to have a fair amount of pain and had just asked her nurse for pain medication. Edith was admitted yesterday and had a laparoscopic sigmoid resection for diverticulosis. She informed that even though it was laparoscopic, she has a large incision on her lower abdomen. Edith reported that she also has chronic regional pain syndrome and has gone to the pain clinic. She is on medication for the pain in her ankle but was unable to recall what it is. Edith is and lives in a single family home in [facility] with her Chaitanya. She has 2 children who live locally and a large supportive extended family. Edith shared that she comes from a family of 12, so has a lot of natural support. She denied the need for any services at home . She does use a walker but does not receive any community services.. 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) Instrumental Activities of Daily Living (ADLs): Independent Activities/Hobbies/SocialSupport: swims for exercise and enjoyment Medications Medication Management: No Issues/Barriers identified Physical Functioning/Mobility Assistive Device: walker Advance Directives Advance Directives: Do you have an Advance Directive: Y 12/01/16 14:59 AD On File at [facility]: Y 12/08/17 09:49 Date Asked 10/05/18 01/23/24 14:39 AD Date Reviewed 04/10/24 04/12/24 08:46 COLST On File at [facility] COLST Date Scanned Code Status Resuscitation Status Full Code Insurance Coverage/Financial Issues [facility] Care Team Visit Care Team Role Provider Type Anne Marie Ruth NP Primary Care Provider NURSE PRACTITIONER Andrae Phipps MD Admit Provider [facility] STAFF PHYSICIAN Attending Provider Discharge Potential Discharge Needs: Surgical F/U Appt Anticipated Barriers to Discharge: None Identified Patient/Family Education Needs: Review discharge instructions, discuss Ask Me Three Transportation: Private vehicle Plan: Anticipatepatty will be discharged home with no new services. She will follow up with her surgeon and plan of care and transport with family. CM will follow and continue to support discharge planning considerations. PFSH All Active Problems (Updated 04/20/24 @ 07:27 by Chaitanya Mackenzie MD) Status post laparoscopic-assisted sigmoidectomy (Acute ~03/2024) Paresthesia of left foot (Acute) Foreign body of left ankle (Acute) Peroneal tendinitis of left lower extremity (Acute) Obesity (BMI 30.0-34.9) (Acute) Muscle cramps (Acute) lower extremities, forearms and toes and hands Easy bruising (Acute) Sural neuropathy (Acute) COPD (chronic obstructive pulmonary disease) (Chronic 06/07/11) hypoxia, exacerbation [facility]; hypoxia post op neck 03/2014 Hypertension (Chronic) Left ankle pain (Acute) CRPS (complex regional pain syndrome) (Acute) Left ankle instability (Acute) Foot pain, left (Acute) Infection (Acute) Ischial bursitis of left side (Acute) Metatarsalgia of both feet (Acute) Newsome's neuroma of right foot (Acute) Buttock pain (Acute) Plantar fascial fibromatosis of left foot (Acute) Buttock pain (Acute) Speech disturbance (Chronic 07/28/15) Spondylolisthesis at L5-S1 level (Chronic 04/25/13) MRI, LUMBAR 1999: GRADE 1 2 LB surgeries with fusing Pulmonary hypertension (Chronic 12/22/17) Polycythemia (Chronic 03/15/16) Neck pain (Chronic 01/10/15) surgery March,, repeat with titanium plates and cadaver grafts 06/11/15 Insomnia (Chronic 06/14/16) Headache (Chronic 04/25/13) HEAD CT 2005 NORMAL Essential hypertension (Chronic) Depressive disorder (Chronic 11/22/12) Chronic pain (Chronic 02/28/15) Anxiety (Chronic 12/26/12) 11/24/17/ SYBIL 7 SCORE=20 Medical History (Updated 04/20/24 @ 07:27 by Chaitanya Mackenzie MD) Diverticula of colon Stricture of sigmoid colon Hyperplastic colon polyp (~01/2024) Leg wound, left Colorectal polyps Diverticulosis Memory impairment of gradual onset pt. states r/t to a mild concussion 2014, but memory has returned and has had no issues. Shortness of breath pt. states she was overmedicated on steroids, and since been weened off and states her breathing is perfect. Unspecified injury of head, sequela 07/28/15 continue post-concussive headaches Lipoma of axilla 07/28/15 left. 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 Tubular adenoma x2. Sessile serrated adenoma x1. Status post cervical spinal arthrodesis History of bilateral tubal ligation H/O reduction mammoplasty S/P bunionectomy B/L H/O skin graft for lumbar fusion (scars B/L flanks/buttocks H/O spinal fusion 07/25/99 L5-S1 cervical fusion 03/[address] C5-[address] Dobson, Teresita ; 06/11/15 SKIN GRAFT FOR LUMBAR FUSION (SCARS B/L FLANKS/BUTTOCKS) LIVER BX AXILLARY MASS BX Family History Mother , at age 74. Asthma Father , AGE 74 Hip fracture Alcohol abuse CAD (coronary artery disease) Alzheimer disease Heart disease Sister Heart disease Alzheimer disease Brother , AGE 70 Alcohol abuse Heart disease Hyperlipidemia Mental disorder Stroke Brother , AGE 58 CAD (coronary artery disease) Stroke Depression Brother , AGE 55 Alcohol abuse CAD (coronary artery disease) FAMILY HISTORY Essential hypertension Hyperlipidemia Sister Diabetes Hyperlipidemia Sister No problems noted. Sister Asthma Sister Asthma Brother Depression Daughter Depression Daughter Depression Asthma Social History Smoking/Tobacco Use Status: Former Tobacco Use tobacco type: cigarettes Quit Date: 07/25/10 Tobacco: How many years used: 20 Second Hand Exposure: Yes Smoking risk assessment performed?: Yes Alcohol Intake: former Drug use: Occasionally Substance use type: marijuana Details: She consumes THC drops at night. Caregiver/Support person: No Household members: spouse Housing: house Communication Needs: None Do you need help understanding health information?: Never Pets and animals: No Sexually active: No Do you think of yourself as: straight/heterosexual Current gender identity: male What is your relationship status?: How often do you talk on the phone with friends or family?: three or more times per week How often do you get together with friends or relatives?: three or more times per week Do you belong to any clubs or organized social groups?: no Panel score (0-1 are the most socially isolated patients): 2 What type of physical activity do you participate in: swimming Duration: 45-60 minutes/day Frequency: 5-6 times per week Lisa/Scientologist: [employer] Special lisa needs: No Seatbelt use: always Helmet use: Yes Helmet use: always Drive intox or ride w/intox local bulk driver: No Do you feel safe at home: Yes Do you feel safe in your relationship?: Yes
[2024-04-20] MEDS: MORPHine 4 MG/ML SYR IVP ×5 (09:12→23:09)
[2024-04-20] MEDS: hydroCHLOROthiazide 12.5 MG TAB PO (15:04)
--- NOTE | 2024-04-20 15:38 | CHAPLAIN ---
Edith was up in a chair when I visited. Her and sister were with her. Edith shared some personal history, telling me about her experience with cases Alzheimer's in her family. Edith is one of 12 siblings. Her parents within a few months of each other and two sisters have been diagnosed with Alzheimer's as well. Edith seems to be well supported by family, and comfortable being here. I explained my role and offered support.
[2024-04-20] MEDS: Lactated Ringers 1,000 ML 75 ML IV (23:10)
[2024-04-21] MEDS: ACETAMINOPHEN 1,000 MG/100 ML BTL 400 MG IVPB ×2 (01:04→08:35)
[2024-04-21] MEDS: MORPHine 4 MG/ML SYR IVP ×4 (01:06→12:35)
[2024-04-21 01:50] LABS: HCT 35.2 % (36.0-46.0); HGB 11.5 g/dL (11.2-15.7); MCH 31.9 pg (27.0-33.0); MCHC 32.7 % (32.0-36.0); MCV 98 fL (80-95); MPV 9.4 fL (8.0-11.0); Platelet Count 226 10^3/uL (130-400); RBC 3.61 10^6/uL (3.93-5.22); RDW 12.9 % (11.7-14.6); RDW-SD 46.8 fL; WBC 12.72 10^3/uL (4.4-10.8)
[2024-04-21] MEDS: Heparin 5,000 UNITS/ML VIAL 5000 UNITS SC ×3 (03:40→21:21)
[2024-04-21 07:25] VITALS: BP 111/67; PULSE 77; RESP 18; TEMP 36.9; O2SAT 96
[2024-04-21] MEDS: hydroCHLOROthiazide 12.5 MG TAB PO (08:35)
[2024-04-21] MEDS: Gabapentin 300 MG CAP PO ×2 (08:35→21:21)
[2024-04-21] MEDS: Montelukast 10 MG TAB PO (08:36)
[2024-04-21] MEDS: Pt's Own Budesonide-Glycopyr-Formoterol [Breztri Aerosphere] Inhaler 2 EACH IH ×2 (08:42→19:45)
--- NOTE | 2024-04-21 10:19 | W.PM.PROGNOT ---
Date of Service Date of service: 04/21/24 Time of Service: 10:19 Assessment and Plan Assessment and plan (1) Status post laparoscopic-assisted sigmoidectomy: Status: Acute Assessment and plan: Edith is doing very well after laparoscopic sigmoidectomy. She did have a little bit of increase in her white blood cell count yesterday, but otherwise her vital signs and clinical progression are all reassuring. I will stop the intravenous fluids today, I will also increase her home dose of oxycodone just a bit to see if we can wean off of the intravenous medications. Assuming we can keep her comfortable with an enteral regiment of medications, then I will repeat the CBC and add a CRP for tomorrow morning. If those are normal, I would anticipate discharge home at that point Subjective Subjective Interval history since last seen: Edith did very well through the night. She did have difficulty sleeping, mostly because of back pain. However, she is up this morning, sitting in the chair, and has showered a bit. Exam GI Other: Abdomen is soft and nondistended. I remove the bandages today. The incisions are all clean and dry. There is a tiny bit of ecchymosis around the suprapubic incision. Objective Last Vital Signs Temp 98.4 F 04/21/24 07:25 Pulse 77 04/21/24 07:25 Resp 18 04/21/24 07:25 BP 111/67 04/21/24 07:25 Pulse Ox 96 04/21/24 07:25 Laboratory Results - last 24 hr 04/21/24 01:40 WBC 12.72 H RBC 3.61 L Hgb 11.5 Hct 35.2 L MCV 98 H MCH 31.9 MCHC 32.7 RDW 12.9 Plt Count 226 MPV 9.4 Time Spent with Patient Time Spent with Patient: 25-34 minutes Time was spent: preparing to see the patient(eg.review tests), ordering medications,tests, procedures, counseling the patient and care coordination
[2024-04-21] MEDS: oxyCODONE 5 MG TAB 7.5 MG PO ×2 (10:54→18:03)
[2024-04-21] MEDS: Normal Saline Flush 10 ML SYR IV (11:33)
[2024-04-21] MEDS: Acetaminophen 325 MG TAB 650 MG PO (15:24)
[2024-04-21 15:35] VITALS: BP 112/70; PULSE 88; RESP 18; TEMP 37.6; O2SAT 92
--- NOTE | 2024-04-21 15:39 | NUR.NOTE ---
Patient complaining of 8/10 pain. Patient not able to have morphine or oxycodone yet per order timing. RN gave 650mg acetaminophen to patient for pain. Patient had 3000mg of IV acetaminophen in the last 24 hours before PRN administration. Patient has now had 3650mg of acetaminophen out of the 4000mg of acetaminophen allowed to be administered in a 24 hour period. Patient resting calmly in bed.
--- NOTE | 2024-04-21 18:14 | NUR.NOTE ---
Nursing Note: Patient complaining of pain and peripheral IV infiltrated. Provider and RN actively trying to ween patient off of IV pain medication. Patient asked RN to leave her to have a bowel movement in the bathroom. RN educated on use of call light and giving PO pain medication in 45 minutes per order. RN went to patient's room to give pain medication when patient called out to WAX POT TENDER. Patient states that she was left in the bathroom and need medication. 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 Patient stated she did not call out because her was here and helping her. RN administered oxycodone according to order/protocol. Patient calmly resting in bed with minimal signs of discomfort and no agitation when RN left. 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 ADDIE Carter, got patient back to bathroom currently and educated national secretary light use and plan for pain management overnight.
[2024-04-21 19:08] VITALS: BP 107/66; PULSE 98; RESP 16; TEMP 37.3; O2SAT 81
[2024-04-21 19:43] VITALS: O2SAT 89
[2024-04-21] MEDS: traZODone 100 MG TAB 150 MG PO (21:22)
--- NOTE | 2024-04-22 | NUR.NOTE ---
Nursing Note: assumed care at 2300
[2024-04-22] MEDS: Acetaminophen 325 MG TAB 650 MG PO ×2 (00:10→06:27)
[2024-04-22] MEDS: oxyCODONE 5 MG TAB 7.5 MG PO ×2 (00:10→06:27)
[2024-04-22] MEDS: Albuterol HFA 8 GM 60 PUFF INH IH (01:25)
[2024-04-22 01:28] VITALS: PULSE 101; O2SAT 89
[2024-04-22] MEDS: Heparin 5,000 UNITS/ML VIAL 5000 UNITS SC (05:07)
[2024-04-22 07:09] LABS: HCT 39.5 % (36.0-46.0); HGB 12.8 g/dL (11.2-15.7); MCH 32.7 pg (27.0-33.0); MCHC 32.4 % (32.0-36.0); MCV 101 fL (80-95); MPV 9.4 fL (8.0-11.0); Platelet Count 263 10^3/uL (130-400); RBC 3.92 10^6/uL (3.93-5.22); RDW 13.1 % (11.7-14.6); RDW-SD 48.8 fL; WBC 11.42 10^3/uL (4.4-10.8)
[2024-04-22 07:36] VITALS: BP 93/66; PULSE 94; RESP 17; TEMP 37.7; O2SAT 85
[2024-04-22 07:48] LABS: C-Reactive Protein 11.83 mg/dL (<or=0.5)
--- NOTE | 2024-04-22 08:57 | W.PM.PROGNOT ---
Date of Service Date of service: 04/22/24 Time of Service: 08:57 Assessment and Plan Assessment and plan (1) Status post laparoscopic-assisted sigmoidectomy: Status: Acute Assessment and plan: Although Edith has had some low-grade temperatures, she said no discrete fever. Furthermore, her white blood cell count is downtrending, and her CRP is well less than 25, in that regard, I think anastomotic complications or infection are quite unlikely. Most importantly, she has been tolerating her diet without any issues at all. At this point, I think she is fine to be discharged home. We reviewed some discharge instructions together, and I will have the office contact her tomorrow for routine follow-up visit in the office Subjective Subjective Interval history since last seen: Edith looks very good this morning. She is sitting up and eating her breakfast. She denies any nausea or vomiting. Her pain scale is still about the same, but overall she says she seems to be doing better. She is required far less intravenous narcotic. Exam Resp Auscultation: wheezes (Faint wheeze) GI Other: Abdomen is soft and nondistended. Incisions are all clean and look great. Objective Last Vital Signs Temp 99.9 F H 04/22/24 07:36 Pulse 94 H 04/22/24 07:36 Resp 17 04/22/24 07:36 BP 93/66 L 04/22/24 07:36 Pulse Ox 85 L 04/22/24 07:36 Laboratory Results - last 24 hr 04/22/24 06:35 WBC 11.42 H RBC 3.92 L Hgb 12.8 Hct 39.5 MCV 101 H MCH 32.7 MCHC 32.4 RDW 13.1 Plt Count 263 MPV 9.4 C-Reactive Protein 11.83 H Time Spent with Patient Time Spent with Patient: 25-34 minutes Time was spent: preparing to see the patient(eg.review tests), ordering medications,tests, procedures, counseling the patient and care coordination
--- NOTE | 2024-04-22 08:59 | W.PM.DS.N ---
Date of service: 04/22/24 Time of Service: 08:59 DS: Diagnosis Discharge Diagnosis (1) Status post laparoscopic-assisted sigmoidectomy: Status: Acute Asessment and Plan: Discharge home today with outpatient postoperative follow-up Discharge Plan Disposition Patient Disposition: Home Condition: Improving Discharge Details Reason For Visit: Sigmoid Diverticulosis, Colon Resection Admit Date/Time: 04/19/24 06:22 Admit Provider: Andrae Phipps Attending Provider: Andrae Phipps [facility] Hospital Course: Edith is 63 years old. She was admitted on the for elective laparoscopic sigmoid colectomy for complications of diverticulitis. Postoperative course was complicated by some chronic pain that required titration of analgesia. Otherwise, she progressed very nicely. Labs are trending towards normal, and she was tolerating a diet without any symptoms. She is discharged home with outpatient postoperative follow-up [facility] Meds and New Rx's Prescriptions: Continued polyethylene glycol 3350 17 gram/dose powder 238 g PO ONCE Qty: 238 0RF Rx Instructions: take per colonoscopy instructions bisacodyl [Dulcolax (bisacodyl)] 5 mg tablet,delayed release (DR/EC) 5 mg PO ONCE Qty: 8 0RF Rx Instructions: take per colonoscopy instructions metronidazole 500 mg tablet 500 mg PO .COMPLEX Qty: 8 0RF Rx Instructions: 500 mg orally Per bowel surgery instructions; ondansetron HCl 8 mg tablet 8 mg PO Q12H Qty: 3 0RF trazodone 150 mg tablet 150 mg PO HS PRN (Reason: insomnia) Qty: 90 4RF metformin 500 mg tablet 500 mg PO BID Qty: 180 4RF Rx Instructions: Take 1 tablet twice a day albuterol sulfate 90 mcg/actuation HFA aerosol inhaler 2 puff IH QID PRN (Reason: bronchospasm) Qty: 8.5 12RF montelukast [Singulair] 10 mg tablet 10 mg PO DAILY Qty: 90 4RF diclofenac sodium [Arthritis Pain (diclofenac)] 1 % gel 4 g topical QID PRN Patient Comments: Prescribed by MADELEINE Daugherty [facility] 04/22/23 aj Rx Instructions: apply to single knee, ankle, foot; for foot includes sole/toes/top of foot hydrochlorothiazide 12.5 mg tablet See Rx Instructions .ROUTE .COMPLEX Qty: 90 4RF Dose Instruction: TAKE ONE TABLET BY MOUTH EVERY MORNING Rx Instructions: TAKE ONE TABLET BY MOUTH EVERY MORNING ipratropium-albuterol 0.5 mg-3 mg(2.5 mg base)/3 mL solution for nebulization 3 ml inhalation Q4H PRN (Reason: wheezing) Qty: 90 0RF Rx Instructions: COPD gabapentin 300 mg capsule See Rx Instructions .ROUTE .COMPLEX Qty: 180 5RF Dose Instruction: TAKE ONE CAPSULE BY MOUTH TWICE A DAY Rx Instructions: TAKE ONE CAPSULE BY MOUTH TWICE A DAY Katina Aerosphere 160-9-4.8 mcg/actuation HFA aerosol inhaler 2 inh inhalation QAM AND QPM Qty: 10.7 3RF neomycin 500 mg tablet 500 mg PO .COMPLEX Qty: 8 0RF Rx Instructions: 500 mg orally Per bowel surgery instructions; clonazepam 0.5 mg tablet,disintegrating 0.5 mg PO DAILY MDD 1 tablet PRN (Reason: anxiety) Qty: 28 0RF oxycodone-acetaminophen [Percocet] 5-325 mg tablet 1 tab PO BID MDD 2 tablets PRN (Reason: pain) Qty: 56 0RF multivitamin Tablet 1 tab PO DAILY Discharge Instructions Instructions: Colectomy, Partial and Total, (DC) Additional Instructions: Edith, it was very nice meeting you in the hospital, and I hope you make a quick recovery from your surgery as you transition home. Once you get home, I would like you to resume all of your regular medications that you took before surgery. As we discussed, you can use your oxycodone at home to help with postoperative pain. I encourage you to add Tylenol and ibuprofen over the next 2 days as well. I would alternate each medication about every 6 hours. It is fine for you to increase your home dosing of oxycodone from your baseline of 5 mg, up to 7-1/2 mg as needed. I would hope that you can wean this back down to your regular dosing in the next few days. As we discussed, I would like you to keep track of your temperature for the next 72 hours. You should take it once in the morning and once in the evening, and at any time during the day if you feel febrile or ill. If your temperature exceeds 100, please call the office at [phone] Tuesday through Tuesday during regular business hours. If you have any fevers today, just call the hospital, and asked them to page the surgeon on-call, and they will put you in touch with me. With regards to your diet, I think it is fine for you to resume anything that you have a taste for. Eat when you feel hungry, and just as much as you need to feel satisfied, you do not need to clear plate every time. If you find your oxycodone to be constipating, it may be useful to use some type of [id number] stool softener or laxative as well. Please restrict her lifting to no greater than 1 gallon of milk, or about 5 pounds. You should be up and moving around a little more more each day. I would also encourage you to use the incentive spirometer that we are sending you home with. Slow easy deep breaths a few times through the day will be helpful. You should try to be raising the green line higher and higher each time. If at any point, you feel like something is out of the ordinary please let us know. With regards to the incisions, you should wash them with warm soapy water twice daily. As we discussed in the hospital, if you find your clothing to be irritating the incision sites, it is fine to use some simple Band-Aids to help relieve that discomfort. Otherwise, you do not need any dressings on the incisions. I will have the office give you a call tomorrow to make sure that we have a postoperative visit scheduled. If you need anything else in the meantime, please do not hesitate to call. Activity:: No heavy lifting Equipment/Supplies:: Incentive spirometer Diet:: As Tolerated DS: Summary Time Spent with Patient providing and/or coordinating discharge services: Greater than 30 minutes Status at Discharge Functional status at discharge: independent ambulation Overall status at discharge: patient is progressing back to baseline Mental Status: mental status grossly normal Speech and Movement: speech and movement normal Mood: congruent mood Affect: normal affect Quality:SDOH Health Related Social Needs: No Data to Display Exam GI Other: Abdomen is soft and nondistended. Incisions are clean and healing nicely. Extrem Other: No lower extremity edema or tenderness Psych Mental Status: mental status grossly normal Speech and Movement: speech and movement normal Mood: congruent mood Affect: normal affect DS: Data Vitals/I&O Vitals and I&O: Vital Signs Temperature 99.9 F H 04/22/24 07:36 Temperature Source Temporal Artery Scan 04/22/24 07:36 Pulse 94 H 04/22/24 07:36 Pulse Rhythm Regular 04/19/24 06:33 Respiratory Rate 17 04/22/24 07:36 Respiratory Depth Deep 04/19/24 06:33 Blood Pressure 93/66 L 04/22/24 07:36 Pulse Oximetry 85 L 04/22/24 07:36 Respiratory End-tidal CO2 45 04/19/24 13:35 Oxygen Delivery Method Room Air 04/22/24 07:36 Oxygen Flow Rate 0 04/22/24 07:36 Pain Level 8 04/22/24 07:36 Comment patient did coughing and deep breathing. used inhaler and sat is coming up will re check. 04/21/24 19:43 Intake & Output 04/21/24 04/21/24 04/22/24 11:59 23:59 11:59 Intake Total 1115 / 2555 1440 / 2555 Balance 1115 / 2555 1440 / 2555 Intake: IV 1115 / 1115 0 / 1115 Oral 1440 / 1440 Other: Urine Color Yellow Yellow Pale Urine Appearance Clear Clear Clear Urine Odor None Comment Voided unmeasured and unwitnessed amount in toilet. 1x occurrence Stool Size Small Smear Stool Characteristics Soft Voiding Methods Toilet Data Completed and Pending Labs on day of discharge: Labs from last 24 hours 04/22/24 06:35 WBC 11.42 H RBC 3.92 L Hgb 12.8 Hct 39.5 MCV 101 H MCH 32.7 MCHC 32.4 RDW 13.1 Plt Count 263 MPV 9.4 C-Reactive Protein 11.83 H PFSH All Active Problems (Updated 04/20/24 @ 07:27 by Chaitanya Mackenzie MD) Status post laparoscopic-assisted sigmoidectomy (Acute ~03/2024) Paresthesia of left foot (Acute) Foreign body of left ankle (Acute) Peroneal tendinitis of left lower extremity (Acute) Obesity (BMI 30.0-34.9) (Acute) Muscle cramps (Acute) lower extremities, forearms and toes and hands Easy bruising (Acute) Sural neuropathy (Acute) COPD (chronic obstructive pulmonary disease) (Chronic 06/07/11) hypoxia, exacerbation [facility]; hypoxia post op neck 03/2014 Hypertension (Chronic) Left ankle pain (Acute) CRPS (complex regional pain syndrome) (Acute) Left ankle instability (Acute) Foot pain, left (Acute) Infection (Acute) Ischial bursitis of left side (Acute) Metatarsalgia of both feet (Acute) Newsome's neuroma of right foot (Acute) Buttock pain (Acute) Plantar fascial fibromatosis of left foot (Acute) Buttock pain (Acute) Speech disturbance (Chronic 07/28/15) Spondylolisthesis at L5-S1 level (Chronic 04/25/13) MRI, LUMBAR 2000: GRADE 1 2 LB surgeries with fusing Pulmonary hypertension (Chronic 12/22/17) Polycythemia (Chronic 03/15/16) Neck pain (Chronic 01/10/15) surgery March,, repeat with titanium plates and cadaver grafts 06/11/15 Insomnia (Chronic 06/14/16) Headache (Chronic 04/25/13) HEAD CT 2005 NORMAL Essential hypertension (Chronic) Depressive disorder (Chronic 11/22/12) Chronic pain (Chronic 02/28/15) Anxiety (Chronic 12/26/12) 11/24/17/ SYBIL 7 SCORE=20 Medical History (Updated 04/20/24 @ 07:27 by Chaitanya Mackenzie MD) Diverticula of colon Stricture of sigmoid colon Hyperplastic colon polyp (~01/2024) Leg wound, left Colorectal polyps Diverticulosis Memory impairment of gradual onset pt. states r/t to a mild concussion 2014, but memory has returned and has had no issues. Shortness of breath pt. states she was overmedicated on steroids, and since been weened off and states her breathing is perfect. Unspecified injury of head, sequela 07/28/15 continue post-concussive headaches Lipoma of axilla 07/28/15 left. 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 Tubular adenoma x2. Sessile serrated adenoma x1. Status post cervical spinal arthrodesis History of bilateral tubal ligation H/O reduction mammoplasty S/P bunionectomy B/L H/O skin graft for lumbar fusion (scars B/L flanks/buttocks H/O spinal fusion 07/25/99 L5-S1 cervical fusion 03/[address] C5-[address] Dobson, Teresita ; 06/11/15 SKIN GRAFT FOR LUMBAR FUSION (SCARS B/L FLANKS/BUTTOCKS) LIVER BX AXILLARY MASS BX Family History Mother , at age 74. Asthma Father , AGE 74 Hip fracture Alcohol abuse CAD (coronary artery disease) Alzheimer disease Heart disease Sister Heart disease Alzheimer disease Brother , AGE 70 Alcohol abuse Heart disease Hyperlipidemia Mental disorder Stroke Brother , AGE 58 CAD (coronary artery disease) Stroke Depression Brother , AGE 55 Alcohol abuse CAD (coronary artery disease) FAMILY HISTORY Essential hypertension Hyperlipidemia Sister Diabetes Hyperlipidemia Sister No problems noted. Sister Asthma Sister Asthma Brother Depression Daughter Depression Daughter Depression Asthma Social History Smoking/Tobacco Use Status: Former Tobacco Use tobacco type: cigarettes Quit Date: 07/25/10 Tobacco: How many years used: 20 Second Hand Exposure: Yes Smoking risk assessment performed?: Yes Alcohol Intake: former Drug use: Occasionally Substance use type: marijuana Details: She consumes THC drops at night. Caregiver/Support person: No Household members: spouse Housing: house Communication Needs: None Do you need help understanding health information?: Never Pets and animals: No Sexually active: No Do you think of yourself as: straight/heterosexual Current gender identity: male What is your relationship status?: How often do you talk on the phone with friends or family?: three or more times per week How often do you get together with friends or relatives?: three or more times per week Do you belong to any clubs or organized social groups?: no Panel score (0-1 are the most socially isolated patients): 2 What type of physical activity do you participate in: swimming Duration: 45-60 minutes/day Frequency: 5-6 times per week Lisa/Synagogue: Christianity Special lisa needs: No Seatbelt use: always Helmet use: Yes Helmet use: always Drive intox or ride w/intox jinriksha driver: No Do you feel safe at home: Yes Do you feel safe in your relationship?: Yes Time Spent with Patient Time Spent with Patient: 45-69 minutes Time was spent: preparing to see the patient(eg.review tests), counseling the patient and care coordination
[2024-04-22] MEDS: hydroCHLOROthiazide 12.5 MG TAB PO (09:03)
[2024-04-22] MEDS: Ketorolac 30 MG/ML VIAL IVP (09:03)
[2024-04-22] MEDS: Montelukast 10 MG TAB PO (09:03)
[2024-04-22] MEDS: Gabapentin 300 MG CAP PO (09:03)
[2024-04-22] MEDS: MORPHine IR 15 MG TAB PO (09:36)
--- NOTE | 2024-04-22 11:00 | CMDISCH_ITS ---
Date of service: 04/22/24 Time of Service: 11:00 LACE Index Scoring Tool Questions: Length of Stay (in days): 3 Was the patient admitted via the E.D.?: No E.D. Visits: 0 Answers: Total Score: 3 Risk of Readmission: Low Risk Care Management Discharge Plan Reason for Hospitalization: resection of small bowel Discharge Plan: Edith is discharged home today with new orders for wound care. She feels confident that she can care for the wound without nursing services. She has a large supportive network of friends and family. Edith will follow up with her surgeon and plan of care and will transport with family. Patient/Family Education Needs: Review of discharge instructions, activity, limitations, follow up plan, and Ask me three [facility] Health Related Social Needs: No Data to Display
== END 2024-04-22 11:36 | disposition home or self-care (01) | DRG 330 ==
LOC: PDS 06:23 → MS 13:59
PROVIDERS: Surgery; Urology; Admitting Provider Student in an Organized Health Care Education/Training Program; PCP Nurse Practitioner Family; Visit Provider Student in an Organized Health Care Education/Training Program
PROC: 0DTE4ZZ Resection of Large Intestine, Percutaneous Endoscopic Approach (ICD-10-PCS; CPT 44210; principal; 2024-04-19 07:30)
PROC: 0T7D8DZ Dilation of Urethra with Intraluminal Device, Via Natural or Artificial Opening Endoscopic (ICD-10-PCS; CPT 52332; 2024-04-19 07:30)
DX: K57.20 Diverticulitis of large intestine with perforation and abscess without bleeding (principal); K56.699 Other intestinal obstruction unspecified as to partial versus complete obstruction; J44.9 Chronic obstructive pulmonary disease, unspecified; M76.72 Peroneal tendinitis, left leg; E66.9 Obesity, unspecified; I10 Essential (primary) hypertension; M77.41 Metatarsalgia, right foot; M77.42 Metatarsalgia, left foot; I27.20 Pulmonary hypertension, unspecified; D75.1 Secondary polycythemia; M54.2 Cervicalgia; F41.9 Anxiety disorder, unspecified; G89.29 Other chronic pain; F32.A Depression, unspecified; Z68.30 Body mass index [BMI] 30.0-30.9, adult; Z79.899 Other long term (current) drug therapy
CPT/HCPCS: 44207; 44213; 45378; 52281; 00123; 36415; 80048; 85027; 94640; 86140; 88307; 94664; 94760; C9290; J0131; J0665; J0690; J1100; J1170; J1644; J1836; J1885; J2270; J2371; J2405; J2704; J3010; J3475

== ENCOUNTER 2024-10-16 12:25 | Outpatient (CLI) | payer OTHER, SELFPAY ==
--- NOTE | 2024-10-16 12:36 | DI.RAD_ITS ---
Exam(s) XR CHEST 2V PA LATERAL EXAM: XR CHEST 2V PA LATERAL CLINICAL HISTORY: R05.9 cough x4 weeks TECHNIQUE: 2D digital imaging was performed. Two views. COMPARISON: CR CHEST 2 VIEWS PA,LAT from 12/08/[address] CHEST W from 03/12/2019 FINDINGS: HEART: Normal size. Aorta: Not dilated. PULMONARY VASCULATURE: Normal. MEDIASTINUM: Unremarkable. LUNGS: Emphysematous changes. Basilar scarring. No focal infiltrate. PLEURAL SPACE: No pleural effusion or pneumothorax. BONE:Hardware lower cervical spine. SOFT TISSUES: Unremarkable. IMPRESSION: No acute abnormality. DATA REPOSITORY: RADIATION DOSE DELIVERED:
== END 2024-10-16 12:45 ==
LOC: DI 12:26
PROVIDERS: PCP Nurse Practitioner Family; Visit Provider Nurse Practitioner Family
DX: R05.9 Cough, unspecified (principal)
CPT/HCPCS: 71046

== ENCOUNTER 2025-03-28 14:56 | Outpatient (CLI) | payer OTHER, SELFPAY ==
[2025-03-28 11:18] LABS: HCT 49.2 % (36.0-46.0); HGB 15.9 g/dL (11.2-15.7); MCH 31.3 pg (27.0-33.0); MCHC 32.3 % (32.0-36.0); MCV 97 fL (80-95); MPV 9.0 fL (8.0-11.0); Platelet Count 347 10^3/uL (130-400); RBC 5.08 10^6/uL (3.93-5.22); RDW 12.9 % (11.7-14.6); RDW-SD 46.3 fL; WBC 9.82 10^3/uL (4.4-10.8)
[2025-03-28 11:35] LABS: Hemoglobin A1C 5.1 % (<5.7)
[2025-03-28 12:04] LABS: ALT 20 U/L (14-59); AST 22 U/L (15-37); Albumin 4.2 g/dL (3.4-5.0); Alkaline Phosphatase 80 U/L (46-116); Anion Gap 10.0 mmol/L (3-11); BUN 16 mg/dL (7-18); Bilirubin, Total 0.4 mg/dL (0.2-1.0); CO2 30.0 mmol/L (21.0-32.0); Calcium 10.1 mg/dL (8.5-10.1); Calculated LDL 147 mg/dL (<100); Chloride 102 mmol/L (98-107); Cholesterol 260 mg/dL (<200); Estimated GFR 82.23 (mL/min/1.73m2); Glucose 97 mg/dL (74-106); HDL Cholesterol 99 mg/dL (>or=50); Potassium 4.2 mmol/L (3.5-5.1); Sodium 142 mmol/L (136-145); Total Protein 8.1 g/dL (6.4-8.2); Triglyceride 72 mg/dL (<150)
== END 2025-03-28 14:57 | disposition home or self-care (01) ==
LOC: LBO 14:57
PROVIDERS: PCP Nurse Practitioner Family; Visit Provider Nurse Practitioner Family
DX: Z00.00 Encounter for general adult medical examination without abnormal findings (principal); R73.03 Prediabetes; I10 Essential (primary) hypertension; F41.9 Anxiety disorder, unspecified; F32.9 Major depressive disorder, single episode, unspecified; E66.9 Obesity, unspecified
CPT/HCPCS: 36415; 80053; 80061; 85027; 86803; 83036

== ENCOUNTER 2025-04-04 03:19 | Outpatient (CLI) | payer OTHER, SELFPAY ==
--- NOTE | 2025-04-04 05:31 | DI.MAMMO_ITS ---
Exam(s) MAMMO SCREENING EXAM: MAMMO SCREENING CLINICAL HISTORY: screening,z12.39. TECHNIQUE: Bilateral full field digital CC and MLO mammographic images were obtained with 3D tomosynthesis and utilizing computer aided detection (CAD). COMPARISON: Prior mammograms were reviewed. FINDINGS: There has been no significant change in the appearance and distribution of the fibroglandular tissue. Again noted is evidence of prior bilateral reduction surgery. Asymmetric tissue laterally in the right breast is unchanged from prior mammograms. In the left breast there is an asymmetric density-possible 9 x 6 mm nodule located 3 cm in from the nipple on the CC view. Spot compression view recommended. There are no malignant-appearing microcalcification groups in this region or elsewhere in either breast. There is no significant architectural distortion nor skin thickening-retraction. IMPRESSION: 1. No radiographic evidence of malignancy in the right breast. 2. Asymmetric density-possible nodule in the left breast as described above. Spot compression CC view and ultrasound recommended. BI-RADS Category 0 - Incomplete: Need additional imaging evaluation Breast Density - Category B - There are scattered areas of fibroglandular density. Breast density Category C or D implies that the patient has dense breast tissue. Dense breast tissue can make it harder to find cancer on a mammogram. Dense breast tissue is also associated with an increased risk of breast cancer. This information about the result of the mammogram report was provided to the patient to raise their awareness. Use this report when you speak with the patient about their risks for breast cancer, which includes their family history. At that time, you may recommend additional screening tests (Ultrasound or MRI) as these tests may add significant information. A negative radiographic report should not delay biopsy if a dominant or clinically suspicious mass is present. Up to ten percent of cancers are not identified on mammography. A negative report may reinforce clinical impression. Adenosis and dense breasts may obscure an underlying neoplasm. False positive reports average 6 to 10%. Patient will receive a letter notifying them of these results.
== END 2025-04-04 03:39 ==
PROVIDERS: PCP Nurse Practitioner Family; Visit Provider Nurse Practitioner Family
DX: Z12.31 Encounter for screening mammogram for malignant neoplasm of breast (principal); R92.323 Mammographic fibroglandular density, bilateral breasts
CPT/HCPCS: 77063; 77067

== ENCOUNTER 2025-04-15 15:25 | Emergency (ER) | payer OTHER, SELFPAY ==
[2025-04-15 15:33] VITALS: BP 167/101; PULSE 98; RESP 18; TEMP 36.8; O2SAT 91
--- NOTE | 2025-04-15 15:45 | DI.RAD_ITS ---
Exam(s) XR CHEST 2V PA LATERAL EXAM: XR CHEST 2V PA LATERAL CLINICAL HISTORY: left clavicle pain post mammogram TECHNIQUE: 2D digital imaging was performed of the chest. Two images were obtained. PA and lateral views were obtained. COMPARISON: CR XR CHEST 2V PA LATERAL from 10/16/2024 FINDINGS: MEDIASTINUM: Normal. HEART: Normal. PULMONARY VASCULATURE: Normal. LUNGS: The lungs are hyperinflated suggesting underlying COPD. There are no focal consolidating infiltrates. PLEURAL SPACE: No pleural effusion or pneumothorax. BONE:Within normal limits for the patient's age. Anterior cervical fusion is seen in the lower cervical spine. The clavicles are unremarkable. OTHER FINDINGS:Normal. IMPRESSION: 1. No acute pulmonary findings. 2. The clavicles are unremarkable. DATA REPOSITORY: RADIATION DOSE DELIVERED:
[2025-04-15] MEDS: Diclofenac 1% Gel 100 GM TUBE TP (16:36)
[2025-04-15 17:44] VITALS: BP 151/90; PULSE 97; RESP 14; O2SAT 90
--- NOTE | 2025-04-15 19:18 | ED.GENADUL_ITS ---
Discharge Plan Disposition Patient Disposition: Home Condition: Stable Discharge Details Clinical Impression: Cervical muscle strain Primary Care Provider: Anne Marie Ruth ED Provider: Myranda Hall Home Meds and New Rx's Prescriptions: Continued trazodone 150 mg tablet 150 mg PO HS PRN (Reason: insomnia) Qty: 90 4RF tirzepatide (weight loss) 15 mg/0.5 mL pen injector 15 mg subcut QWEEK Qty: 6 2RF Rx Instructions: for 4 weeks gabapentin 300 mg capsule See Rx Instructions .ROUTE .COMPLEX Qty: 180 5RF Dose Instruction: TAKE ONE CAPSULE BY MOUTH TWICE A DAY Rx Instructions: TAKE ONE CAPSULE BY MOUTH TWICE A DAY ipratropium-albuterol 0.5 mg-3 mg(2.5 mg base)/3 mL solution for nebulization 3 ml inhalation Q4H PRN (Reason: wheezing) Qty: 90 0RF Rx Instructions: COPD albuterol sulfate 90 mcg/actuation HFA aerosol inhaler 2 puff IH QID PRN (Reason: bronchospasm) Qty: 8.5 12RF Breztri Aerosphere 160-9-4.8 mcg/actuation HFA aerosol inhaler 2 inh inhalation QAM AND QPM Qty: 10.7 3RF clonazepam 0.5 mg tablet,disintegrating 0.5 mg PO DAILY MDD 1 tablet PRN (Reason: anxiety) Qty: 28 0RF multivitamin Tablet 1 tab PO DAILY Discharge Instructions Instructions: Cervical Muscle Strain (DC) Additional Instructions: apply Voltaren gel topically You may use Lidoderm patches 12 hours on, 12 hours Recheck with your doctor next week Please return should develop worsening pain, shortness of breath, or should any new concerns arise Referrals: Anne Marie Ruth NP [Primary Care Provider, Medicine] HPI General Date/Time Provider Initiated Documentation: 04/15/25 15:36 . HPI Narrative: 65-year-old female chest and neck pain after a mammogram on the March. She states she has been a very uncomfortable position and thinks she pressed down on her left breast strained her lateral neck. She had pain overlying her clavicle next time. She has pain with with right lateral movement of her neck. She has been taking supportive care at home without relief in her symptoms. She denies any chest or thorax pain. She denies any shortness of breath. She denies any dizziness or headache. Related Data Home Medications ?Medication ?Instructions ?Recorded ?Confirmed trazodone 150 mg tablet 150 mg PO HS PRN insomnia #9 0 tabs 06/29/21 04/15/25 gabapentin 300 mg capsule See Rx Instructions .Route 0 11/23/23 04/15/25 .COMPLEX #180 caps multivitamin 1 tab PO DAILY 04/16/24/09/18 ipratropium 0.5 mg-albuterol 3 mg 3 ml inhalation Q4H PRN wheezing 10/12/24 04/15/25 (2.5 mg base)/3 mL nebulization #90 mL soln albuterol sulfate 90 mcg/actuation 2 puff inhalation Q ID PRN 02/04/25 04/15/25 aerosol inhaler bronchospasm #8.5 grams budesonide 160 mcg-glycopyr 9 2 inh inhalation QAM AND QPM #10.7 02/05/25 04/15/25 mcg-formot 4.8 mcg/actuation HFA grams inhaler (Breztri Aerosphere) clonazepam 0.5 mg disintegrating 0.5 mg PO DAILY PRN a nxiety #28 03/28/25 04/15/25 tablet tabs tirzepatide (weight loss) 15 15 mg (0.5 mL) subcut QWE EK #6 mL 03/28/25 04/15/25 mg/0.5 mL subcutaneous pen injector Previous Rx's ?Medication ?Instructions ?Recorded trazodone 150 mg tablet 150 mg PO HS PRN insomnia #9 0 tabs 06/29/21 gabapentin 300 mg capsule See Rx Instructions .Route 0 11/23/23 .COMPLEX #180 caps ipratropium 0.5 mg-albuterol 3 mg 3 ml inhalation Q4H PRN wheezing 10/12/24 (2.5 mg base)/3 mL nebulization #90 mL soln albuterol sulfate 90 mcg/actuation 2 puff inhalation Q ID PRN 02/04/25 aerosol inhaler bronchospasm #8.5 grams budesonide 160 mcg-glycopyr 9 2 inh inhalation QAM AND QPM #10.7 02/05/25 mcg-formot 4.8 mcg/actuation HFA grams inhaler (Breztri Aerosphere) clonazepam 0.5 mg disintegrating 0.5 mg PO DAILY PRN a nxiety #28 03/28/25 tablet tabs tirzepatide (weight loss) 15 15 mg (0.5 mL) subcut QWE EK #6 mL 03/28/25 mg/0.5 mL subcutaneous pen injector Allergies Allergy/AdvReac Type Severity Reaction Status Date / Time Penicillins Allergy Severe SKIN RASH Verified 04/15/25 15:36 General Stated Complaint: Orthopedic JACK: 4 Exam Narrative Exam Narrative: Alert and oriented 64-year-old female with tenderness over her clavicle and left SCM, mild swelling over left SCM tenderness over SCM muscle, no obvious hematoma no bruit over carotids. Distal pulses intact to upper extremities sensation intact tenderness with lateral rotation to the right neck Course Vital Signs Vital signs: Vital Signs Temperature 36.8 C 04/15/25 15:33 Pulse 98 H 04/15/25 15:33 Respiratory Rate 18 04/15/25 15:33 Blood Pressure 167/101 H 04/15/25 15:33 Pulse Oximetry 91 L 04/15/25 15:33 Temperature 36.8 C 04/15/25 15:33 Temperature Source Tympanic 04/15/25 15:33 Pulse 97 H 04/15/25 17:44 Respiratory Rate 14 04/15/25 17:44 Blood Pressure 151/90 H 04/15/25 17:44 Pulse Oximetry 90 L 04/15/25 17:44 Oxygen Delivery Method Room Air 04/15/25 15:33 Oxygen Flow Rate 0 04/15/25 15:33 Pain Level 6 04/15/25 15:33 Medical Decision Making Results: Chest x-ray per radiology interpretation my review does not show evidence of acute abnormality Patient presents almost 2 weeks status post mammogram likely SCM strain and clavicle contusion from digital mammogram machine. Given diclofenac gel with some mild relief of symptoms. Has Lidoderm at home which she will use. Given a soft collar to rest her neck for the next several days. Ice or heat as tolerated at home. Return precautions reviewed and patient expressed understanding discharged home in stable condition with stable vitals oxygenation 92% on room air no acute distress PFSH All Active Problems (Updated 04/15/25 @ 17:34 by MADELEINE Diallo) Cervical muscle strain (Acute) Prediabetes (Acute) Status post laparoscopic-assisted sigmoidectomy (Acute ~03/2024) Paresthesia of left foot (Acute) Foreign body of left ankle (Acute) Peroneal tendinitis of left lower extremity (Acute) Obesity (BMI 30.0-34.9) (Acute) Muscle cramps (Acute) lower extremities, forearms and toes and hands Easy bruising (Acute) Sural neuropathy (Acute) COPD (chronic obstructive pulmonary disease) (Chronic 06/07/11) hypoxia, exacerbation [facility]; hypoxia post op neck 03/2014 Hypertension (Chronic) Left ankle pain (Acute) CRPS (complex regional pain syndrome) (Acute) Left ankle instability (Acute) Foot pain, left (Acute) Infection (Acute) Ischial bursitis of left side (Acute) Metatarsalgia of both feet (Acute) Newsome's neuroma of right foot (Acute) Buttock pain (Acute) Plantar fascial fibromatosis of left foot (Acute) Buttock pain (Acute) Speech disturbance (Chronic 07/28/15) Spondylolisthesis at L5-S1 level (Chronic 04/25/13) MRI, LUMBAR 2000: GRADE 1 2 LB surgeries with fusing Pulmonary hypertension (Chronic 12/22/17) Polycythemia (Chronic 03/15/16) Neck pain (Chronic 01/10/15) surgery March,, repeat with titanium plates and cadaver grafts 06/11/15 Insomnia (Chronic 06/14/16) Headache (Chronic 04/25/13) HEAD CT 2005 NORMAL Essential hypertension (Chronic) Depressive disorder (Chronic 11/22/12) Chronic pain (Chronic 02/28/15) Anxiety (Chronic 12/26/12) 11/24/17/ SYBIL 7 SCORE=20 Medical History Diverticula of colon Stricture of sigmoid colon Hyperplastic colon polyp (~01/2024) Leg wound, left Colorectal polyps Diverticulosis Memory impairment of gradual onset pt. states r/t to a mild concussion 2014, but memory has returned and has had no issues. Shortness of breath pt. states she was overmedicated on steroids, and since been weened off and states her breathing is perfect. Unspecified injury of head, sequela 07/28/15 continue post-concussive headaches Lipoma of axilla 07/28/15 left. 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 Tubular adenoma x2. Sessile serrated adenoma x1. Status post cervical spinal arthrodesis History of bilateral tubal ligation H/O reduction mammoplasty S/P bunionectomy B/L H/O skin graft for lumbar fusion (scars B/L flanks/buttocks H/O spinal fusion 07/25/99 L5-S1 cervical fusion 03/[address] C[address] Dobson, Teresita Moore; 06/11/15 SKIN GRAFT FOR LUMBAR FUSION (SCARS B/L FLANKS/BUTTOCKS) LIVER BX AXILLARY MASS BX Family History Mother , at age 74. Asthma Father , AGE 74 Hip fracture Alcohol abuse CAD (coronary artery disease) Alzheimer disease Heart disease Sister Heart disease Alzheimer disease Brother , AGE 70 Alcohol abuse Heart disease Hyperlipidemia Mental disorder Stroke Brother , AGE 58 CAD (coronary artery disease) Stroke Depression Brother , AGE 55 Alcohol abuse CAD (coronary artery disease) FAMILY HISTORY Essential hypertension Hyperlipidemia Sister Diabetes Hyperlipidemia Sister No problems noted. Sister Asthma Sister Asthma Brother Depression Daughter Depression Daughter Depression Asthma Social History Smoking/Tobacco Use Status: Former Tobacco Use tobacco type: cigarettes Quit Date: 07/25/10 Tobacco: How many years used: 20 Second Hand Exposure: Yes Smoking risk assessment performed?: Yes Alcohol Intake: former Drug use: Occasionally Substance use type: marijuana Details: She consumes THC drops at night. Caregiver/Support person: No Household members: spouse Housing: house Communication Needs: None Do you need help understanding health information?: Never Pets and animals: No Sexually active: No Do you think of yourself as: straight/heterosexual Current gender identity: male What is your relationship status?: How often do you talk on the phone with friends or family?: three or more times per week How often do you get together with friends or relatives?: three or more times per week Do you belong to any clubs or organized social groups?: no Panel score (0-1 are the most socially isolated patients): 2 What type of physical activity do you participate in: swimming Duration: 45-60 minutes/day Frequency: 5-6 times per week Lisa/Rastafari: Cheondoism Special lisa needs: No Seatbelt use: always Helmet use: Yes Helmet use: always Drive intox or ride w/intox river driver: No Do you feel safe at home: Yes Do you feel safe in your relationship?: Yes
== END 2025-04-15 17:46 | disposition home or self-care (01) ==
PROVIDERS: Emergency Provider Physician Assistant; PCP Nurse Practitioner Family
DX: S16.1XXA Strain of muscle, fascia and tendon at neck level, initial encounter (principal); Z98.1 Arthrodesis status; Z79.899 Other long term (current) drug therapy; X58.XXXA Exposure to other specified factors, initial encounter
CPT/HCPCS: 99283; 71046

== ENCOUNTER 2025-05-03 03:17 | Outpatient (CLI) | payer OTHER, SELFPAY ==
--- NOTE | 2025-05-03 09:30 | DI.MAMMO_ITS ---
Exam(s) MAMMO SCREEN CALL BACK UNI EXAM: MAMMO SCREEN CALL BACK UNI CLINICAL HISTORY: F/U [facility] MAMMO, ASYMMETRIC DENSITY POSSIBLE NODULE LT BREAST. TECHNIQUE: Craniocaudal and mediolateral oblique Full Field Digital Mammography views of the left breast with Computer Aided Diagnosis. COMPARISON: Comparison is made with prior examinations. FINDINGS: Mammography/Tomosynthesis: Masses/Architectural Distortion: There are no suspicious masses or areas of architectural distortion present. The area of concern dissipates with the additional view. Microcalcifictions: No suspicious pleomorphic-type are seen. Skin Thickening/Nipple Retraction: None. IMPRESSION: 1. No evidence of malignancy is noted. 2. Unless there is more urgent need, follow-up screening mammography is recommended, as per [employer] guidelines. 3. The findings were discussed with the patient on the date of the examination. BI-RADS Category 1 - Negative Breast Density - Category B - There are scattered areas of fibroglandular density. Breast density Category C or D implies that the patient has dense breast tissue. Dense breast tissue can make it harder to find cancer on a mammogram. Dense breast tissue is also associated with an increased risk of breast cancer. This information about the result of the mammogram report was provided to the patient to raise their awareness. Use this report when you speak with the patient about their risks for breast cancer, which includes their family history. At that time, you may recommend additional screening tests (Ultrasound or MRI) as these tests may add significant information. A negative radiographic report should not delay biopsy if a dominant or clinically suspicious mass is present. Up to ten percent of cancers are not identified on mammography. A negative report may reinforce clinical impression. Adenosis and dense breasts may obscure an underlying neoplasm. False positive reports average 6 to 10%. Patient will receive a letter notifying them of these results.
== END 2025-05-03 03:37 ==
LOC: DI 03:17
PROVIDERS: PCP Nurse Practitioner Family; Visit Provider Nurse Practitioner Family
DX: Z12.31 Encounter for screening mammogram for malignant neoplasm of breast (principal)
CPT/HCPCS: 77063; 77067

== ENCOUNTER 2025-05-16 16:18 | Outpatient (REF) | payer OTHER, SELFPAY ==
--- NOTE | 2025-05-16 14:15 | SKI_PTH ---
PATIENT: Kandi Du LOC: [facility] U#:[id number] AGE/SX: 64/F ROOM: RE05/16/[address]: Anne Marie Ruth NP : 1960 BED: DIS: 05/16/2025 SPEC #: [id number] RECD: 05/16/25 18:00 STATUS: DANILO LANDAVERDE #: [id number] JAYA: 05/16/25 14:[address]: Anne Marie Ruth DEPT: Surgical Specimen RECD BY: Myranda Reeder Tissues: 1 - SKIN BIOPSY(SHAVE/PUNCH) Procedures: SKIN LEVEL 4 Comments: [id number]
== END 2025-05-16 16:19 | disposition home or self-care (01) ==
LOC: LBN 16:18
PROVIDERS: PCP Nurse Practitioner Family; Visit Provider Nurse Practitioner Family
DX: L57.0 Actinic keratosis (principal)
CPT/HCPCS: 88305